=== PATIENT | female | born 1955 | race Caucasian/White ===

== ENCOUNTER 2017-12-21 17:03 | Emergency (ER) | payer SELFPAY ==
[~2017-12-21] VITALS: Ht 157.5 cm; Wt 93.0 kg
[~2017-12-21 17:03] MED LIST: VASOTEC10 M1 PO
--- NOTE | 2017-12-21 19:08 | Diagnostic Imaging Report ---
ADDENDUM #1 Indication: Fall Signed by: Dr. Shaji Langford MD on 12/25/2017 9:12 AM ORIGINAL REPORT EXAM: ANKLE 3+ VIEWS LEFT DATE: 12/21/2017 5:58 PM INDICATION: \S\FALL COMPARISON: None FINDINGS: No significant soft tissue swelling. Probable osteochondral lesion medial aspect talar dome. Mortise is symmetric. Moderate plantar and posterior calcaneal enthesophytes present. IMPRESSION: No definite acute finding. Probable osteochondral lesion of the talar dome. Outpatient MRI could be obtained for further evaluation if indicated. Signed by: Dr. Shaji Langford MD on 12/21/2017 7:05 PM
--- NOTE | 2017-12-21 19:08 | Diagnostic Imaging Report ---
ADDENDUM #1 Indication: Fall Signed by: Dr. Shaji Langford MD on 12/25/2017 9:12 AM ORIGINAL REPORT EXAM: KNEE LEFT THREE VIEWS DATE: 12/21/2017 5:58 PM INDICATION: \S\FALL COMPARISON: None FINDINGS: No fracture or subluxation. No significant degenerative change. No significant joint effusion. IMPRESSION: No acute findings. Signed by: Dr. Shaji Langford MD on 12/21/2017 7:05 PM
--- NOTE | 2017-12-21 19:09 | Diagnostic Imaging Report ---
ADDENDUM #1 Indication: Fall Signed by: Dr. Shaji Langford MD on 12/25/2017 9:12 AM ORIGINAL REPORT EXAM: HIP LEFT 2-3 VW (+/- PELVIS) DATE: 12/21/2017 5:58 PM INDICATION: \S\FALL COMPARISON: None FINDINGS: No acute fracture subluxation. Mild left hip osteoarthritis with preserved joint space. Well-corticated ossific density inferior to initial tuberosity likely sequela of prior trauma. Degenerative changes SI joints. IMPRESSION: Chronic changes as above. Signed by: Dr. Shaji Langford MD on 12/21/2017 7:06 PM
[2017-12-21 21:15] VITALS: BP 141/79
== END 2017-12-21 21:15 | disposition home or self-care (01) ==
LOC: ER 17:03
DX: S70.02XA Contusion of left hip, initial encounter (principal); S80.02XA Contusion of left knee, initial encounter; S90.02XA Contusion of left ankle, initial encounter; R26.89 Other abnormalities of gait and mobility; W01.0XXA Fall on same level from slipping, tripping and stumbling without subsequent striking against object, initial encounter; Y92.008 Other place in unspecified non-institutional (private) residence as the place of occurrence of the external cause; I10 Essential (primary) hypertension; E05.90 Thyrotoxicosis, unspecified without thyrotoxic crisis or storm; Z85.53 Personal history of malignant neoplasm of renal pelvis; Z93.3 Colostomy status
CPT/HCPCS: 99282

== ENCOUNTER 2021-07-13 18:50 | Emergency (ER) | payer MEDICARE ==
[~2021-07-13] VITALS: Ht 157.5 cm; Wt 87.1 kg
[~2021-07-13 18:50] MED LIST changes: +ETOMIDATE 2 MG/ML 10 ML INJ IV ONE; +SUCCINYLCHOLINE CHLORIDE 20 MG/ML 10ML VIAL ONE
[2021-07-13] MEDS ORDERED: NALOXONE HCL 2MG/2 ML SYRINGE IV ONE (19:00)
[2021-07-13] MEDS ORDERED: LEVETIRACETAM 500MG/5ML VIAL 1,000 MG in SODIUM CHLORIDE 0.9% 100 ML IV STA (19:09)
[2021-07-13] MEDS ORDERED: NALOXONE HCL 2MG/2 ML SYRINGE ONE (19:13)
[2021-07-13] MEDS ORDERED: ONDANSETRON HCL INJ 2MG/ML 2ML 2 MG/ML VIAL ONE (19:33)
[2021-07-13 19:58] LABS: BASOPHILS # (AUTO) 0.1 (0.0-0.1); BASOPHILS % 0.7 % (0.0-1.0); EOSINOPHILS # (AUTO) 0.4 (0.0-0.4); EOSINOPHILS % 3.3 % (0.0-6.0); HEMATOCRIT 42.3 % (34.2-44.1); HEMOGLOBIN 13.6 g/dL (12.0-16.0); LYMPHOCYTES # (AUTO) 1.4 (1.0-3.2); LYMPHOCYTES % 12.8 % (18.0-39.1); MEAN CORPUSCULAR HEMOGLOBIN 29.8 pg (28-32); MEAN CORPUSCULAR HGB CONC 32.2 g/dL (31-35); MEAN CORPUSCULAR VOLUME 92.6 fL (81-99); MONOCYTES # (AUTO) 0.7 (0.2-0.8); NEUTROPHILS # (AUTO) 8.4 (2.1-6.9); NEUTROPHILS % 76.5 % (38.7-80.0); PLATELET COUNT 253 x10e3/uL (140-360); RED BLOOD COUNT 4.57 x10e6/uL (3.6-5.1)
[2021-07-13 20:00] LABS: AMPHETAMINES SCREEN,URINE NEGATIVE (NEGATIVE); BENZODIAZEPINES SCREEN,URINE NEGATIVE (NEGATIVE); PHENCYCLIDINE SCREEN,URINE NEGATIVE (NEGATIVE)
[2021-07-13 20:02] LABS: CLARITY,URINE SL CLOUDY (CLEAR); COLOR,URINE YELLOW (YELLOW); LEUKOCYTE ESTERASE ,URINE NEGATIVE (NEGATIVE); NITRITE,URINE NEGATIVE (NEGATIVE)
[2021-07-13 20:03] LABS: ABG HCO3 31 mmol/L (22-26); ABG PCO2 55 mmHg (35-45); ABG PH 7.36 (7.35-7.45); ABG PO2 52 mmHg (80-105); ABG TCO2 33
[2021-07-13 20:03] LABS: KETONES,URINE TRACE (NEGATIVE); PROTEIN,URINE DIPSTICK TRACE (NEGATIVE); URINE UROBILINOGEN 0.2 mg/dL (0.2 - 1)
[2021-07-13 20:08] LABS: INR 0.92; PROTHROMBIN TIME 13.2 seconds (11.9-14.5)
[2021-07-13 20:09] LABS: PARTIAL THROMBOPLASTIN TIME 27.2 seconds (23.8-35.5)
[2021-07-13 20:13] LABS: ALBUMIN 3.5 g/dL (3.5-5.0); ALBUMIN/GLOBULIN RATIO 1.1 (0.8-2.0); ANION GAP 14.4 mmol/L (8-16); CALCIUM 9.3 mg/dL (8.4-10.2); CREATININE, SERUM 0.92 mg/dL (0.57-1.11); POTASSIUM 4.4 mmol/L (3.5-5.1)
[2021-07-13 20:20] LABS: CREATINE KINASE MB 1.4 ng/mL (0-5.0)
[2021-07-13 20:22] LABS: B-TYPE NATRIURETIC PEPTIDE2 98.2 pg/mL (0-100)
[2021-07-13] MEDS ORDERED: ALTEPLASE 50 MG/VIAL (29 MILLION IU) IV ONE ×2 (20:30)
[2021-07-13] MEDS ORDERED: SUCCINYLCHOLINE 200 MG/10 ML SYR IV STA (20:35)
[2021-07-13] MEDS ORDERED: ETOMIDATE 2 MG/ML 10 ML INJ IV STA (20:35)
[2021-07-13] MEDS ORDERED: ALTEPLASE 100 MG/VIAL ONE (20:47)
[2021-07-13] MEDS ORDERED: SODIUM CHLORIDE 0.9% 50ML 50 ML ONE (20:55)
[2021-07-13] MEDS: FENTANYL 2000MCG/NS 250 250 ML IV SCH ×2 (21:07→21:15)
[2021-07-13] MEDS ORDERED: FENTANYL 2000MCG/NS 250 250 ML ONE (21:12)
[2021-07-13] MEDS ORDERED: LABETALOL HCL 5 MG/ML 20ML VIAL IV STA (21:15)
[2021-07-13] MEDS ORDERED: LABETALOL HCL 20 ML ONE (21:16)
[2021-07-13] MEDS ORDERED: SODIUM CHLORIDE 0.9% 100 ML ONE (22:14)
[2021-07-13] MEDS ORDERED: IOPAMIDOL 370 MG/ML 200 ML INFUS..BTL INJ ONE (22:14)
== END 2021-07-13 21:25 | disposition other institution (70) ==
LOC: ER 18:55
DX: I65.1 Occlusion and stenosis of basilar artery (principal); J10.1 Influenza due to other identified influenza virus with other respiratory manifestations; Z20.822 Contact with and (suspected) exposure to COVID-19; I10 Essential (primary) hypertension; E78.00 Pure hypercholesterolemia, unspecified; Z85.048 Personal history of other malignant neoplasm of rectum, rectosigmoid junction, and anus; Z93.3 Colostomy status
CPT/HCPCS: 31500; 36415; 36600; 51700; 70450; 70496; 70498; 71045 ×2; 80053; 80307; 81001; 82550; 82553; 82805; 83605; 83880; 84484; 85025; 85610; 85730; 87040; 87086; 94003; 99285; J0330; J1953; J2310; J2405; J3490; J7050; Q9967; U0002

== ENCOUNTER 2021-09-15 10:45 | Emergency (ER) | payer MEDICARE ==
[~2021-09-15] VITALS: Ht 157.5 cm; Wt 87.1 kg
[~2021-09-15 10:45] MED LIST changes: -ETOMIDATE 2 MG/ML 10 ML INJ IV ONE; -SUCCINYLCHOLINE CHLORIDE 20 MG/ML 10ML VIAL ONE
== END 2021-09-15 12:21 | disposition home or self-care (01) ==
LOC: ER 10:51
DX: Z46.6 Encounter for fitting and adjustment of urinary device (principal); N31.9 Neuromuscular dysfunction of bladder, unspecified; I69.351 Hemiplegia and hemiparesis following cerebral infarction affecting right dominant side; I10 Essential (primary) hypertension; E03.9 Hypothyroidism, unspecified; Z85.048 Personal history of other malignant neoplasm of rectum, rectosigmoid junction, and anus
CPT/HCPCS: 51700; 99283

== ENCOUNTER 2021-09-26 20:36 | Inpatient (IN) | payer MEDICARE ==
[~2021-09-26] VITALS: Ht 157.5 cm; Wt 87.3 kg
[2021-09-26] MEDS ORDERED: ONDANSETRON HCL INJ 2MG/ML 2ML 2 MG/ML VIAL IV STA (20:40)
[2021-09-26] MEDS ORDERED: SODIUM CHLORIDE 0.9% 1000ML 1,000 ML IV STA ×2 (20:40→20:54)
[2021-09-26] MEDS ORDERED: DILTIAZEM HCL 5 MG/ML 5 ML VIAL IV STA (20:54)
[2021-09-26] MEDS ORDERED: DIGOXIN INJ 0.25 MG/ML 2 ML AMP IV STA (20:54)
[2021-09-26] MEDS ORDERED: METOPROLOL TARTRATE INJ 1 MG/ML VIAL IV STA (20:54)
[2021-09-26 21:09] LABS: BASOPHILS # (AUTO) 0.1 (0.0-0.1); BASOPHILS % 0.3 % (0.0-1.0); EOSINOPHILS % 0.1 % (0.0-6.0); HEMATOCRIT 32.7 % (34.2-44.1); HEMOGLOBIN 10.1 g/dL (12.0-16.0); LYMPHOCYTES # (AUTO) 0.5 (1.0-3.2); LYMPHOCYTES % 2.1 % (18.0-39.1); MEAN CORPUSCULAR HEMOGLOBIN 28.4 pg (28-32); MEAN CORPUSCULAR HGB CONC 30.9 g/dL (31-35); MEAN CORPUSCULAR VOLUME 91.9 fL (81-99); MONOCYTES % 4.6 % (4.4-11.3); NEUTROPHILS # (AUTO) 19.9 (2.1-6.9); NEUTROPHILS % 92.2 % (38.7-80.0); PLATELET COUNT 331 x10e3/uL (140-360); RED BLOOD COUNT 3.56 x10e6/uL (3.6-5.1); RED CELL DISTRIBUTION WIDTH 14.6 % (11.7-14.4)
[2021-09-26 21:17] LABS: CLARITY,URINE HAZY (CLEAR); COLOR,URINE YELLOW (YELLOW); KETONES,URINE TRACE (NEGATIVE); LEUKOCYTE ESTERASE ,URINE SMALL (NEGATIVE); NITRITE,URINE POSITIVE (NEGATIVE); PROTEIN,URINE DIPSTICK 2+ (NEGATIVE); URINE UROBILINOGEN 0.2 mg/dL (0.2 - 1)
[2021-09-26 21:20] LABS: AMORPHOUS SEDIMENT,URINE FEW (FEW); BACTERIA,URINE MANY /HPF; EPITHELIAL CELLS,URINE FEW /LPF; WBC,URINE (MAN) >50 /HPF (0-5)
[2021-09-26 21:21] LABS: MUCUS,URINE FEW (RARE)
[2021-09-26 21:30] LABS: ALANINE AMINOTRANSFERASE 7 IU/L (0-55); ALBUMIN/GLOBULIN RATIO 0.8 (0.8-2.0); ALKALINE PHOSPHATASE 65 IU/L (40-150); ANION GAP 14.8 mmol/L (8-16); BAND NEUTROPHILS % (MANUAL) 1 %; BLOOD UREA NITROGEN 14 mg/dL (7-26); BUN/CREATININE RATIO 18 (6-25); CALCIUM 8.2 mg/dL (8.4-10.2); CARBON DIOXIDE 23 mmol/L (22-29); CHLORIDE 104 mmol/L (98-107); CREATINE KINASE 15 IU/L (29-168); CREATININE, SERUM 0.79 mg/dL (0.57-1.11); GLUCOSE 224 mg/dL (74-118); LYMPHOCYTES % (MANUAL) 2 % (19-48); MONOCYTES % (MANUAL) 3 % (3.4-9.0); NEUTROPHILS % (MANUAL) 94 % (40-74); POTASSIUM 3.8 mmol/L (3.5-5.1); SODIUM 138 mmol/L (136-145)
[2021-09-26 21:31] LABS: PLATELET ESTIMATE ADEQUATE; PLATELET MORPHOLOGY COMMENT NORMAL; RBC MORPHOLOGY COMMENT NORMAL
[2021-09-26] MEDS ORDERED: IOPAMIDOL 370 MG/ML 100 ML INFUS..BTL INJ ONE (21:52)
[2021-09-26] MEDS ORDERED: Morphine 4mg Syringe 4 MG/ML INJ IV PRN (23:30)
[2021-09-26] MEDS ORDERED: ONDANSETRON HCL INJ 2MG/ML 2ML 2 MG/ML VIAL IV PRN (23:30)
[2021-09-27] MEDS: SODIUM CHLORIDE 0.9% 1000ML 1,000 ML IV SCH ×3 (00:59→16:27)
[2021-09-27] MEDS ORDERED: ACETAMINOPHEN 1000 MG/100 ML IV STA (01:30)
[2021-09-27] MEDS ORDERED: ACETAMINOPHEN 325 MG TAB PO ONE (01:30)
[2021-09-27] MEDS ORDERED: ACETAMINOPHEN 1000 MG/100 ML 100 ML IV ONE (01:37)
[2021-09-27] MEDS ORDERED: SODIUM CHLORIDE 0.9% 1000ML 1,000 ML IV STA (03:40)
[2021-09-27] MEDS: ENOXAPARIN INJ 80 MG/0.8 ML SYR SC SCH ×2 (09:04→21:05)
[2021-09-27] MEDS: METOPROLOL SUCCINATE 50 MG TAB XL PO SCH (09:05)
[2021-09-27 09:11] LABS: BASOPHILS # (AUTO) 0.1 (0.0-0.1); BASOPHILS % 0.2 % (0.0-1.0); HEMATOCRIT 31.5 % (34.2-44.1); HEMOGLOBIN 9.4 g/dL (12.0-16.0); LYMPHOCYTES # (AUTO) 0.5 (1.0-3.2); LYMPHOCYTES % 2.3 % (18.0-39.1); MEAN CORPUSCULAR HEMOGLOBIN 28.6 pg (28-32); MEAN CORPUSCULAR HGB CONC 29.8 g/dL (31-35); MEAN CORPUSCULAR VOLUME 95.7 fL (81-99); MONOCYTES # (AUTO) 0.7 (0.2-0.8); MONOCYTES % 3.4 % (4.4-11.3); NEUTROPHILS # (AUTO) 19.3 (2.1-6.9); NEUTROPHILS % 93.7 % (38.7-80.0); PLATELET COUNT 283 x10e3/uL (140-360); RED BLOOD COUNT 3.29 x10e6/uL (3.6-5.1); RED CELL DISTRIBUTION WIDTH 14.9 % (11.7-14.4)
[2021-09-27 09:45] LABS: ALBUMIN 2.5 g/dL (3.5-5.0); ALBUMIN/GLOBULIN RATIO 0.8 (0.8-2.0); ALKALINE PHOSPHATASE 55 IU/L (40-150); ANION GAP 13.1 mmol/L (8-16); BLOOD UREA NITROGEN 12 mg/dL (7-26); BUN/CREATININE RATIO 15 (6-25); CALCIUM 7.7 mg/dL (8.4-10.2); CARBON DIOXIDE 24 mmol/L (22-29); CHLORIDE 108 mmol/L (98-107); CREATININE, SERUM 0.81 mg/dL (0.57-1.11); GLUCOSE 179 mg/dL (74-118); POTASSIUM 4.1 mmol/L (3.5-5.1); SODIUM 141 mmol/L (136-145)
[2021-09-27 09:52] LABS: ALANINE AMINOTRANSFERASE < 6 IU/L (0-55)
[2021-09-27 09:58] LABS: CREATINE KINASE 23 IU/L (29-168)
[2021-09-27] MEDS: ACETAMINOPHEN 325 MG TAB PO PRN ×2 (11:10→22:00)
[2021-09-27 13:30] VITALS: BP 103/63
[2021-09-27 14:24] VITALS: BP 112/54
[2021-09-27] MEDS ORDERED: ELIQUIS5 MG PO (14:28)
[2021-09-27] MEDS ORDERED: ASPIRIN81 MG PO (14:28)
[2021-09-27] MEDS ORDERED: DOCUSATE SODIU100 MG PO (14:28)
[2021-09-27] MEDS ORDERED: SENNA LAX8.6 MG PO (14:28)
[2021-09-27] MEDS ORDERED: ARNUITY ELLIP100 MCG (14:28)
[2021-09-27] MEDS ORDERED: METOPROLOL SUCC25 MG PO (14:28)
[2021-09-27] MEDS ORDERED: ATORVASTATIN CA20 MG PO (14:28)
[2021-09-27] MEDS ORDERED: GLIPIZIDE ER5 MG PO (14:28)
[2021-09-27] MEDS ORDERED: NIFEDIPINE ER30 M1 PO (14:28)
[2021-09-27] MEDS ORDERED: LISINOPRIL10 MG PO (14:28)
[2021-09-27 16:15] VITALS: BP 86/53
[2021-09-27 18:02] LABS: CREATINE KINASE 34 IU/L (29-168)
[2021-09-27 20:00] VITALS: BP 124/54
[2021-09-27 20:23] VITALS: BP 86/53
[2021-09-28] VITALS (9 sets, daily range): BP systolic 109–134; BP diastolic 56–82
[2021-09-28] MEDS: SODIUM CHLORIDE 0.9% 1000ML 1,000 ML IV SCH ×4 (00:38→23:16)
[2021-09-28 06:52] LABS: BASOPHILS % 0.3 % (0.0-1.0); EOSINOPHILS # (AUTO) 0.1 (0.0-0.4); EOSINOPHILS % 0.4 % (0.0-6.0); HEMATOCRIT 27.4 % (34.2-44.1); HEMOGLOBIN 8.3 g/dL (12.0-16.0); LYMPHOCYTES # (AUTO) 0.6 (1.0-3.2); MEAN CORPUSCULAR HEMOGLOBIN 28.6 pg (28-32); MEAN CORPUSCULAR HGB CONC 30.3 g/dL (31-35); MEAN CORPUSCULAR VOLUME 94.5 fL (81-99); MONOCYTES # (AUTO) 0.5 (0.2-0.8); MONOCYTES % 4.1 % (4.4-11.3); NEUTROPHILS # (AUTO) 10.9 (2.1-6.9); NEUTROPHILS % 89.4 % (38.7-80.0); PLATELET COUNT 241 x10e3/uL (140-360); RED CELL DISTRIBUTION WIDTH 14.9 % (11.7-14.4)
[2021-09-28] MEDS: ENALAPRIL MALEATE 10 MG TAB PO SCH (09:00)
[2021-09-28] MEDS: METOPROLOL SUCCINATE 50 MG TAB XL PO SCH (11:40)
[2021-09-28] MEDS: ACETAMINOPHEN 325 MG TAB PO PRN (17:13)
[2021-09-28] MEDS: RIVAROXABAN 20 MG TABLET PO SCH (17:17)
[2021-09-29] VITALS (8 sets, daily range): BP systolic 118–148; BP diastolic 59–89
[2021-09-29] MEDS: ACETAMINOPHEN 325 MG TAB PO PRN ×2 (00:51→22:44)
[2021-09-29 06:07] LABS: BASOPHILS % 0.4 % (0.0-1.0); EOSINOPHILS % 0.4 % (0.0-6.0); HEMATOCRIT 27.8 % (34.2-44.1); HEMOGLOBIN 8.3 g/dL (12.0-16.0); LYMPHOCYTES # (AUTO) 0.4 (1.0-3.2); LYMPHOCYTES % 5.8 % (18.0-39.1); MEAN CORPUSCULAR HEMOGLOBIN 27.9 pg (28-32); MEAN CORPUSCULAR HGB CONC 29.9 g/dL (31-35); MEAN CORPUSCULAR VOLUME 93.6 fL (81-99); MONOCYTES # (AUTO) 0.4 (0.2-0.8); MONOCYTES % 4.9 % (4.4-11.3); NEUTROPHILS # (AUTO) 6.5 (2.1-6.9); NEUTROPHILS % 87.7 % (38.7-80.0); PLATELET COUNT 210 x10e3/uL (140-360); RED BLOOD COUNT 2.97 x10e6/uL (3.6-5.1)
[2021-09-29 06:32] LABS: ALBUMIN 2.2 g/dL (3.5-5.0); ALBUMIN/GLOBULIN RATIO 0.6 (0.8-2.0); ANION GAP 11.7 mmol/L (8-16); CALCIUM 10.4 mg/dL (8.4-10.2); POTASSIUM 3.7 mmol/L (3.5-5.1)
[2021-09-29 06:58] LABS: THYROID STIMULATING HORMONE 0.458 uIU/mL (0.350-4.940)
[2021-09-29] MEDS: GLIMEPIRIDE 2 MG TAB PO SCH ×2 (10:11→16:59)
[2021-09-29] MEDS: METOPROLOL SUCCINATE 50 MG TAB XL PO SCH (10:12)
[2021-09-29] MEDS: ENALAPRIL MALEATE 10 MG TAB PO SCH (10:12)
[2021-09-29] MEDS: PANTOPRAZOLE SOD 40 MG TABEC PO SCH (16:59)
[2021-09-29] MEDS: RIVAROXABAN 20 MG TABLET PO SCH (16:59)
[2021-09-29] MEDS ORDERED: METOPROLOL TARTRATE 25 MG TAB PO ONE (23:30)
[2021-09-30] VITALS: BP 149/87
[2021-09-30] MEDS ORDERED: METOPROLOL TARTRATE 25 MG TAB PO SCH
[2021-09-30 04:00] VITALS: BP 145/90
[2021-09-30 06:29] LABS: ALBUMIN 2.3 g/dL (3.5-5.0); ALBUMIN/GLOBULIN RATIO 0.5 (0.8-2.0); ANION GAP 12.2 mmol/L (8-16); CALCIUM 8.2 mg/dL (8.4-10.2); CREATININE, SERUM 0.84 mg/dL (0.57-1.11); POTASSIUM 4.2 mmol/L (3.5-5.1)
[2021-09-30 08:38] VITALS: BP 166/96
[2021-09-30] MEDS ORDERED: METOPROLOL SUCCINATE 50 MG TAB XL PO SCH (09:15)
[2021-09-30] MEDS: ENALAPRIL MALEATE 10 MG TAB PO SCH (09:44)
[2021-09-30] MEDS: GLIMEPIRIDE 2 MG TAB PO SCH (09:44)
[2021-09-30] MEDS: PANTOPRAZOLE SOD 40 MG TABEC PO SCH (09:44)
[2021-09-30] MEDS ORDERED: FUROSEMIDE INJ 10 MG/ML 4 ML VIAL IV ONE (10:15)
[2021-09-30 12:17] VITALS: BP 150/92
[2021-09-30 16:20] VITALS: BP 154/86
[2021-09-30] MEDS ORDERED: ONDANSETRON HCL 4 MG ORAL DISINTEGRATING TAB PO PRN (16:30)
== END 2021-09-30 16:27 | disposition home or self-care (01) | DRG 871 ==
LOC: ER 20:39 → ERHOLD 23:21 → MED/SURG2 09-27 13:04
PROVIDERS: ADMIT Internal Medicine; ATTEND Internal Medicine
DX: A41.59 Other Gram-negative sepsis (principal); G93.41 Metabolic encephalopathy; I48.20 Chronic atrial fibrillation, unspecified; N10 Acute pyelonephritis; E03.9 Hypothyroidism, unspecified; Z86.73 Personal history of transient ischemic attack (TIA), and cerebral infarction without residual deficits; R65.20 Severe sepsis without septic shock; I10 Essential (primary) hypertension; D63.8 Anemia in other chronic diseases classified elsewhere; E66.9 Obesity, unspecified; Z85.048 Personal history of other malignant neoplasm of rectum, rectosigmoid junction, and anus; E05.90 Thyrotoxicosis, unspecified without thyrotoxic crisis or storm; Z93.3 Colostomy status; Z88.8 Allergy status to other drugs, medicaments and biological substances; Z20.822 Contact with and (suspected) exposure to COVID-19; Z90.49 Acquired absence of other specified parts of digestive tract; Z79.01 Long term (current) use of anticoagulants; Z68.35 Body mass index [BMI] 35.0-35.9, adult; B96.1 Klebsiella pneumoniae [K. pneumoniae] as the cause of diseases classified elsewhere
CPT/HCPCS: 36415; 51700; 70450; 74177; 80053; 81001; 82270; 82550; 82553; 82948; 83605; 83690; 84443; 84484; 85025; 87040; 87071; 87086; 87186; 87205; 93005; 93306; 93970; 99251; 99284; J0696; J1160; J1650; J1940; J2405; J2543; J7030; Q9967

== ENCOUNTER 2023-04-03 12:30 | Outpatient (RCR) | payer MEDICARE ==
[~2023-04-03 12:30] MED LIST changes: +ARNUITY ELLIP100 MCG; +ASPIRIN81 MG PO; +ATORVASTATIN CA20 MG PO; +DOCUSATE SODIU100 MG PO; +ELIQUIS5 MG PO; +FARXIGA10 MG PO; +FEROSUL325 MG PO; +FUROSEMIDE20 MG PO; +GLIMEPIRIDE2 MG PO; +GLIPIZIDE ER5 MG PO; +HYDRALAZINE HCL50 MG PO; +JANUVIA100 MG PO; +LISINOPRIL10 MG PO; +METOPROLOL SUCC25 MG PO; +NIFEDIPINE ER30 M1 PO; +SENNA LAX8.6 MG PO
== END 2023-04-06 ==
LOC: PT 12:30
PROVIDERS: ATTEND Internal Medicine
DX: R26.81 Unsteadiness on feet (principal); M25.521 Pain in right elbow; M79.622 Pain in left upper arm; Z86.73 Personal history of transient ischemic attack (TIA), and cerebral infarction without residual deficits

== ENCOUNTER 2024-02-25 18:04 | Inpatient (IN) | payer MEDICARE ==
[~2024-02-25] VITALS: Ht 157.5 cm; Wt 90.7 kg
[~2024-02-25 18:04] MED LIST changes: +LIDOCAINE HCL 2% LOCAL INJ 5 ML SDV VIAL INJ ONE; +METOCLOPRAMIDE HCL 10 MG/2ML VIAL ONE; +METOPROLOL TARTRATE INJ 1 MG/ML VIAL ONE; +ONDANSETRON HCL INJ 2MG/ML 2ML 2 MG/ML VIAL ONE; +PROPOFOL IV EMULSION 10 MG/ML 20 ML VIAL ONE
[2024-02-25 18:10] VITALS: PULSE 90; RESP 17; TEMP 98.8
[2024-02-25] MEDS ORDERED: SODIUM CHLORIDE 0.9% 1000ML 1,000 ML ONE (18:46)
[2024-02-25] MEDS ORDERED: KETOROLAC TROMETHAMINE 30 MG/ML VIAL ONE (18:46)
[2024-02-25] MEDS: KETOROLAC TROMETHAMINE 30 MG/ML VIAL IV STA (19:04)
[2024-02-25] MEDS: SODIUM CHLORIDE 0.9% 1000ML 1,000 ML IV SCH (19:05)
[2024-02-25] MEDS: Morphine 4mg INJECTION 4 MG/ML INJ IV ONE (22:13)
[2024-02-25] MEDS: ONDANSETRON HCL INJ 2MG/ML 2ML 2 MG/ML VIAL IV STA (22:13)
[2024-02-25] MEDS ORDERED: HYDROMORPHONE 1MG/1ML INJ IV PRN (23:45)
[2024-02-25] MEDS ORDERED: PROMETHAZINE HCL (IM) 25 MG/ML VIAL IM PRN (23:45)
[2024-02-25] MEDS ORDERED: SODIUM CHLORIDE FLUSH 10 ML SYR INJ PRN (23:45)
[2024-02-25] MEDS ORDERED: ONDANSETRON HCL INJ 2MG/ML 2ML 2 MG/ML VIAL IV PRN (23:45)
[2024-02-26] VITALS (9 sets, daily range): BP systolic 96–119; BP diastolic 55–80; PULSE 77–92; RESP 16–18; TEMP 97–98.6; O2SAT 97–99
[2024-02-26] MEDS: METRONIDAZOLE 500MG/NS 100ML 100 ML IV STA (00:15)
[2024-02-26] MEDS ORDERED: IOPAMIDOL 370 MG/ML 100 ML INFUS..BTL INJ ONE (00:46)
[2024-02-26] MEDS: METRONIDAZOLE 500MG/NS 100ML 100 ML IV SCH (05:18)
[2024-02-26] MEDS: ACETAMINOPHEN 325 MG TAB PO PRN (05:25)
[2024-02-26] MEDS: INSULIN LISPRO 100 UNIT/1 ML 3ML VIAL SQ SCH (07:30)
[2024-02-26 07:35] LABS: BASOPHILS # (AUTO) 0.1 (0.0-0.1); BASOPHILS % 0.4 % (0.0-1.0); EOSINOPHILS # (AUTO) 0.3 (0.0-0.4); EOSINOPHILS % 2.8 % (0.0-6.0); HEMATOCRIT 31.8 % (34.2-44.1); HEMOGLOBIN 9.3 g/dL (12.0-16.0); LYMPHOCYTES # (AUTO) 0.4 (1.0-3.2); LYMPHOCYTES % 3.7 % (18.0-39.1); MEAN CORPUSCULAR HEMOGLOBIN 26.7 pg (28-32); MEAN CORPUSCULAR HGB CONC 29.2 g/dL (31-35); MEAN CORPUSCULAR VOLUME 91.4 fL (81-99); MONOCYTES # (AUTO) 0.9 (0.2-0.8); MONOCYTES % 7.4 % (4.4-11.3); NEUTROPHILS # (AUTO) 9.8 (2.1-6.9); PLATELET COUNT 282 x10e3/uL (140-360); RED BLOOD COUNT 3.48 x10e6/uL (3.6-5.1); RED CELL DISTRIBUTION WIDTH 15.2 % (11.7-14.4); WHITE BLOOD COUNT 11.49 x10e3/uL (4.8-10.8)
[2024-02-26 08:15] LABS: ALBUMIN 2.4 g/dL (3.5-5.0); ALBUMIN/GLOBULIN RATIO 0.7 (0.8-2.0); ANION GAP 13.1 mmol/L (8-16); BILIRUBIN,TOTAL 0.5 mg/dL (0.2-1.2); CALCIUM 8.3 mg/dL (8.4-10.2); CREATININE, SERUM 1.74 mg/dL (0.57-1.11); POTASSIUM 4.1 mmol/L (3.5-5.1); TOTAL PROTEIN 5.8 g/dL (6.5-8.1)
[2024-02-26] MEDS: METOPROLOL SUCCINATE 25 MG TAB XL PO SCH (17:03)
[2024-02-26] MEDS: ENOXAPARIN SOD INJ 60 MG/0.6 ML SYR SC SCH (21:15)
[2024-02-27] VITALS (8 sets, daily range): BP systolic 108–131; BP diastolic 55–86; PULSE 81–97; RESP 16–20; TEMP 97–98.2; O2SAT 94–100
[2024-02-27] MEDS: SODIUM CHLORIDE 0.9% 250ML 250 ML ONE (02:40)
[2024-02-27 02:45] LABS: % IRON SATURATION 11 % (15-50); IRON 21 ug/dL (50-170); TOTAL IRON BINDING CAPACITY 196 ug/dL (261-478); TRANSFERRIN 140 mg/dL (180-382)
[2024-02-27 03:18] LABS: FOLATE 16.2 ng/mL (7.0-15.4)
[2024-02-27 06:19] LABS: BASOPHILS # (AUTO) 0.1 (0.0-0.1); BASOPHILS % 0.6 % (0.0-1.0); EOSINOPHILS # (AUTO) 0.3 (0.0-0.4); EOSINOPHILS % 3.4 % (0.0-6.0); HEMATOCRIT 31.4 % (34.2-44.1); HEMOGLOBIN 9.3 g/dL (12.0-16.0); LYMPHOCYTES # (AUTO) 0.6 (1.0-3.2); LYMPHOCYTES % 6.2 % (18.0-39.1); MEAN CORPUSCULAR HEMOGLOBIN 27.3 pg (28-32); MEAN CORPUSCULAR HGB CONC 29.6 g/dL (31-35); MEAN CORPUSCULAR VOLUME 92.1 fL (81-99); MONOCYTES # (AUTO) 0.6 (0.2-0.8); NEUTROPHILS # (AUTO) 7.4 (2.1-6.9); NEUTROPHILS % 82.2 % (38.7-80.0); PLATELET COUNT 296 x10e3/uL (140-360); RED BLOOD COUNT 3.41 x10e6/uL (3.6-5.1); RED CELL DISTRIBUTION WIDTH 15.1 % (11.7-14.4); WHITE BLOOD COUNT 8.94 x10e3/uL (4.8-10.8)
[2024-02-27 07:19] LABS: ANION GAP 13.1 mmol/L (8-16); CALCIUM 8.8 mg/dL (8.4-10.2); CREATININE, SERUM 1.75 mg/dL (0.57-1.11); POTASSIUM 4.1 mmol/L (3.5-5.1)
[2024-02-27] MEDS: DEXTROSE 50% SYRINGE 50 ML IV PRN (07:34)
[2024-02-27] MEDS: DEXTROSE 5%/0.45% SOD CHL 1,000 ML IV SCH (09:17)
[2024-02-28] VITALS (9 sets, daily range): BP systolic 116–144; BP diastolic 67–85; PULSE 78–92; RESP 16–22; TEMP 97.2–98; O2SAT 95–100
[2024-02-28] MEDS: CYANOCOBALAMIN INJ 1,000 MCG/ML VIAL IM ONE (01:31)
[2024-02-28 06:33] LABS: BASOPHILS # (AUTO) 0.1 (0.0-0.1); BASOPHILS % 0.8 % (0.0-1.0); EOSINOPHILS # (AUTO) 0.4 (0.0-0.4); EOSINOPHILS % 5.2 % (0.0-6.0); HEMATOCRIT 32.8 % (34.2-44.1); HEMOGLOBIN 9.7 g/dL (12.0-16.0); LYMPHOCYTES # (AUTO) 0.5 (1.0-3.2); LYMPHOCYTES % 6.5 % (18.0-39.1); MEAN CORPUSCULAR HEMOGLOBIN 27.4 pg (28-32); MEAN CORPUSCULAR HGB CONC 29.6 g/dL (31-35); MEAN CORPUSCULAR VOLUME 92.7 fL (81-99); MONOCYTES # (AUTO) 0.5 (0.2-0.8); MONOCYTES % 7.2 % (4.4-11.3); NEUTROPHILS # (AUTO) 5.7 (2.1-6.9); NEUTROPHILS % 79.7 % (38.7-80.0); PLATELET COUNT 309 x10e3/uL (140-360); RED BLOOD COUNT 3.54 x10e6/uL (3.6-5.1); RED CELL DISTRIBUTION WIDTH 14.9 % (11.7-14.4); WHITE BLOOD COUNT 7.09 x10e3/uL (4.8-10.8)
[2024-02-28 07:12] LABS: ANION GAP 11.1 mmol/L (8-16); CALCIUM 8.7 mg/dL (8.4-10.2); CREATININE, SERUM 1.57 mg/dL (0.57-1.11); POTASSIUM 4.1 mmol/L (3.5-5.1)
[2024-02-28] MEDS: IRON SUCROSE 100 MG in SODIUM CHLORIDE 0.9% 100 ML IV SCH (08:40)
[2024-02-28] MEDS: CYANOCOBALAMIN INJ 1,000 MCG/ML VIAL IM SCH ×2 (08:41→20:22)
[2024-02-28] MEDS ORDERED: HYDROCODONE/APAP 10MG-325MG TAB PO PRN (17:15)
[2024-02-28] MEDS ORDERED: MAGNESIUM HYDROXIDE 30 ML UDC PO PRN (17:15)
[2024-02-28] MEDS ORDERED: ALBUTEROL/IPRATROPIUM 3 ML NEB NEB PRN (17:15)
[2024-02-28] MEDS: SENNA-S TABLET PO SCH (17:15)
[2024-02-28] MEDS: FUROSEMIDE INJ 10 MG/ML 4 ML VIAL IV ONE (17:34)
[2024-02-28] MEDS: ALBUTEROL/IPRATROPIUM 3 ML NEB NEB SCH (17:35)
[2024-02-29] VITALS (13 sets, daily range): BP systolic 127–151; BP diastolic 65–85; PULSE 71–102; RESP 16–21; TEMP 97.4–98.1; O2SAT 93–100
[2024-02-29 05:43] LABS: BASOPHILS # (AUTO) 0.1 (0.0-0.1); BASOPHILS % 0.8 % (0.0-1.0); EOSINOPHILS # (AUTO) 0.3 (0.0-0.4); EOSINOPHILS % 3.9 % (0.0-6.0); HEMATOCRIT 34.6 % (34.2-44.1); HEMOGLOBIN 10.1 g/dL (12.0-16.0); LYMPHOCYTES # (AUTO) 0.5 (1.0-3.2); LYMPHOCYTES % 7.9 % (18.0-39.1); MEAN CORPUSCULAR HEMOGLOBIN 27.2 pg (28-32); MEAN CORPUSCULAR HGB CONC 29.2 g/dL (31-35); MONOCYTES # (AUTO) 0.5 (0.2-0.8); MONOCYTES % 7.9 % (4.4-11.3); NEUTROPHILS # (AUTO) 5.2 (2.1-6.9); NEUTROPHILS % 78.7 % (38.7-80.0); PLATELET COUNT 245 x10e3/uL (140-360); RED BLOOD COUNT 3.72 x10e6/uL (3.6-5.1); RED CELL DISTRIBUTION WIDTH 15.1 % (11.7-14.4); WHITE BLOOD COUNT 6.61 x10e3/uL (4.8-10.8)
[2024-02-29 06:15] LABS: CALCIUM 8.8 mg/dL (8.4-10.2); CREATININE, SERUM 1.41 mg/dL (0.57-1.11)
[2024-02-29] MEDS: CYANOCOBALAMIN INJ 1,000 MCG/ML VIAL IM SCH (08:38)
[2024-03-01] VITALS (10 sets, daily range): BP systolic 131–172; BP diastolic 65–90; PULSE 84–107; RESP 16–20; TEMP 97.2–98.1; O2SAT 81–100
[2024-03-01] MEDS ORDERED: ONDANSETRON HCL 4 MG ORAL DISINTEGRATING TAB PO PRN (10:30)
[2024-03-02] VITALS (10 sets, daily range): BP systolic 108–160; BP diastolic 53–87; PULSE 82–106; RESP 16–20; TEMP 97.3–98.7; O2SAT 95–100
[2024-03-03] VITALS (10 sets, daily range): BP systolic 125–159; BP diastolic 79–93; PULSE 82–121; RESP 18–23; TEMP 97.2–98.2; O2SAT 94–99
[2024-03-04] VITALS (11 sets, daily range): BP systolic 120–139; BP diastolic 60–85; PULSE 74–112; RESP 18–22; TEMP 97.4–99; O2SAT 95–98
[2024-03-04] MEDS: ENOXAPARIN SOD INJ 60 MG/0.6 ML SYR SC SCH (09:09)
[2024-03-04 09:51] LABS: BASOPHILS # (AUTO) 0.1 (0.0-0.1); BASOPHILS % 0.7 % (0.0-1.0); EOSINOPHILS # (AUTO) 0.4 (0.0-0.4); EOSINOPHILS % 4.8 % (0.0-6.0); HEMATOCRIT 38.4 % (34.2-44.1); HEMOGLOBIN 11.1 g/dL (12.0-16.0); LYMPHOCYTES # (AUTO) 0.5 (1.0-3.2); MEAN CORPUSCULAR HEMOGLOBIN 27.2 pg (28-32); MEAN CORPUSCULAR HGB CONC 28.9 g/dL (31-35); MEAN CORPUSCULAR VOLUME 94.1 fL (81-99); MONOCYTES # (AUTO) 0.4 (0.2-0.8); MONOCYTES % 5.2 % (4.4-11.3); NEUTROPHILS # (AUTO) 6.1 (2.1-6.9); NEUTROPHILS % 81.6 % (38.7-80.0); PLATELET COUNT 332 x10e3/uL (140-360); RED BLOOD COUNT 4.08 x10e6/uL (3.6-5.1); RED CELL DISTRIBUTION WIDTH 15.9 % (11.7-14.4); WHITE BLOOD COUNT 7.49 x10e3/uL (4.8-10.8)
[2024-03-04 10:08] LABS: ANION GAP 15.1 mmol/L (8-16); CALCIUM 8.8 mg/dL (8.4-10.2); CREATININE, SERUM 1.14 mg/dL (0.57-1.11); POTASSIUM 5.1 mmol/L (3.5-5.1)
[2024-03-04 10:34] LABS: MAGNESIUM 1.8 MG/DL (1.3-2.1); PHOSPHORUS 3.5 MG/DL (2.3-4.7)
[2024-03-04] MEDS ORDERED: IOPAMIDOL 370 MG/ML 100 ML INFUS..BTL INJ ONE (11:35)
[2024-03-05] VITALS (10 sets, daily range): BP systolic 110–140; BP diastolic 55–83; PULSE 76–114; RESP 18–19; TEMP 98–98.3; O2SAT 93–98
[2024-03-05 06:08] LABS: BASOPHILS # (AUTO) 0.1 (0.0-0.1); BASOPHILS % 0.7 % (0.0-1.0); EOSINOPHILS # (AUTO) 0.4 (0.0-0.4); EOSINOPHILS % 5.6 % (0.0-6.0); HEMATOCRIT 35.5 % (34.2-44.1); HEMOGLOBIN 10.5 g/dL (12.0-16.0); LYMPHOCYTES # (AUTO) 0.7 (1.0-3.2); LYMPHOCYTES % 10.1 % (18.0-39.1); MEAN CORPUSCULAR HEMOGLOBIN 27.3 pg (28-32); MEAN CORPUSCULAR HGB CONC 29.6 g/dL (31-35); MEAN CORPUSCULAR VOLUME 92.4 fL (81-99); MONOCYTES # (AUTO) 0.4 (0.2-0.8); MONOCYTES % 5.6 % (4.4-11.3); NEUTROPHILS # (AUTO) 5.5 (2.1-6.9); NEUTROPHILS % 76.5 % (38.7-80.0); PLATELET COUNT 315 x10e3/uL (140-360); RED BLOOD COUNT 3.84 x10e6/uL (3.6-5.1); RED CELL DISTRIBUTION WIDTH 16.1 % (11.7-14.4); WHITE BLOOD COUNT 7.13 x10e3/uL (4.8-10.8)
[2024-03-05 06:45] LABS: ANION GAP 14.7 mmol/L (8-16); CREATININE, SERUM 1.18 mg/dL (0.57-1.11); POTASSIUM 4.7 mmol/L (3.5-5.1)
[2024-03-06] VITALS (10 sets, daily range): BP systolic 133–152; BP diastolic 64–99; PULSE 81–99; RESP 19–20; TEMP 97.6–98.4; O2SAT 93–98
[2024-03-07] VITALS (11 sets, daily range): BP systolic 122–149; BP diastolic 69–88; PULSE 87–111; RESP 15–19; TEMP 97.3–98.6; O2SAT 94–100
[2024-03-07 06:01] LABS: BASOPHILS % 0.5 % (0.0-1.0); EOSINOPHILS # (AUTO) 0.4 (0.0-0.4); HEMATOCRIT 36.5 % (34.2-44.1); HEMOGLOBIN 10.7 g/dL (12.0-16.0); LYMPHOCYTES # (AUTO) 0.6 (1.0-3.2); LYMPHOCYTES % 7.5 % (18.0-39.1); MEAN CORPUSCULAR HEMOGLOBIN 27.3 pg (28-32); MEAN CORPUSCULAR HGB CONC 29.3 g/dL (31-35); MEAN CORPUSCULAR VOLUME 93.1 fL (81-99); MONOCYTES # (AUTO) 0.5 (0.2-0.8); MONOCYTES % 5.5 % (4.4-11.3); NEUTROPHILS # (AUTO) 6.8 (2.1-6.9); NEUTROPHILS % 80.5 % (38.7-80.0); PLATELET COUNT 278 x10e3/uL (140-360); RED BLOOD COUNT 3.92 x10e6/uL (3.6-5.1); RED CELL DISTRIBUTION WIDTH 16.2 % (11.7-14.4); WHITE BLOOD COUNT 8.38 x10e3/uL (4.8-10.8)
[2024-03-07 06:24] LABS: ANION GAP 14.9 mmol/L (8-16); CALCIUM 8.9 mg/dL (8.4-10.2); CREATININE, SERUM 1.27 mg/dL (0.57-1.11); POTASSIUM 4.9 mmol/L (3.5-5.1)
[2024-03-08] VITALS (9 sets, daily range): BP systolic 115–133; BP diastolic 72–81; PULSE 87–113; RESP 18–20; TEMP 97.6–98.5; O2SAT 95–98
[2024-03-08] MEDS ORDERED: FENTANYL CITRATE/PF 100MCG/2 ML INJ ONE (14:44)
[2024-03-09] VITALS (13 sets, daily range): BP systolic 92–131; BP diastolic 54–90; PULSE 72–116; RESP 18–20; TEMP 97.3–98.6; O2SAT 92–100
[2024-03-09] MEDS ORDERED: IOPAMIDOL 610MG/1ML 300 MG/ML VIAL IV ONE (06:41)
[2024-03-09] MEDS ORDERED: PHENAZOPYRIDINE HCL 100 MG TAB PO PRN (09:15)
[2024-03-09] MEDS: HYDROCODONE/APAP 10MG-325MG TAB PO PRN (10:46)
[2024-03-10] VITALS (9 sets, daily range): BP systolic 115–127; BP diastolic 58–80; PULSE 78–100; RESP 18–20; TEMP 98–98.7; O2SAT 95–99
[2024-03-10] MEDS: SOLIFENACIN SUCCINATE 5 MG TAB PO SCH (09:16)
[2024-03-10] MEDS: APIXABAN 5 MG TABLET PO SCH (16:28)
[2024-03-11] VITALS: BP 116/61; PULSE 91; RESP 20; TEMP 98.5; O2SAT 97
[2024-03-11 04:00] VITALS: BP 114/65; PULSE 95; RESP 20; TEMP 98.1; O2SAT 97
[2024-03-11 06:03] LABS: BASOPHILS # (AUTO) 0.1 (0.0-0.1); BASOPHILS % 0.7 % (0.0-1.0); EOSINOPHILS # (AUTO) 0.3 (0.0-0.4); EOSINOPHILS % 4.2 % (0.0-6.0); HEMATOCRIT 38.4 % (34.2-44.1); HEMOGLOBIN 11.1 g/dL (12.0-16.0); LYMPHOCYTES # (AUTO) 0.6 (1.0-3.2); LYMPHOCYTES % 8.2 % (18.0-39.1); MEAN CORPUSCULAR HEMOGLOBIN 27.3 pg (28-32); MEAN CORPUSCULAR HGB CONC 28.9 g/dL (31-35); MEAN CORPUSCULAR VOLUME 94.6 fL (81-99); MONOCYTES # (AUTO) 0.4 (0.2-0.8); MONOCYTES % 6.1 % (4.4-11.3); NEUTROPHILS # (AUTO) 5.4 (2.1-6.9); NEUTROPHILS % 80.2 % (38.7-80.0); PLATELET COUNT 262 x10e3/uL (140-360); RED BLOOD COUNT 4.06 x10e6/uL (3.6-5.1); RED CELL DISTRIBUTION WIDTH 16.7 % (11.7-14.4); WHITE BLOOD COUNT 6.71 x10e3/uL (4.8-10.8)
[2024-03-11 06:21] LABS: CALCIUM 9.5 mg/dL (8.4-10.2); CREATININE, SERUM 1.13 mg/dL (0.57-1.11)
[2024-03-11 07:44] VITALS: PULSE 103; RESP 18; O2SAT 93
[2024-03-11 08:12] VITALS: BP 140/84; PULSE 96; RESP 20; TEMP 98.4; O2SAT 98
[2024-03-11 08:41] VITALS: BP 140/84; PULSE 96; RESP 20; TEMP 98.4; O2SAT 98
[2024-03-11] MEDS: PANTOPRAZOLE SOD 40 MG TABEC PO SCH (10:10)
[2024-03-11 10:11] VITALS: BP 140/84; PULSE 96
[2024-03-15] MEDS ORDERED: PANTOPRAZOLE SO40 MG (22:33)
[2024-03-15] MEDS ORDERED: PREGABALIN25 MG PO (22:33)
[2024-03-16] MEDS ORDERED: LOPRESSOR25 MG PO (02:09)
== END 2024-03-11 12:22 | disposition home health service (06) | DRG 659 ==
LOC: FSED 18:07 → ERHOLD 23:55 → MED/SURG2 02-26 01:18
PROVIDERS: ADMIT Internal Medicine; ATTEND Internal Medicine
PROC: 0UJH7ZZ Inspection of Vagina and Cul-de-sac, Via Natural or Artificial Opening (ICD-10-PCS; 2024-03-09)
PROC: BT161ZZ Fluoroscopy of Right Ureter using Low Osmolar Contrast (ICD-10-PCS; 2024-03-09)
PROC: BT171ZZ Fluoroscopy of Left Ureter using Low Osmolar Contrast (ICD-10-PCS; 2024-03-09)
PROC: 0T788DZ Dilation of Bilateral Ureters with Intraluminal Device, Via Natural or Artificial Opening Endoscopic (ICD-10-PCS; principal; 2024-03-09 08:23)
DX: N13.1 Hydronephrosis with ureteral stricture, not elsewhere classified (principal); J18.9 Pneumonia, unspecified organism; K65.1 Peritoneal abscess; K63.1 Perforation of intestine (nontraumatic); K63.0 Abscess of intestine; I69.351 Hemiplegia and hemiparesis following cerebral infarction affecting right dominant side; I48.20 Chronic atrial fibrillation, unspecified; N13.4 Hydroureter; N17.9 Acute kidney failure, unspecified; Z66 Do not resuscitate; E86.0 Dehydration; E11.22 Type 2 diabetes mellitus with diabetic chronic kidney disease; I12.9 Hypertensive chronic kidney disease with stage 1 through stage 4 chronic kidney disease, or unspecified chronic kidney disease; E11.65 Type 2 diabetes mellitus with hyperglycemia; E78.5 Hyperlipidemia, unspecified; N18.9 Chronic kidney disease, unspecified; E03.9 Hypothyroidism, unspecified; E66.9 Obesity, unspecified; Z68.36 Body mass index [BMI] 36.0-36.9, adult; M51.26 Other intervertebral disc displacement, lumbar region; Z59.6 Low income; Z63.8 Other specified problems related to primary support group; N95.2 Postmenopausal atrophic vaginitis; N81.10 Cystocele, unspecified; Y95 Nosocomial condition; Z53.8 Procedure and treatment not carried out for other reasons; Z79.01 Long term (current) use of anticoagulants; Z79.82 Long term (current) use of aspirin; Z79.84 Long term (current) use of oral hypoglycemic drugs; Z85.048 Personal history of other malignant neoplasm of rectum, rectosigmoid junction, and anus; Z92.21 Personal history of antineoplastic chemotherapy; Z92.3 Personal history of irradiation; Z93.3 Colostomy status; Z90.49 Acquired absence of other specified parts of digestive tract; Z88.8 Allergy status to other drugs, medicaments and biological substances; Z87.891 Personal history of nicotine dependence
CPT/HCPCS: 36415; 74177; 74420; 74470; 80048; 80053; 80076; 81003; 82607; 82746; 82948; 83036; 83540; 83735; 84100; 84466; 85025; 85045; 87086; 94640; 94799; 96365; 96374; 96375; 99252; 99284; C1758; C1769; C2617; J1335; J1650; J1756; J1885; J1940; J2003; J2270; J2405; J2470; J2543; J2765; J3420; J7030; J7050; J7799; Q9967

== ENCOUNTER 2024-04-10 23:14 | Emergency (ER) | payer MEDICARE, OTHER ==
[~2024-04-10 23:14] MED LIST changes: -LIDOCAINE HCL 2% LOCAL INJ 5 ML SDV VIAL INJ ONE; +LOPRESSOR25 MG PO; -METOCLOPRAMIDE HCL 10 MG/2ML VIAL ONE; -METOPROLOL TARTRATE INJ 1 MG/ML VIAL ONE; -ONDANSETRON HCL INJ 2MG/ML 2ML 2 MG/ML VIAL ONE; +PANTOPRAZOLE SO40 MG; +PREGABALIN25 MG PO; -PROPOFOL IV EMULSION 10 MG/ML 20 ML VIAL ONE
[2024-04-10 23:46] LABS: BASOPHILS # (AUTO) 0.1 (0.0-0.1); BASOPHILS % 0.7 % (0.0-1.0); EOSINOPHILS # (AUTO) 0.1 (0.0-0.4); EOSINOPHILS % 0.8 % (0.0-6.0); HEMATOCRIT 27.1 % (34.2-44.1); HEMOGLOBIN 7.6 g/dL (12.0-16.0); LYMPHOCYTES # (AUTO) 0.5 (1.0-3.2); LYMPHOCYTES % 5.6 % (18.0-39.1); MEAN CORPUSCULAR VOLUME 96.1 fL (81-99); MONOCYTES # (AUTO) 0.7 (0.2-0.8); MONOCYTES % 7.5 % (4.4-11.3); NEUTROPHILS # (AUTO) 7.2 (2.1-6.9); NEUTROPHILS % 83.9 % (38.7-80.0); PLATELET COUNT 283 x10e3/uL (140-360); RED BLOOD COUNT 2.82 x10e6/uL (3.6-5.1); RED CELL DISTRIBUTION WIDTH 17.2 % (11.7-14.4); WHITE BLOOD COUNT 8.63 x10e3/uL (4.8-10.8)
[2024-04-10] MEDS: METOPROLOL TARTRATE INJ 1 MG/ML VIAL IV ONE (23:58)
[2024-04-11 00:12] LABS: ALANINE AMINOTRANSFERASE 7 IU/L (0-55); ALBUMIN 2.5 g/dL (3.5-5.0); ALBUMIN/GLOBULIN RATIO 0.5 (0.8-2.0); ALKALINE PHOSPHATASE 81 IU/L (40-150); ANION GAP 19.8 mmol/L (8-16); BILIRUBIN,TOTAL 0.7 mg/dL (0.2-1.2); BLOOD UREA NITROGEN 13 mg/dL (7-26); BUN/CREATININE RATIO 12 (6-25); CALCIUM 8.9 mg/dL (8.4-10.2); CARBON DIOXIDE 27 mmol/L (22-29); CHLORIDE 98 mmol/L (98-107); CREATININE, SERUM 1.07 mg/dL (0.57-1.11); EST GLOMERULAR FILTRATION RATE 57 ML/MIN (>=60); GLUCOSE 201 mg/dL (74-118); POTASSIUM 3.8 mmol/L (3.5-5.1); SODIUM 141 mmol/L (136-145); TOTAL PROTEIN 7.1 g/dL (6.5-8.1)
[2024-04-11 00:15] VITALS: PULSE 106; RESP 24; TEMP 98.3
[2024-04-11 00:30] LABS: TROPONIN I < 0.05 ng/mL (0.0-0.40)
[2024-04-11 00:39] LABS: CREATINE KINASE 8 IU/L (29-168)
[2024-04-11 02:45] VITALS: BP 126/75; PULSE 125; O2SAT 100
[2024-04-11 08:51] LABS: EOSINOPHILS % (MANUAL) 1 % (0-7); LYMPHOCYTES % (MANUAL) 3 % (19-48); MONOCYTES % (MANUAL) 2 % (3.4-9.0); NEUTROPHILS % (MANUAL) 94 % (40-74)
[2024-04-11 08:52] LABS: PLATELET ESTIMATE ADEQUATE; PLATELET MORPHOLOGY COMMENT NORMAL; RBC MORPHOLOGY COMMENT NORMAL
== END 2024-04-11 01:48 | disposition home or self-care (01) ==
LOC: ER 23:18
DX: R50.9 Fever, unspecified (principal); I48.20 Chronic atrial fibrillation, unspecified; D64.9 Anemia, unspecified; E11.65 Type 2 diabetes mellitus with hyperglycemia; Z99.2 Dependence on renal dialysis; I10 Essential (primary) hypertension; E78.5 Hyperlipidemia, unspecified; R94.31 Abnormal electrocardiogram [ECG] [EKG]; I69.351 Hemiplegia and hemiparesis following cerebral infarction affecting right dominant side; Z85.048 Personal history of other malignant neoplasm of rectum, rectosigmoid junction, and anus
CPT/HCPCS: 36415; 71045; 80053; 82550; 83880; 84484; 85025; 93005; 99284

== ENCOUNTER 2024-05-14 20:44 | Inpatient (IN) | payer MEDICARE, OTHER ==
[~2024-05-14] VITALS: Ht 157.5 cm; Wt 95.3 kg
[2024-05-14 20:55] VITALS: TEMP 98.7
[2024-05-14 21:52] LABS: BASOPHILS # (AUTO) 0.1 (0.0-0.1); EOSINOPHILS # (AUTO) 0.8 (0.0-0.4); EOSINOPHILS % 6.2 % (0.0-6.0); HEMATOCRIT 30.2 % (34.2-44.1); HEMOGLOBIN 8.6 g/dL (12.0-16.0); LYMPHOCYTES # (AUTO) 0.6 (1.0-3.2); LYMPHOCYTES % 4.6 % (18.0-39.1); MEAN CORPUSCULAR HEMOGLOBIN 26.2 pg (28-32); MEAN CORPUSCULAR HGB CONC 28.5 g/dL (31-35); MEAN CORPUSCULAR VOLUME 92.1 fL (81-99); MONOCYTES # (AUTO) 0.6 (0.2-0.8); NEUTROPHILS # (AUTO) 9.9 (2.1-6.9); NEUTROPHILS % 82.1 % (38.7-80.0); PLATELET COUNT 439 x10e3/uL (140-360); RED BLOOD COUNT 3.28 x10e6/uL (3.6-5.1); RED CELL DISTRIBUTION WIDTH 18.8 % (11.7-14.4); WHITE BLOOD COUNT 12.08 x10e3/uL (4.8-10.8)
[2024-05-14 22:17] LABS: ALBUMIN 2.4 g/dL (3.5-5.0); ALBUMIN/GLOBULIN RATIO 0.5 (0.8-2.0); BILIRUBIN,TOTAL 0.2 mg/dL (0.2-1.2); CALCIUM 9.4 mg/dL (8.4-10.2); CREATININE, SERUM 4.1 mg/dL (0.57-1.11)
[2024-05-14 22:52] LABS: CLARITY,URINE TURBID (CLEAR); COLOR,URINE RED (YELLOW); LEUKOCYTE ESTERASE ,URINE LARGE (NEGATIVE); NITRITE,URINE NEGATIVE (NEGATIVE); PH,URINE 6.5 (5 - 7)
[2024-05-14 22:53] LABS: BILIRUBIN,URINE NEGATIVE (NEGATIVE); GLUCOSE, URINE NEGATIVE (NEGATIVE); KETONES,URINE NEGATIVE (NEGATIVE); PROTEIN,URINE DIPSTICK >=300 (NEGATIVE); URINE UROBILINOGEN 0.2 mg/dL (0.2 - 1)
[2024-05-14 23:03] LABS: BACTERIA,URINE MANY /HPF; RBC,URINE >50 /HPF (0-5)
[2024-05-14 23:04] LABS: EPITHELIAL CELLS,URINE FEW /LPF; WBC,URINE (MAN) >50 /HPF (0-5)
[2024-05-15] VITALS (11 sets, daily range): BP systolic 102–127; BP diastolic 52–64; PULSE 64–100; RESP 16–20; TEMP 97.5–98.3; O2SAT 95–100
[2024-05-15] MEDS ORDERED: ONDANSETRON HCL INJ 2MG/ML 2ML 2 MG/ML VIAL IV PRN (02:00)
[2024-05-15] MEDS ORDERED: Morphine 4mg INJECTION 4 MG/ML INJ IV PRN (02:00)
[2024-05-15 04:52] LABS: ANISOCYTOSIS MODERATE; HYPOCHROMASIA MODERATE; MICROCYTOSIS SLIGHT; POIKILOCYTOSIS MODERATE; POLYCHROMASIA MODERATE
[2024-05-15 04:53] LABS: OVALOCYTES FEW; PLATELET ESTIMATE ADEQUATE; RBC MORPHOLOGY COMMENT ABNORMAL; STOMATOCYTES MODERATE
[2024-05-15 04:54] LABS: BURR CELLS SLIGHT; PLATELET MORPHOLOGY COMMENT FEW LARGE
[2024-05-15 06:18] LABS: TROPONIN I 0.01 ng/mL (0-0.300)
[2024-05-15] MEDS: SODIUM CHLORIDE 0.9% 1000ML 1,000 ML IV STA (09:31)
[2024-05-15 09:50] LABS: TROPONIN I 0.007 ng/mL (0-0.300)
[2024-05-15] MEDS: GLIMEPIRIDE 2 MG TAB PO SCH (12:01)
[2024-05-15] MEDS ORDERED: HEPARIN SOD (PORCINE) 1000 UNIT/ML SDV IV PRN (14:00)
[2024-05-15] MEDS: COLLAGENASE 5 GM TUBE TP SCH (16:30)
[2024-05-15] MEDS: METOPROLOL TARTRATE 25 MG TAB PO SCH (17:35)
[2024-05-15] MEDS: PREGABALIN 25 MG CAP PO SCH (17:35)
[2024-05-15] MEDS: HEPARIN SOD (PORCINE) 1000 UNIT/ML SDV IV PRN (17:36)
[2024-05-15] MEDS: ATORVASTATIN 40 MG TAB PO SCH (20:19)
[2024-05-15 20:21] LABS: INFLUENZA A AG NEGATIVE (NEGATIVE)
[2024-05-15 20:22] LABS: CORONAVIRUS COVID-19 AG NEGATIVE (NEGATIVE); INFLUENZA B AG NEGATIVE (NEGATIVE)
[2024-05-15 20:37] LABS: CREATINE KINASE < 7 IU/L (29-168)
[2024-05-15 20:41] LABS: TROPONIN I 0.005 ng/mL (0-0.300)
[2024-05-16] VITALS (10 sets, daily range): BP systolic 96–128; BP diastolic 56–65; PULSE 73–87; RESP 17–20; TEMP 97.3–97.8; O2SAT 96–100
[2024-05-16] MEDS: PANTOPRAZOLE SOD 40 MG TABEC PO SCH (05:55)
[2024-05-16 06:08] LABS: BASOPHILS # (AUTO) 0.1 (0.0-0.1); BASOPHILS % 1.2 % (0.0-1.0); EOSINOPHILS # (AUTO) 0.7 (0.0-0.4); EOSINOPHILS % 8.6 % (0.0-6.0); HEMATOCRIT 29.3 % (34.2-44.1); LYMPHOCYTES # (AUTO) 0.7 (1.0-3.2); LYMPHOCYTES % 8.6 % (18.0-39.1); MEAN CORPUSCULAR HEMOGLOBIN 25.4 pg (28-32); MEAN CORPUSCULAR HGB CONC 27.3 g/dL (31-35); MONOCYTES # (AUTO) 0.6 (0.2-0.8); MONOCYTES % 7.1 % (4.4-11.3); NEUTROPHILS # (AUTO) 6.3 (2.1-6.9); NEUTROPHILS % 73.5 % (38.7-80.0); PLATELET COUNT 342 x10e3/uL (140-360); RED BLOOD COUNT 3.15 x10e6/uL (3.6-5.1); RED CELL DISTRIBUTION WIDTH 18.6 % (11.7-14.4); WHITE BLOOD COUNT 8.58 x10e3/uL (4.8-10.8)
[2024-05-16 06:40] LABS: ALBUMIN 2.1 g/dL (3.5-5.0); ALBUMIN/GLOBULIN RATIO 0.5 (0.8-2.0); ALKALINE PHOSPHATASE 67 IU/L (40-150); BILIRUBIN,TOTAL 0.2 mg/dL (0.2-1.2); BLOOD UREA NITROGEN 21 mg/dL (7-26); BUN/CREATININE RATIO 7 (6-25); CALCIUM 8.8 mg/dL (8.4-10.2); CARBON DIOXIDE 25 mmol/L (22-29); CHLORIDE 101 mmol/L (98-107); CREATININE, SERUM 3.14 mg/dL (0.57-1.11); EST GLOMERULAR FILTRATION RATE 15 ML/MIN (>=60); GLUCOSE 148 mg/dL (74-118); SODIUM 137 mmol/L (136-145); TOTAL PROTEIN 6.1 g/dL (6.5-8.1)
[2024-05-16 06:41] LABS: ALANINE AMINOTRANSFERASE < 6 IU/L (0-55)
[2024-05-16] MEDS: SITAGLIPTIN 100 MG TAB PO SCH (09:08)
[2024-05-16] MEDS: FERROUS SULFATE 325 MG TAB PO SCH (09:09)
[2024-05-16 12:29] LABS: INR 1.01; PROTHROMBIN TIME 13.9 seconds (11.9-14.5)
[2024-05-16] MEDS: BALSAM PERU/CASTOR OIL 60 GM OINT...G. TP SCH (18:51)
[2024-05-17] VITALS (10 sets, daily range): BP systolic 98–121; BP diastolic 48–55; PULSE 78–99; RESP 16–20; TEMP 97.3–97.9; O2SAT 95–100
[2024-05-17 06:13] LABS: BASOPHILS # (AUTO) 0.1 (0.0-0.1); BASOPHILS % 0.9 % (0.0-1.0); EOSINOPHILS # (AUTO) 0.7 (0.0-0.4); EOSINOPHILS % 7.1 % (0.0-6.0); HEMATOCRIT 30.2 % (34.2-44.1); HEMOGLOBIN 8.4 g/dL (12.0-16.0); LYMPHOCYTES # (AUTO) 0.6 (1.0-3.2); LYMPHOCYTES % 6.7 % (18.0-39.1); MEAN CORPUSCULAR HEMOGLOBIN 25.8 pg (28-32); MEAN CORPUSCULAR HGB CONC 27.8 g/dL (31-35); MEAN CORPUSCULAR VOLUME 92.9 fL (81-99); MONOCYTES # (AUTO) 0.7 (0.2-0.8); NEUTROPHILS # (AUTO) 7.2 (2.1-6.9); NEUTROPHILS % 77.4 % (38.7-80.0); PLATELET COUNT 357 x10e3/uL (140-360); RED BLOOD COUNT 3.25 x10e6/uL (3.6-5.1); RED CELL DISTRIBUTION WIDTH 18.5 % (11.7-14.4); WHITE BLOOD COUNT 9.28 x10e3/uL (4.8-10.8)
[2024-05-17 06:45] LABS: ANION GAP 19.7 mmol/L (8-16); CALCIUM 8.9 mg/dL (8.4-10.2); CREATININE, SERUM 4.38 mg/dL (0.57-1.11); POTASSIUM 4.7 mmol/L (3.5-5.1)
[2024-05-17 08:28] LABS: HEPATITIS B SURFACE AB QUANT 3.6
[2024-05-17 08:29] LABS: HEPATITIS B CORE AB TOTAL Positive; HEPATITIS B CORE IGM (P) Negative; HEPATITIS B SURFACE AG (P) Negative
[2024-05-17] MEDS ORDERED: ALBUMIN 25% 12.5GM 0.25 GM/ML BTL IV PRN (10:30)
[2024-05-18] VITALS (10 sets, daily range): BP systolic 94–141; BP diastolic 49–64; PULSE 60–108; RESP 17–22; TEMP 97.3–98.5; O2SAT 94–100
[2024-05-18] MEDS: INSULIN REGULAR, HUMAN 100 UNIT/1 ML SQ SCH (21:33)
[2024-05-19] VITALS (10 sets, daily range): BP systolic 113–133; BP diastolic 45–65; PULSE 81–96; RESP 16–21; TEMP 97.6–98.7; O2SAT 94–100
[2024-05-19] MEDS: SODIUM FERRIC GLUCONATE COMPLX 125 MG in SODIUM CHLORIDE 0.9% 100 ML IV SCH ×2 (09:20→15:04)
[2024-05-19 10:44] LABS: FOLATE 10.7 ng/mL (7.0-15.4)
[2024-05-19] MEDS: FOLIC ACID 1 MG TAB PO ONE (13:53)
[2024-05-20] VITALS (12 sets, daily range): BP systolic 94–124; BP diastolic 49–82; PULSE 86–101; RESP 16–20; TEMP 98–99.2; O2SAT 95–100
[2024-05-20 06:12] LABS: BASOPHILS # (AUTO) 0.1 (0.0-0.1); BASOPHILS % 0.6 % (0.0-1.0); EOSINOPHILS # (AUTO) 0.4 (0.0-0.4); EOSINOPHILS % 2.7 % (0.0-6.0); HEMATOCRIT 29.4 % (34.2-44.1); HEMOGLOBIN 8.2 g/dL (12.0-16.0); LYMPHOCYTES # (AUTO) 0.7 (1.0-3.2); LYMPHOCYTES % 5.2 % (18.0-39.1); MEAN CORPUSCULAR HEMOGLOBIN 25.8 pg (28-32); MEAN CORPUSCULAR HGB CONC 27.9 g/dL (31-35); MEAN CORPUSCULAR VOLUME 92.5 fL (81-99); MONOCYTES # (AUTO) 0.7 (0.2-0.8); MONOCYTES % 5.1 % (4.4-11.3); NEUTROPHILS # (AUTO) 11.3 (2.1-6.9); NEUTROPHILS % 85.3 % (38.7-80.0); PLATELET COUNT 428 x10e3/uL (140-360); RED BLOOD COUNT 3.18 x10e6/uL (3.6-5.1); RED CELL DISTRIBUTION WIDTH 17.8 % (11.7-14.4); WHITE BLOOD COUNT 13.18 x10e3/uL (4.8-10.8)
[2024-05-20 06:49] LABS: ALBUMIN 2.4 g/dL (3.5-5.0); ALBUMIN/GLOBULIN RATIO 0.6 (0.8-2.0); ALKALINE PHOSPHATASE 67 IU/L (40-150); ANION GAP 21.6 mmol/L (8-16); BILIRUBIN,TOTAL 0.2 mg/dL (0.2-1.2); BLOOD UREA NITROGEN 48 mg/dL (7-26); BUN/CREATININE RATIO 9 (6-25); CARBON DIOXIDE 23 mmol/L (22-29); CHLORIDE 96 mmol/L (98-107); CREATININE, SERUM 5.49 mg/dL (0.57-1.11); EST GLOMERULAR FILTRATION RATE 8 ML/MIN (>=60); GLUCOSE 143 mg/dL (74-118); SODIUM 135 mmol/L (136-145); TOTAL PROTEIN 6.7 g/dL (6.5-8.1)
[2024-05-20 06:51] LABS: ALANINE AMINOTRANSFERASE < 6 IU/L (0-55); POTASSIUM 5.6 mmol/L (3.5-5.1)
[2024-05-20] MEDS: SODIUM CHLORIDE 0.9% 1000ML 2,000 ML IV PRN (13:28)
[2024-05-21] VITALS (8 sets, daily range): BP systolic 106–132; BP diastolic 48–65; PULSE 82–110; RESP 18–20; TEMP 97.6–98.8; O2SAT 94–100
[2024-05-21 06:29] LABS: BASOPHILS # (AUTO) 0.1 (0.0-0.1); BASOPHILS % 0.7 % (0.0-1.0); EOSINOPHILS # (AUTO) 0.4 (0.0-0.4); HEMATOCRIT 29.1 % (34.2-44.1); HEMOGLOBIN 8.1 g/dL (12.0-16.0); LYMPHOCYTES # (AUTO) 0.5 (1.0-3.2); LYMPHOCYTES % 4.8 % (18.0-39.1); MEAN CORPUSCULAR HGB CONC 27.8 g/dL (31-35); MEAN CORPUSCULAR VOLUME 93.3 fL (81-99); MONOCYTES # (AUTO) 0.7 (0.2-0.8); MONOCYTES % 6.1 % (4.4-11.3); NEUTROPHILS % 83.7 % (38.7-80.0); PLATELET COUNT 394 x10e3/uL (140-360); RED BLOOD COUNT 3.12 x10e6/uL (3.6-5.1); RED CELL DISTRIBUTION WIDTH 18.1 % (11.7-14.4); WHITE BLOOD COUNT 10.73 x10e3/uL (4.8-10.8)
[2024-05-21 06:42] LABS: ANION GAP 18.4 mmol/L (8-16); CALCIUM 8.7 mg/dL (8.4-10.2); CREATININE, SERUM 3.22 mg/dL (0.57-1.11); POTASSIUM 4.4 mmol/L (3.5-5.1)
[2024-05-21] MEDS: DEXTROSE 50% SYRINGE 50 ML IV PRN (07:00)
[2024-05-21 08:17] LABS: HEPATITIS BE ANTIBODY Non Reactive (Negative)
[2024-05-21] MEDS: SODIUM CHLORIDE 0.9% 250ML 250 ML ONE (12:05)
[2024-05-21] MEDS: DILTIAZEM HCL 5 MG/ML 5 ML VIAL IV ONE (17:29)
[2024-05-21] MEDS: TRIMETHOPRIM/SULFAMETHOXAZOLE 160-800 MG TAB PO SCH (20:26)
[2024-05-21] MEDS: MINOCYCLINE HCL 50 MG CAP PO SCH (20:27)
[2024-05-22] VITALS (9 sets, daily range): BP systolic 117–133; BP diastolic 56–78; PULSE 70–150; RESP 17–20; TEMP 97.8–98.8; O2SAT 95–100
[2024-05-22 07:02] LABS: BASOPHILS # (AUTO) 0.1 (0.0-0.1); BASOPHILS % 0.8 % (0.0-1.0); EOSINOPHILS # (AUTO) 0.6 (0.0-0.4); EOSINOPHILS % 5.8 % (0.0-6.0); HEMATOCRIT 29.2 % (34.2-44.1); HEMOGLOBIN 8.1 g/dL (12.0-16.0); LYMPHOCYTES # (AUTO) 0.6 (1.0-3.2); LYMPHOCYTES % 5.9 % (18.0-39.1); MEAN CORPUSCULAR HEMOGLOBIN 25.6 pg (28-32); MEAN CORPUSCULAR HGB CONC 27.7 g/dL (31-35); MEAN CORPUSCULAR VOLUME 92.1 fL (81-99); MONOCYTES # (AUTO) 0.7 (0.2-0.8); MONOCYTES % 6.7 % (4.4-11.3); NEUTROPHILS # (AUTO) 7.7 (2.1-6.9); NEUTROPHILS % 80.1 % (38.7-80.0); PLATELET COUNT 399 x10e3/uL (140-360); RED BLOOD COUNT 3.17 x10e6/uL (3.6-5.1); RED CELL DISTRIBUTION WIDTH 17.7 % (11.7-14.4); WHITE BLOOD COUNT 9.64 x10e3/uL (4.8-10.8)
[2024-05-22 07:27] LABS: ANION GAP 20.6 mmol/L (8-16); CALCIUM 8.9 mg/dL (8.4-10.2); CREATININE, SERUM 4.34 mg/dL (0.57-1.11); POTASSIUM 4.6 mmol/L (3.5-5.1)
[2024-05-22] MEDS ORDERED: HEPARIN SOD (PORCINE) 1000 UNIT/ML SDV IV PRN ×2 (09:15)
[2024-05-22] MEDS ORDERED: SODIUM CHLORIDE 0.9% 1000ML 2,000 ML IV PRN (09:15)
[2024-05-22] MEDS: ACETAMINOPHEN 325 MG TAB PO PRN (09:29)
[2024-05-22] MEDS: SULBACTAM IV SCH (14:08)
[2024-05-22] MEDS: AMPICILLIN IV SCH (14:08)
[2024-05-22] MEDS: SODIUM CHLORIDE 0.9% IV SCH (14:08)
[2024-05-23] VITALS (7 sets, daily range): BP systolic 99–139; BP diastolic 53–63; PULSE 81–109; RESP 17–18; TEMP 97.4–98.5; O2SAT 99–100
[2024-05-23] MEDS: LINEZOLID 600 MG TAB PO SCH (09:46)
[2024-05-23 11:06] LABS: ANION GAP 19.1 mmol/L (8-16); CALCIUM 9.4 mg/dL (8.4-10.2); CREATININE, SERUM 3.11 mg/dL (0.57-1.11); POTASSIUM 4.1 mmol/L (3.5-5.1)
[2024-05-23] MEDS ORDERED: HEPARIN SOD (PORCINE) 1000 UNIT/ML SDV IV PRN (18:30)
[2024-05-23] MEDS: FUROSEMIDE INJ 10 MG/ML 4 ML VIAL IV ONE (21:21)
[2024-05-24] VITALS (12 sets, daily range): BP systolic 103–139; BP diastolic 47–61; PULSE 77–109; RESP 14–18; TEMP 97.5–98.3; O2SAT 95–100
[2024-05-24 06:27] LABS: BASOPHILS # (AUTO) 0.1 (0.0-0.1); BASOPHILS % 0.9 % (0.0-1.0); EOSINOPHILS # (AUTO) 0.5 (0.0-0.4); EOSINOPHILS % 4.1 % (0.0-6.0); HEMATOCRIT 30.2 % (34.2-44.1); HEMOGLOBIN 8.5 g/dL (12.0-16.0); LYMPHOCYTES # (AUTO) 0.6 (1.0-3.2); LYMPHOCYTES % 4.6 % (18.0-39.1); MEAN CORPUSCULAR HEMOGLOBIN 26.2 pg (28-32); MEAN CORPUSCULAR HGB CONC 28.1 g/dL (31-35); MEAN CORPUSCULAR VOLUME 92.9 fL (81-99); MONOCYTES # (AUTO) 0.6 (0.2-0.8); MONOCYTES % 4.7 % (4.4-11.3); NEUTROPHILS # (AUTO) 10.6 (2.1-6.9); NEUTROPHILS % 85.1 % (38.7-80.0); PLATELET COUNT 429 x10e3/uL (140-360); RED BLOOD COUNT 3.25 x10e6/uL (3.6-5.1); RED CELL DISTRIBUTION WIDTH 17.6 % (11.7-14.4); WHITE BLOOD COUNT 12.46 x10e3/uL (4.8-10.8)
[2024-05-24 06:51] LABS: CALCIUM 9.2 mg/dL (8.4-10.2); CREATININE, SERUM 3.41 mg/dL (0.57-1.11)
[2024-05-24] MEDS ORDERED: FENTANYL CITRATE/PF 100MCG/2 ML INJ ONE (15:46)
[2024-05-24] MEDS ORDERED: PROPOFOL IV EMULSION 10 MG/ML 20 ML VIAL ONE (15:46)
[2024-05-24] MEDS ORDERED: LIDOCAINE HCL 2% LOCAL INJ 5 ML SDV VIAL INJ ONE (15:47)
[2024-05-24] MEDS ORDERED: SEVOFLURANE INHAL SOLN 250 ML PEN BTL ONE (15:47)
[2024-05-24] MEDS ORDERED: METOCLOPRAMIDE HCL 10 MG/2ML VIAL ONE (17:20)
[2024-05-24] MEDS ORDERED: ONDANSETRON HCL INJ 2MG/ML 2ML 2 MG/ML VIAL ONE (17:20)
[2024-05-24] MEDS ORDERED: SUGAMMADEX SODIUM 200 MG/2 ML VIAL IV ONE (17:36)
[2024-05-24] MEDS ORDERED: LABETALOL HCL 20 ML ONE (17:51)
[2024-05-24] MEDS: PROPOFOL IV EMULSION 10MG/ML 100 ML IV PRN (18:36)
[2024-05-24] MEDS: PROPOFOL IV EMULSION 10MG/ML 100 ML ONE (19:00)
[2024-05-24] MEDS: LORAZEPAM INJ 2 MG/ML VIAL IV ONE (19:35)
[2024-05-24] MEDS: DEXTROSE 5% 250ML 250 ML IV ONE (19:38)
[2024-05-24] MEDS: MIDAZOLAM HCL 2 MG/2 ML VIAL ONE (19:39)
[2024-05-24] MEDS ORDERED: LORAZEPAM INJ 2 MG/ML VIAL IV PRN (19:45)
[2024-05-24 20:36] LABS: ABG HCO3 26 mmol/L (22-26); ABG PCO2 47 mmHg (35-45); ABG PH 7.35 (7.35-7.45); ABG PO2 103 mmHg (80-105); ABG TCO2 27
[2024-05-25] VITALS (56 sets, daily range): BP systolic 86–141; BP diastolic 36–85; PULSE 64–119; RESP 15–28; TEMP 96.8–98.7; O2SAT 85–100
[2024-05-25 06:38] LABS: BASOPHILS # (AUTO) 0.1 (0.0-0.1); BASOPHILS % 0.6 % (0.0-1.0); EOSINOPHILS # (AUTO) 0.3 (0.0-0.4); EOSINOPHILS % 3.2 % (0.0-6.0); HEMATOCRIT 27.8 % (34.2-44.1); LYMPHOCYTES # (AUTO) 0.5 (1.0-3.2); LYMPHOCYTES % 5.2 % (18.0-39.1); MEAN CORPUSCULAR HEMOGLOBIN 25.5 pg (28-32); MEAN CORPUSCULAR HGB CONC 28.8 g/dL (31-35); MEAN CORPUSCULAR VOLUME 88.5 fL (81-99); MONOCYTES # (AUTO) 0.5 (0.2-0.8); MONOCYTES % 5.1 % (4.4-11.3); NEUTROPHILS # (AUTO) 8.5 (2.1-6.9); NEUTROPHILS % 85.2 % (38.7-80.0); PLATELET COUNT 400 x10e3/uL (140-360); RED BLOOD COUNT 3.14 x10e6/uL (3.6-5.1); RED CELL DISTRIBUTION WIDTH 18.5 % (11.7-14.4); WHITE BLOOD COUNT 9.94 x10e3/uL (4.8-10.8)
[2024-05-25 07:04] LABS: ANION GAP 20.3 mmol/L (8-16); CALCIUM 8.9 mg/dL (8.4-10.2); CREATININE, SERUM 4.38 mg/dL (0.57-1.11); POTASSIUM 4.3 mmol/L (3.5-5.1)
[2024-05-25 16:23] LABS: ABG PCO2 55 mmHg (35-45); ABG PH 7.36 (7.35-7.45); ABG PO2 90 mmHg (80-105)
[2024-05-25 16:24] LABS: ABG HCO3 31 mmol/L (22-26); ABG TCO2 33
[2024-05-26] VITALS (11 sets, daily range): BP systolic 95–117; BP diastolic 50–89; PULSE 46–97; RESP 18–29; TEMP 98.3; O2SAT 92–100
[2024-05-26 08:01] LABS: ABG HCO3 31 mmol/L (22-26); ABG PCO2 55 mmHg (35-45); ABG PH 7.36 (7.35-7.45); ABG PO2 90 mmHg (80-105); ABG TCO2 33
[2024-05-26 12:23] LABS: ABG HCO3 26 mmol/L (22-26); ABG PCO2 47 mmHg (35-45); ABG PH 7.35 (7.35-7.45); ABG PO2 103 mmHg (80-105); ABG TCO2 27
[2024-05-27] VITALS (9 sets, daily range): BP systolic 96–116; BP diastolic 55–62; PULSE 67–85; RESP 16–22; TEMP 98.1–98.3; O2SAT 0–100
[2024-05-27 05:49] LABS: BASOPHILS # (AUTO) 0.1 (0.0-0.1); BASOPHILS % 0.7 % (0.0-1.0); EOSINOPHILS # (AUTO) 0.6 (0.0-0.4); EOSINOPHILS % 5.1 % (0.0-6.0); HEMATOCRIT 30.8 % (34.2-44.1); HEMOGLOBIN 8.5 g/dL (12.0-16.0); LYMPHOCYTES # (AUTO) 0.6 (1.0-3.2); LYMPHOCYTES % 5.5 % (18.0-39.1); MEAN CORPUSCULAR HEMOGLOBIN 26.1 pg (28-32); MEAN CORPUSCULAR HGB CONC 27.6 g/dL (31-35); MEAN CORPUSCULAR VOLUME 94.5 fL (81-99); MONOCYTES # (AUTO) 0.6 (0.2-0.8); MONOCYTES % 5.5 % (4.4-11.3); NEUTROPHILS # (AUTO) 8.9 (2.1-6.9); NEUTROPHILS % 82.5 % (38.7-80.0); PLATELET COUNT 399 x10e3/uL (140-360); RED BLOOD COUNT 3.26 x10e6/uL (3.6-5.1); RED CELL DISTRIBUTION WIDTH 18.3 % (11.7-14.4); WHITE BLOOD COUNT 10.72 x10e3/uL (4.8-10.8)
[2024-05-27 06:28] LABS: ALANINE AMINOTRANSFERASE < 6 IU/L (0-55); ALBUMIN 2.6 g/dL (3.5-5.0); ALBUMIN/GLOBULIN RATIO 0.7 (0.8-2.0); ALKALINE PHOSPHATASE 60 IU/L (40-150); ANION GAP 18.8 mmol/L (8-16); BILIRUBIN,TOTAL 0.3 mg/dL (0.2-1.2); BLOOD UREA NITROGEN 29 mg/dL (7-26); BUN/CREATININE RATIO 8 (6-25); CALCIUM 8.7 mg/dL (8.4-10.2); CARBON DIOXIDE 26 mmol/L (22-29); CHLORIDE 100 mmol/L (98-107); CREATININE, SERUM 3.76 mg/dL (0.57-1.11); EST GLOMERULAR FILTRATION RATE 12 ML/MIN (>=60); GLUCOSE 110 mg/dL (74-118); POTASSIUM 3.8 mmol/L (3.5-5.1); SODIUM 141 mmol/L (136-145); TOTAL PROTEIN 6.2 g/dL (6.5-8.1)
[2024-05-28] VITALS (11 sets, daily range): BP systolic 79–102; BP diastolic 46–57; PULSE 59–78; RESP 16–22; TEMP 97.4–98.3; O2SAT 94–100
[2024-05-28 05:33] LABS: ANION GAP 21.6 mmol/L (8-16); CALCIUM 9.2 mg/dL (8.4-10.2); CREATININE, SERUM 4.79 mg/dL (0.57-1.11); POTASSIUM 4.6 mmol/L (3.5-5.1)
[2024-05-28] MEDS: ALBUTEROL/IPRATROPIUM 3 ML NEB NEB PRN (11:00)
[2024-05-29 04:00] VITALS: BP 95/55; PULSE 62; RESP 18; TEMP 98.1; O2SAT 100
[2024-05-29 06:29] VITALS: PULSE 74; RESP 22; O2SAT 95
[2024-05-29 08:27] VITALS: BP 107/61; PULSE 71; RESP 19; TEMP 97.9; O2SAT 96
[2024-05-29 08:57] LABS: ANION GAP 19.8 mmol/L (8-16); CALCIUM 9.4 mg/dL (8.4-10.2); CREATININE, SERUM 5.63 mg/dL (0.57-1.11); POTASSIUM 4.8 mmol/L (3.5-5.1)
[2024-05-29 09:00] VITALS: BP 107/61; PULSE 71; RESP 19; TEMP 97.9; O2SAT 96
[2024-05-29] MEDS ORDERED: HEPARIN SOD (PORCINE) 1000 UNIT/ML SDV IV PRN ×2 (12:00)
[2024-05-29 12:20] VITALS: BP 125/59; PULSE 81; RESP 18; TEMP 98; O2SAT 100
== END 2024-05-29 15:12 | disposition home health service (06) | DRG 698 ==
LOC: ER 20:52 → ERHOLD 05-15 01:52 → MED/SURG3 05-15 03:14 → ICU 05-24 18:02 → MED/SURG 05-26 17:26
PROVIDERS: ADMIT Internal Medicine; ATTEND Internal Medicine
PROC: 5A1D70Z Performance of Urinary Filtration, Intermittent, Less than 6 Hours Per Day (ICD-10-PCS; principal; 2024-05-15)
PROC: 0TP98DZ Removal of Intraluminal Device from Ureter, Via Natural or Artificial Opening Endoscopic (ICD-10-PCS; 2024-05-24)
PROC: 0TP98DZ Removal of Intraluminal Device from Ureter, Via Natural or Artificial Opening Endoscopic (ICD-10-PCS; 2024-05-24)
PROC: 0UJH7ZZ Inspection of Vagina and Cul-de-sac, Via Natural or Artificial Opening (ICD-10-PCS; 2024-05-24)
PROC: BT131ZZ Fluoroscopy of Bilateral Kidneys using Low Osmolar Contrast (ICD-10-PCS; 2024-05-24)
PROC: BT161ZZ Fluoroscopy of Right Ureter using Low Osmolar Contrast (ICD-10-PCS; 2024-05-24)
PROC: BT171ZZ Fluoroscopy of Left Ureter using Low Osmolar Contrast (ICD-10-PCS; 2024-05-24)
PROC: 4A133R1 Monitoring of Arterial Saturation, Peripheral, Percutaneous Approach (ICD-10-PCS; 2024-05-24 16:41)
DX: T83.022A Displacement of nephrostomy catheter, initial encounter (principal); J96.90 Respiratory failure, unspecified, unspecified whether with hypoxia or hypercapnia; L89.153 Pressure ulcer of sacral region, stage 3; N18.6 End stage renal disease; K68.19 Other retroperitoneal abscess; J90 Pleural effusion, not elsewhere classified; I12.0 Hypertensive chronic kidney disease with stage 5 chronic kidney disease or end stage renal disease; N13.6 Pyonephrosis; N12 Tubulo-interstitial nephritis, not specified as acute or chronic; I69.351 Hemiplegia and hemiparesis following cerebral infarction affecting right dominant side; Z16.24 Resistance to multiple antibiotics; L89.891 Pressure ulcer of other site, stage 1; L89.896 Pressure-induced deep tissue damage of other site; D63.1 Anemia in chronic kidney disease; Z99.2 Dependence on renal dialysis; Z99.81 Dependence on supplemental oxygen; I48.0 Paroxysmal atrial fibrillation; R31.9 Hematuria, unspecified; R53.81 Other malaise; E11.22 Type 2 diabetes mellitus with diabetic chronic kidney disease; E78.5 Hyperlipidemia, unspecified; E05.90 Thyrotoxicosis, unspecified without thyrotoxic crisis or storm; E11.65 Type 2 diabetes mellitus with hyperglycemia; N13.9 Obstructive and reflux uropathy, unspecified; Z11.52 Encounter for screening for COVID-19; B96.1 Klebsiella pneumoniae [K. pneumoniae] as the cause of diseases classified elsewhere; B96.83 Acinetobacter baumannii as the cause of diseases classified elsewhere; E66.9 Obesity, unspecified; Z68.36 Body mass index [BMI] 36.0-36.9, adult; R25.1 Tremor, unspecified; N95.2 Postmenopausal atrophic vaginitis; N81.10 Cystocele, unspecified; Y83.3 Surgical operation with formation of external stoma as the cause of abnormal reaction of the patient, or of later complication, without mention of misadventure at the time of the procedure; Z79.01 Long term (current) use of anticoagulants; Z79.84 Long term (current) use of oral hypoglycemic drugs; Z93.3 Colostomy status; Z85.048 Personal history of other malignant neoplasm of rectum, rectosigmoid junction, and anus; Z92.3 Personal history of irradiation; Z92.21 Personal history of antineoplastic chemotherapy; Z90.49 Acquired absence of other specified parts of digestive tract; Z88.8 Allergy status to other drugs, medicaments and biological substances
CPT/HCPCS: 36415; 36600; 71045; 71046; 74176; 74420; 74470; 76770; 80048; 80053; 81001; 82550; 82607; 82728; 82746; 82805; 82948; 83540; 83690; 84466; 84484; 85025; 85379; 85610; 86704; 86705; 86706; 86707; 87086; 87186; 87340; 90962; 93005; 93306; 94002; 94003; 94640; 94799; 99252; 99284; C1769; J0295; J1644; J1940; J2003; J2060; J2250; J2405; J2543; J2765; J2916; J7030; J7050; J7799

== ENCOUNTER 2024-06-01 15:39 | Inpatient (IN) | payer MEDICARE, OTHER ==
[2024-06-01] VITALS (12 sets, daily range): BP systolic 104–124; BP diastolic 42–59; PULSE 71–106; RESP 16–34; TEMP 97.2–98; O2SAT 98–100
[~2024-06-01] VITALS: Ht 157.5 cm; Wt 99.4 kg
[2024-06-01 16:44] LABS: BASOPHILS % 0.3 % (0.0-1.0); EOSINOPHILS # (AUTO) 0.1 (0.0-0.4); EOSINOPHILS % 0.9 % (0.0-6.0); HEMATOCRIT 37.8 % (34.2-44.1); HEMOGLOBIN 9.8 g/dL (12.0-16.0); LYMPHOCYTES # (AUTO) 0.2 (1.0-3.2); LYMPHOCYTES % 1.7 % (18.0-39.1); MEAN CORPUSCULAR HEMOGLOBIN 26.3 pg (28-32); MEAN CORPUSCULAR HGB CONC 25.9 g/dL (31-35); MEAN CORPUSCULAR VOLUME 101.3 fL (81-99); MONOCYTES # (AUTO) 0.3 (0.2-0.8); MONOCYTES % 2.4 % (4.4-11.3); NEUTROPHILS # (AUTO) 11.3 (2.1-6.9); PLATELET COUNT 339 x10e3/uL (140-360); RED BLOOD COUNT 3.73 x10e6/uL (3.6-5.1); RED CELL DISTRIBUTION WIDTH 18.6 % (11.7-14.4); WHITE BLOOD COUNT 12.04 x10e3/uL (4.8-10.8)
[2024-06-01 17:19] LABS: ALBUMIN 3.2 g/dL (3.5-5.0); ALBUMIN/GLOBULIN RATIO 0.7 (0.8-2.0); ANION GAP 21.4 mmol/L (8-16); BILIRUBIN,TOTAL 0.3 mg/dL (0.2-1.2); CALCIUM 9.4 mg/dL (8.4-10.2); CREATININE, SERUM 2.86 mg/dL (0.57-1.11); POTASSIUM 4.4 mmol/L (3.5-5.1); TOTAL PROTEIN 7.5 g/dL (6.5-8.1)
[2024-06-01 17:23] LABS: ANISOCYTOSIS SLIGHT; LYMPHOCYTES % (MANUAL) 4 % (19-48); MONOCYTES % (MANUAL) 1 % (3.4-9.0); NEUTROPHILS % (MANUAL) 95 % (40-74); PLATELET ESTIMATE ADEQUATE; PLATELET MORPHOLOGY COMMENT NORMAL
[2024-06-01 17:24] LABS: TROPONIN I 0.005 ng/mL (0-0.300)
[2024-06-01 18:30] LABS: INFLUENZA A AG NEGATIVE (NEGATIVE); INFLUENZA B AG NEGATIVE (NEGATIVE)
[2024-06-01 18:31] LABS: CORONAVIRUS COVID-19 AG NEGATIVE (NEGATIVE)
[2024-06-01] MEDS ORDERED: ONDANSETRON HCL INJ 2MG/ML 2ML 2 MG/ML VIAL IV PRN (18:45)
[2024-06-01] MEDS ORDERED: SODIUM CHLORIDE FLUSH 10 ML SYR INJ PRN (18:45)
[2024-06-01] MEDS ORDERED: SODIUM CHLORIDE 0.9% 1000ML 1,000 ML ONE (20:13)
[2024-06-01] MEDS: MIDODRINE 2.5 MG TAB PO ONE (20:45)
[2024-06-01] MEDS: INSULIN REGULAR, HUMAN 100 UNIT/1 ML SQ SCH (21:00)
[2024-06-01] MEDS ORDERED: ALBUMIN 25% 25GM 100ML 0.25 GM/ML BTL IV ONE ×2 (21:45)
[2024-06-01] MEDS: ALBUMIN 25% 25GM 100ML 200 ML ONE (23:22)
[2024-06-01] MEDS: ALBUMIN 25% 12.5GM 50ML 50 ML IV ONE (23:23)
[2024-06-02] VITALS (30 sets, daily range): BP systolic 98–137; BP diastolic 38–92; PULSE 64–108; RESP 16–20; TEMP 96.7–98; O2SAT 95–100
[2024-06-02] MEDS: HEPARIN SOD (PORCINE) 1000 UNIT/ML SDV IV ONE (03:11)
[2024-06-02] MEDS: HEPARIN SOD (PORCINE) 1000 UNIT/ML SDV ONE (03:12)
[2024-06-02 07:07] LABS: BASOPHILS % 0.4 % (0.0-1.0); EOSINOPHILS # (AUTO) 0.2 (0.0-0.4); EOSINOPHILS % 2.1 % (0.0-6.0); HEMATOCRIT 31.3 % (34.2-44.1); HEMOGLOBIN 8.8 g/dL (12.0-16.0); LYMPHOCYTES # (AUTO) 0.3 (1.0-3.2); LYMPHOCYTES % 3.4 % (18.0-39.1); MEAN CORPUSCULAR HEMOGLOBIN 26.3 pg (28-32); MEAN CORPUSCULAR HGB CONC 28.1 g/dL (31-35); MEAN CORPUSCULAR VOLUME 93.4 fL (81-99); MONOCYTES # (AUTO) 0.5 (0.2-0.8); MONOCYTES % 4.9 % (4.4-11.3); NEUTROPHILS # (AUTO) 8.3 (2.1-6.9); NEUTROPHILS % 88.6 % (38.7-80.0); PLATELET COUNT 315 x10e3/uL (140-360); RED BLOOD COUNT 3.35 x10e6/uL (3.6-5.1); RED CELL DISTRIBUTION WIDTH 18.8 % (11.7-14.4); WHITE BLOOD COUNT 9.37 x10e3/uL (4.8-10.8)
[2024-06-02] MEDS: DEXTROSE 50% SYRINGE 50 ML IV PRN (07:08)
[2024-06-02 07:51] LABS: ALBUMIN 3.3 g/dL (3.5-5.0); ALBUMIN/GLOBULIN RATIO 0.9 (0.8-2.0); ALKALINE PHOSPHATASE 65 IU/L (40-150); ANION GAP 18.4 mmol/L (8-16); BILIRUBIN,TOTAL 0.3 mg/dL (0.2-1.2); BLOOD UREA NITROGEN 35 mg/dL (7-26); BUN/CREATININE RATIO 11 (6-25); CALCIUM 9.1 mg/dL (8.4-10.2); CARBON DIOXIDE 25 mmol/L (22-29); CHLORIDE 97 mmol/L (98-107); EST GLOMERULAR FILTRATION RATE 15 ML/MIN (>=60); SODIUM 137 mmol/L (136-145)
[2024-06-02 07:52] LABS: POTASSIUM 3.4 mmol/L (3.5-5.1)
[2024-06-02 07:53] LABS: ALANINE AMINOTRANSFERASE < 6 IU/L (0-55); GLUCOSE 20 mg/dL (74-118)
[2024-06-02 08:16] LABS: TROPONIN I 0.079 ng/mL (0-0.300)
[2024-06-02] MEDS: POTASSIUM CHLORIDE 10MEQ EA PO ONE (11:25)
[2024-06-02] MEDS: DEXTROSE 5% 1,000 ML IV SCH (11:25)
[2024-06-02] MEDS: POTASSIUM CHLORIDE 20 MEQ TAB CR PO STA (14:02)
[2024-06-03] VITALS (59 sets, daily range): BP systolic 63–141; BP diastolic 42–116; PULSE 82–125; RESP 18–34; TEMP 97.6–98.3; O2SAT 96–100
[2024-06-03 07:21] LABS: ANION GAP 17.5 mmol/L (8-16); CALCIUM 8.5 mg/dL (8.4-10.2); CREATININE, SERUM 3.73 mg/dL (0.57-1.11); POTASSIUM 3.5 mmol/L (3.5-5.1)
[2024-06-03 08:01] LABS: TROPONIN I 0.024 ng/mL (0-0.300)
[2024-06-03] MEDS: DILTIAZEM HCL 5 MG/ML 5 ML VIAL IV ONE (08:55)
[2024-06-03 10:39] LABS: TROPONIN I 0.016 ng/mL (0-0.300)
[2024-06-03] MEDS: AMIODARONE 900MG 900 MG in Premix Bag 1 BAG IV SCH (10:47)
[2024-06-03] MEDS: AMIODARONE HCL 150 MG/100 ML BAG IV ONE (10:48)
[2024-06-03] MEDS: HEPARIN SOD (PORCINE) 1000 UNIT/ML SDV ONE (13:42)
[2024-06-03] MEDS: SODIUM CHLORIDE 0.9% 1000ML 0 ML ONE (13:42)
[2024-06-03] MEDS ORDERED: SODIUM CHLORIDE 0.9% 1000ML 2,000 ML IV PRN (14:30)
[2024-06-03] MEDS ORDERED: HEPARIN SOD (PORCINE) 1000 UNIT/ML SDV IV PRN ×4 (14:30→14:45)
[2024-06-03] MEDS: ATORVASTATIN 40 MG TAB PO SCH (20:28)
[2024-06-04] VITALS (31 sets, daily range): BP systolic 110–138; BP diastolic 49–102; PULSE 62–90; RESP 20–34; TEMP 97.5–98.2; O2SAT 100
[2024-06-04 07:05] LABS: BASOPHILS % 0.4 % (0.0-1.0); EOSINOPHILS # (AUTO) 0.8 (0.0-0.4); EOSINOPHILS % 7.6 % (0.0-6.0); HEMATOCRIT 30.1 % (34.2-44.1); HEMOGLOBIN 8.5 g/dL (12.0-16.0); LYMPHOCYTES # (AUTO) 0.4 (1.0-3.2); LYMPHOCYTES % 3.9 % (18.0-39.1); MEAN CORPUSCULAR HEMOGLOBIN 26.2 pg (28-32); MEAN CORPUSCULAR HGB CONC 28.2 g/dL (31-35); MEAN CORPUSCULAR VOLUME 92.6 fL (81-99); MONOCYTES # (AUTO) 0.9 (0.2-0.8); MONOCYTES % 8.6 % (4.4-11.3); NEUTROPHILS # (AUTO) 7.8 (2.1-6.9); NEUTROPHILS % 78.3 % (38.7-80.0); PLATELET COUNT 196 x10e3/uL (140-360); RED BLOOD COUNT 3.25 x10e6/uL (3.6-5.1); RED CELL DISTRIBUTION WIDTH 18.7 % (11.7-14.4); WHITE BLOOD COUNT 9.94 x10e3/uL (4.8-10.8)
[2024-06-04 07:33] LABS: ANION GAP 14.7 mmol/L (8-16); CALCIUM 8.3 mg/dL (8.4-10.2); CREATININE, SERUM 2.21 mg/dL (0.57-1.11); POTASSIUM 3.7 mmol/L (3.5-5.1)
[2024-06-04] MEDS: GLIMEPIRIDE 2 MG TAB PO SCH (08:00)
[2024-06-04] MEDS: PANTOPRAZOLE SOD 40 MG TABEC PO SCH (08:27)
[2024-06-04] MEDS: SITAGLIPTIN 100 MG TAB PO SCH (08:27)
[2024-06-04] MEDS: FERROUS SULFATE 325 MG TAB PO SCH (08:27)
[2024-06-04] MEDS: PREGABALIN 50 MG CAP PO SCH (08:27)
[2024-06-04] MEDS: APIXABAN 5 MG TABLET PO SCH (08:27)
[2024-06-04] MEDS: METOPROLOL TARTRATE 25 MG TAB PO SCH (08:29)
[2024-06-04] MEDS: BALSAM PERU/CASTOR OIL 60 GM OINT...G. TP SCH (08:29)
[2024-06-04 11:20] LABS: HEPATITIS B SURFACE AB QUANT <3.5
[2024-06-04 11:21] LABS: HEPATITIS B CORE AB TOTAL Positive; HEPATITIS B SURFACE AG (P) Negative
[2024-06-04] MEDS: AMIODARONE HCL 200 MG TAB PO SCH (16:23)
[2024-06-05] VITALS (8 sets, daily range): BP systolic 92–114; BP diastolic 41–60; PULSE 63–100; RESP 16–22; TEMP 97.3–98.3; O2SAT 98–100
[2024-06-05 06:26] LABS: ANION GAP 13.1 mmol/L (8-16); CALCIUM 8.5 mg/dL (8.4-10.2); CREATININE, SERUM 2.89 mg/dL (0.57-1.11); POTASSIUM 4.1 mmol/L (3.5-5.1)
[2024-06-05] MEDS ORDERED: SODIUM CHLORIDE 0.9% 1000ML 2,000 ML IV PRN (09:45)
[2024-06-05] MEDS ORDERED: HEPARIN SOD (PORCINE) 1000 UNIT/ML SDV IV PRN (09:45)
[2024-06-05] MEDS ORDERED: ALBUMIN 25% 12.5GM 0.25 GM/ML BTL IV PRN (10:45)
[2024-06-05] MEDS ORDERED: MIDODRINE HCL 5 MG TABLET PO PRN (19:30)
[2024-06-05] MEDS: BALSAM PERU/CASTOR OIL 60 GM OINT...G. TP SCH (21:58)
[2024-06-06 04:09] VITALS: BP 98/45; PULSE 83; RESP 16; TEMP 97.7; O2SAT 100
[2024-06-06 08:59] VITALS: BP 95/59; PULSE 99; RESP 20; TEMP 97.6; O2SAT 97
[2024-06-06] MEDS ORDERED: AMIODARONE HCL200 MG PO (11:45)
[2024-06-06] MEDS ORDERED: MIDODRINE HCL5 MG PO (11:45)
[2024-06-06 11:57] VITALS: BP 121/59; PULSE 88; RESP 20; TEMP 97.5; O2SAT 98
[2024-06-06 16:58] VITALS: BP 111/54; PULSE 94; RESP 20; TEMP 97.8; O2SAT 94
[2024-06-06 17:00] VITALS: BP 111/54; PULSE 94
== END 2024-06-06 16:06 | disposition home or self-care (01) | DRG 640 ==
LOC: ER 16:38 → ERHOLD 18:34 → ICU 21:11 → MED/SURG2 06-04 23:04
PROVIDERS: ADMIT Internal Medicine; ATTEND Internal Medicine
PROC: 5A1D70Z Performance of Urinary Filtration, Intermittent, Less than 6 Hours Per Day (ICD-10-PCS; principal; 2024-06-01)
DX: E87.70 Fluid overload, unspecified (principal); J96.21 Acute and chronic respiratory failure with hypoxia; N18.6 End stage renal disease; I12.0 Hypertensive chronic kidney disease with stage 5 chronic kidney disease or end stage renal disease; J90 Pleural effusion, not elsewhere classified; I69.351 Hemiplegia and hemiparesis following cerebral infarction affecting right dominant side; N13.8 Other obstructive and reflux uropathy; I48.19 Other persistent atrial fibrillation; Z68.41 Body mass index [BMI] 40.0-44.9, adult; E11.22 Type 2 diabetes mellitus with diabetic chronic kidney disease; Z99.81 Dependence on supplemental oxygen; Z99.2 Dependence on renal dialysis; E87.6 Hypokalemia; E11.649 Type 2 diabetes mellitus with hypoglycemia without coma; E03.9 Hypothyroidism, unspecified; J44.9 Chronic obstructive pulmonary disease, unspecified; E66.9 Obesity, unspecified; Z11.52 Encounter for screening for COVID-19; Z79.01 Long term (current) use of anticoagulants; Z79.84 Long term (current) use of oral hypoglycemic drugs; Z74.01 Bed confinement status; Z85.048 Personal history of other malignant neoplasm of rectum, rectosigmoid junction, and anus; Z92.3 Personal history of irradiation; Z92.21 Personal history of antineoplastic chemotherapy; Z90.49 Acquired absence of other specified parts of digestive tract; Z90.710 Acquired absence of both cervix and uterus; Z88.8 Allergy status to other drugs, medicaments and biological substances
CPT/HCPCS: 36415; 71045; 80048; 80053; 82550; 82947; 82948; 83735; 83880; 84484; 85025; 86704; 86706; 87340; 93005; 94660; 94799; 99252; 99284; J1644; J7030; J7070; J7799; P9047

== ENCOUNTER 2024-06-09 19:27 | Inpatient (IN) | payer MEDICARE, OTHER ==
[~2024-06-09] VITALS: Ht 157.5 cm; Wt 97.5 kg
[~2024-06-09 19:27] MED LIST changes: +AMIODARONE HCL200 MG PO; +MIDODRINE HCL5 MG PO
[2024-06-09 19:31] VITALS: TEMP 98.1
[2024-06-09 19:58] LABS: ABG HCO3 32 mmol/L (22-26); ABG PCO2 75 mmHg (35-45); ABG PH 7.24 (7.35-7.45); ABG PO2 155 mmHg (80-105); ABG TCO2 34
[2024-06-09 20:04] VITALS: PULSE 83; RESP 34; O2SAT 100
[2024-06-09 20:17] LABS: ALBUMIN 3.1 g/dL (3.5-5.0); ALBUMIN/GLOBULIN RATIO 0.8 (0.8-2.0); ANION GAP 19.6 mmol/L (8-16); BILIRUBIN,TOTAL 0.4 mg/dL (0.2-1.2); CALCIUM 9.1 mg/dL (8.4-10.2); CREATININE, SERUM 3.26 mg/dL (0.57-1.11); POTASSIUM 4.6 mmol/L (3.5-5.1)
[2024-06-09 20:23] LABS: TROPONIN I 0.014 ng/mL (0-0.300)
[2024-06-09 20:25] LABS: BASOPHILS # (AUTO) 0.1 (0.0-0.1); BASOPHILS % 0.8 % (0.0-1.0); EOSINOPHILS # (AUTO) 0.2 (0.0-0.4); EOSINOPHILS % 1.9 % (0.0-6.0); HEMATOCRIT 29.8 % (34.2-44.1); HEMOGLOBIN 8.1 g/dL (12.0-16.0); LYMPHOCYTES # (AUTO) 0.4 (1.0-3.2); LYMPHOCYTES % 3.6 % (18.0-39.1); MEAN CORPUSCULAR HEMOGLOBIN 25.6 pg (28-32); MEAN CORPUSCULAR HGB CONC 27.2 g/dL (31-35); MONOCYTES # (AUTO) 0.8 (0.2-0.8); MONOCYTES % 7.2 % (4.4-11.3); PLATELET COUNT 385 x10e3/uL (140-360); RED BLOOD COUNT 3.17 x10e6/uL (3.6-5.1); RED CELL DISTRIBUTION WIDTH 18.5 % (11.7-14.4)
[2024-06-09 21:00] VITALS: PULSE 72; RESP 26
[2024-06-09] MEDS: MIDODRINE HCL 5 MG TABLET ONE (21:50)
[2024-06-09] MEDS: MIDODRINE 2.5 MG TAB PO ONE (21:57)
[2024-06-09] MEDS ORDERED: SODIUM CHLORIDE FLUSH 10 ML SYR INJ PRN (22:15)
[2024-06-09] MEDS: ALBUTEROL/IPRATROPIUM 3 ML NEB NEB SCH (23:00)
[2024-06-10] VITALS (83 sets, daily range): BP systolic 67–146; BP diastolic 39–104; PULSE 67–120; RESP 17–46; TEMP 97.1–99.8; O2SAT 91–100
[2024-06-10 06:34] LABS: BASOPHILS # (AUTO) 0.1 (0.0-0.1); BASOPHILS % 0.5 % (0.0-1.0); EOSINOPHILS # (AUTO) 0.3 (0.0-0.4); EOSINOPHILS % 2.7 % (0.0-6.0); LYMPHOCYTES # (AUTO) 0.3 (1.0-3.2); LYMPHOCYTES % 2.5 % (18.0-39.1); MEAN CORPUSCULAR HEMOGLOBIN 26.1 pg (28-32); MEAN CORPUSCULAR HGB CONC 27.6 g/dL (31-35); MEAN CORPUSCULAR VOLUME 94.5 fL (81-99); MONOCYTES # (AUTO) 0.8 (0.2-0.8); MONOCYTES % 6.9 % (4.4-11.3); NEUTROPHILS # (AUTO) 9.8 (2.1-6.9); NEUTROPHILS % 85.9 % (38.7-80.0); PLATELET COUNT 343 x10e3/uL (140-360); RED BLOOD COUNT 3.07 x10e6/uL (3.6-5.1); RED CELL DISTRIBUTION WIDTH 18.2 % (11.7-14.4); WHITE BLOOD COUNT 11.42 x10e3/uL (4.8-10.8)
[2024-06-10 06:53] LABS: ALBUMIN/GLOBULIN RATIO 0.8 (0.8-2.0); ANION GAP 21.3 mmol/L (8-16); BILIRUBIN,TOTAL 0.3 mg/dL (0.2-1.2); CALCIUM 9.4 mg/dL (8.4-10.2); CREATININE, SERUM 3.5 mg/dL (0.57-1.11); POTASSIUM 4.3 mmol/L (3.5-5.1); TOTAL PROTEIN 6.8 g/dL (6.5-8.1)
[2024-06-10 07:13] LABS: TROPONIN I 0.008 ng/mL (0-0.300)
[2024-06-10] MEDS: MIDODRINE 2.5 MG TAB PO SCH (07:31)
[2024-06-10] MEDS: SODIUM CHLORIDE 0.9% 1000ML 2,000 ML ONE (08:27)
[2024-06-10] MEDS: ALBUMIN 25% 12.5GM 50ML 0 ML IV ONE (08:27)
[2024-06-10] MEDS: HEPARIN SOD (PORCINE) 1000 UNIT/ML SDV ONE ×2 (08:28→11:27)
[2024-06-10] MEDS: METOPROLOL TARTRATE INJ 1 MG/ML VIAL IV ONE (11:27)
[2024-06-10] MEDS: AMIODARONE HCL 200 MG TAB PO SCH (12:00)
[2024-06-10] MEDS: PANTOPRAZOLE SOD 40 MG TABEC PO SCH (12:00)
[2024-06-10] MEDS: DEXMEDETOMIDINE 400MCG/NS100ML 100 ML IV PRN (12:34)
[2024-06-10] MEDS ORDERED: SODIUM CHLORIDE 0.9% 1000ML 2,000 ML IV PRN (12:45)
[2024-06-10] MEDS ORDERED: ALBUMIN 25% 12.5GM 0.25 GM/ML BTL IV PRN (12:45)
[2024-06-10] MEDS ORDERED: HEPARIN SOD (PORCINE) 1000 UNIT/ML SDV IV PRN ×2 (12:45)
[2024-06-10] MEDS ORDERED: DEXTROSE 50% SYRINGE 50 ML IV PRN (13:00)
[2024-06-10] MEDS: INSULIN REGULAR, HUMAN 100 UNIT/1 ML SQ SCH (16:30)
[2024-06-10] MEDS ORDERED: INSULIN REGULAR, HUMAN 100 UNIT/1 ML SQ SCH (16:30)
[2024-06-10] MEDS: METOPROLOL TARTRATE 25 MG TAB PO SCH (16:40)
[2024-06-10] MEDS: PREGABALIN 25 MG CAP PO SCH (16:40)
[2024-06-10 17:11] LABS: TROPONIN I 0.01 ng/mL (0-0.300)
[2024-06-10] MEDS: DEXTROSE 50% SYRINGE 50 ML IV PRN (20:02)
[2024-06-10] MEDS: ATORVASTATIN 40 MG TAB PO SCH (20:02)
[2024-06-10] MEDS: VASOPRESSIN 60 UNIT in DEXTROSE 5% 50ML 57 ML IV SCH (21:37)
[2024-06-11] VITALS (91 sets, daily range): BP systolic 82–144; BP diastolic 43–118; PULSE 57–102; RESP 15–38; TEMP 98–98.9; O2SAT 98–100
[2024-06-11 02:07] LABS: HEPATITIS B CORE AB TOTAL Positive (Negative)
[2024-06-11 07:30] LABS: BASOPHILS # (AUTO) 0.1 (0.0-0.1); BASOPHILS % 0.5 % (0.0-1.0); EOSINOPHILS # (AUTO) 0.1 (0.0-0.4); EOSINOPHILS % 1.3 % (0.0-6.0); HEMATOCRIT 27.2 % (34.2-44.1); HEMOGLOBIN 7.4 g/dL (12.0-16.0); LYMPHOCYTES # (AUTO) 0.2 (1.0-3.2); LYMPHOCYTES % 2.2 % (18.0-39.1); MEAN CORPUSCULAR HEMOGLOBIN 26.2 pg (28-32); MEAN CORPUSCULAR HGB CONC 27.2 g/dL (31-35); MEAN CORPUSCULAR VOLUME 96.5 fL (81-99); MONOCYTES # (AUTO) 0.7 (0.2-0.8); MONOCYTES % 6.5 % (4.4-11.3); NEUTROPHILS # (AUTO) 9.1 (2.1-6.9); NEUTROPHILS % 88.4 % (38.7-80.0); PLATELET COUNT 319 x10e3/uL (140-360); RED BLOOD COUNT 2.82 x10e6/uL (3.6-5.1); RED CELL DISTRIBUTION WIDTH 18.4 % (11.7-14.4); WHITE BLOOD COUNT 10.27 x10e3/uL (4.8-10.8)
[2024-06-11 08:00] LABS: ANION GAP 18.3 mmol/L (8-16); CALCIUM 9.3 mg/dL (8.4-10.2); CREATININE, SERUM 2.33 mg/dL (0.57-1.11); POTASSIUM 4.3 mmol/L (3.5-5.1)
[2024-06-11] MEDS: MIDODRINE HCL 5 MG TABLET PO SCH (08:00)
[2024-06-11 08:08] LABS: ABG PH 7.22 (7.35-7.45)
[2024-06-11 08:09] LABS: ABG HCO3 31 mmol/L (22-26); ABG PCO2 76 mmHg (35-45); ABG PO2 109 mmHg (80-105); ABG TCO2 33
[2024-06-11] MEDS: METHYLPREDNISOLONE SOD SUCC 40 MG/ML VIAL 1ML IV ONE (08:10)
[2024-06-11] MEDS: FERROUS SULFATE 325 MG TAB PO SCH (08:24)
[2024-06-11 08:56] LABS: HEPATITIS B CORE IGM (P) Negative (Negative); HEPATITIS B SURFACE AB QUANT <3.5 mIU/mL (Immunity>10)
[2024-06-11 08:57] LABS: HEPATITIS B SURFACE AG (P) Negative (Negative)
[2024-06-11 11:10] LABS: INR 1.4; PROTHROMBIN TIME 17.9 seconds (11.9-14.5)
[2024-06-11] MEDS: NOREPINEPHRINE 8 MG/D5W 250 ML 250 ML ONE (11:17)
[2024-06-11] MEDS: GUAIFENESIN 600MG/DEXTROMETHORPHAN 30MG TABSR PO SCH (12:00)
[2024-06-11 12:51] LABS: ABG PH 7.21 (7.35-7.45)
[2024-06-11 12:52] LABS: ABG HCO3 29 mmol/L (22-26); ABG PCO2 73 mmHg (35-45); ABG PO2 118 mmHg (80-105); ABG TCO2 31
[2024-06-11 12:55] LABS: BODY FLUID APPEARANCE CLOUDY; BODY FLUID COLOR STRAW; BODY FLUID TYPE PLEURAL; RBC,BODY FLUID 4000 cells/uL; WBC,BODY FLUID 627 cells/uL
[2024-06-11 13:22] LABS: LYMPHOCYTES,BODY FLUID 56 %; MONO/MACROPHG,BODY FLUID 38 %; NEUTROPHILS,BODY FLUID 5 %; OTHER CELLS,BODY FLUID 1 %; TOTAL CELLS COUNTED (DIFF) 100
[2024-06-11] MEDS ORDERED: HEPARIN SOD (PORCINE) 1000 UNIT/ML SDV IV PRN (14:45)
[2024-06-11] MEDS: SODIUM CHLORIDE 0.9% 1000ML 1,000 ML ONE (15:11)
[2024-06-11] MEDS: MUPIROCIN 2% OINT 22 GM TUBE TOP SCH (17:23)
[2024-06-11] MEDS: INSULIN REGULAR, HUMAN 100 UNIT/1 ML SQ SCH (18:25)
[2024-06-11] MEDS: NOREPINEPHRINE 8 MG/D5W 250 ML 250 ML IV SCH (18:34)
[2024-06-11] MEDS: ALBUTEROL/IPRATROPIUM 3 ML NEB NEB PRN (19:27)
[2024-06-12] VITALS (52 sets, daily range): BP systolic 65–145; BP diastolic 31–97; PULSE 36–102; RESP 16–30; TEMP 97.7–98.6; O2SAT 98–100
[2024-06-12 06:54] LABS: BASOPHILS % 0.1 % (0.0-1.0); HEMATOCRIT 26.5 % (34.2-44.1); HEMOGLOBIN 7.3 g/dL (12.0-16.0); LYMPHOCYTES # (AUTO) 0.3 (1.0-3.2); LYMPHOCYTES % 3.5 % (18.0-39.1); MEAN CORPUSCULAR HEMOGLOBIN 26.4 pg (28-32); MEAN CORPUSCULAR HGB CONC 27.5 g/dL (31-35); MEAN CORPUSCULAR VOLUME 95.7 fL (81-99); MONOCYTES # (AUTO) 0.2 (0.2-0.8); MONOCYTES % 2.9 % (4.4-11.3); NEUTROPHILS # (AUTO) 6.6 (2.1-6.9); NEUTROPHILS % 92.7 % (38.7-80.0); PLATELET COUNT 351 x10e3/uL (140-360); RED BLOOD COUNT 2.77 x10e6/uL (3.6-5.1); RED CELL DISTRIBUTION WIDTH 18.1 % (11.7-14.4); WHITE BLOOD COUNT 7.16 x10e3/uL (4.8-10.8)
[2024-06-12 07:43] LABS: ALBUMIN 3.3 g/dL (3.5-5.0); ALBUMIN/GLOBULIN RATIO 0.9 (0.8-2.0); ALKALINE PHOSPHATASE 79 IU/L (40-150); BILIRUBIN,TOTAL 0.4 mg/dL (0.2-1.2); BLOOD UREA NITROGEN 43 mg/dL (7-26); BUN/CREATININE RATIO 12 (6-25); CALCIUM 9.3 mg/dL (8.4-10.2); CARBON DIOXIDE 21 mmol/L (22-29); CHLORIDE 101 mmol/L (98-107); CREATININE, SERUM 3.52 mg/dL (0.57-1.11); EST GLOMERULAR FILTRATION RATE 13 ML/MIN (>=60); GLUCOSE 225 mg/dL (74-118); SODIUM 140 mmol/L (136-145); TOTAL PROTEIN 7.1 g/dL (6.5-8.1)
[2024-06-12 07:44] LABS: ALANINE AMINOTRANSFERASE < 6 IU/L (0-55)
[2024-06-12 08:34] LABS: ABG HCO3 26 mmol/L (22-26); ABG PCO2 59 mmHg (35-45); ABG PH 7.26 (7.35-7.45); ABG PO2 113 mmHg (80-105); ABG TCO2 28
[2024-06-12] MEDS: METHYLPREDNISOLONE SOD SUCC 125 MG/2ML VIAL IV ONE (10:38)
[2024-06-13] VITALS (60 sets, daily range): BP systolic 55–158; BP diastolic 12–112; PULSE 57–91; RESP 14–31; TEMP 97.4–99.4; O2SAT 82–100
[2024-06-13 06:19] LABS: BASOPHILS % 0.1 % (0.0-1.0); LYMPHOCYTES # (AUTO) 0.2 (1.0-3.2); LYMPHOCYTES % 2.4 % (18.0-39.1); MEAN CORPUSCULAR HEMOGLOBIN 26.2 pg (28-32); MEAN CORPUSCULAR HGB CONC 28.4 g/dL (31-35); MONOCYTES # (AUTO) 0.1 (0.2-0.8); MONOCYTES % 1.3 % (4.4-11.3); NEUTROPHILS # (AUTO) 7.5 (2.1-6.9); NEUTROPHILS % 95.7 % (38.7-80.0); RED BLOOD COUNT 2.71 x10e6/uL (3.6-5.1); RED CELL DISTRIBUTION WIDTH 18.6 % (11.7-14.4)
[2024-06-13 06:24] LABS: HEMOGLOBIN 7.1 g/dL (12.0-16.0); MEAN CORPUSCULAR VOLUME 92.3 fL (81-99); PLATELET COUNT 342 x10e3/uL (140-360)
[2024-06-13 06:36] LABS: ALBUMIN 3.5 g/dL (3.5-5.0); ALBUMIN/GLOBULIN RATIO 1.1 (0.8-2.0); ANION GAP 20.5 mmol/L (8-16); BILIRUBIN,TOTAL 0.4 mg/dL (0.2-1.2); CALCIUM 8.9 mg/dL (8.4-10.2); CREATININE, SERUM 2.36 mg/dL (0.57-1.11); POTASSIUM 3.5 mmol/L (3.5-5.1); TOTAL PROTEIN 6.8 g/dL (6.5-8.1)
[2024-06-13 07:48] LABS: ABG HCO3 26 mmol/L (22-26); ABG PCO2 59 mmHg (35-45); ABG PH 7.26 (7.35-7.45); ABG PO2 113 mmHg (80-105); ABG TCO2 28
[2024-06-13 07:48] LABS: ABG HCO3 33 mmol/L (22-26); ABG PCO2 80 mmHg (35-45); ABG PH 7.22 (7.35-7.45); ABG PO2 47 mmHg (80-105); ABG TCO2 35
[2024-06-13 07:48] LABS: ABG HCO3 34 mmol/L (22-26); ABG PCO2 69 mmHg (35-45); ABG PO2 45 mmHg (80-105); ABG TCO2 36
[2024-06-13 07:48] LABS: ABG HCO3 32 mmol/L (22-26); ABG PCO2 75 mmHg (35-45); ABG PH 7.24 (7.35-7.45); ABG PO2 155 mmHg (80-105); ABG TCO2 34
[2024-06-13 07:48] LABS: ABG HCO3 31 mmol/L (22-26); ABG PCO2 76 mmHg (35-45); ABG PH 7.22 (7.35-7.45); ABG PO2 109 mmHg (80-105); ABG TCO2 33
[2024-06-13 07:48] LABS: ABG HCO3 29 mmol/L (22-26); ABG PCO2 73 mmHg (35-45); ABG PH 7.21 (7.35-7.45); ABG PO2 118 mmHg (80-105); ABG TCO2 31
[2024-06-13] MEDS: METHYLPREDNISOLONE SOD SUCC 125 MG/2ML VIAL IV ONE (08:40)
[2024-06-13 12:23] LABS: ABG HCO3 28 mmol/L (22-26); ABG PCO2 52 mmHg (35-45); ABG PH 7.33 (7.35-7.45); ABG PO2 133 mmHg (80-105); ABG TCO2 29
[2024-06-14] VITALS (41 sets, daily range): BP systolic 93–168; BP diastolic 44–123; PULSE 53–114; RESP 10–29; TEMP 98.1–100; O2SAT 94–100
[2024-06-14 07:28] LABS: BASOPHILS % 0.1 % (0.0-1.0); HEMATOCRIT 27.1 % (34.2-44.1); HEMOGLOBIN 7.8 g/dL (12.0-16.0); LYMPHOCYTES # (AUTO) 0.2 (1.0-3.2); LYMPHOCYTES % 1.4 % (18.0-39.1); MEAN CORPUSCULAR HEMOGLOBIN 26.2 pg (28-32); MEAN CORPUSCULAR HGB CONC 28.8 g/dL (31-35); MEAN CORPUSCULAR VOLUME 90.9 fL (81-99); MONOCYTES # (AUTO) 0.2 (0.2-0.8); MONOCYTES % 1.5 % (4.4-11.3); NEUTROPHILS # (AUTO) 11.4 (2.1-6.9); NEUTROPHILS % 96.4 % (38.7-80.0); PLATELET COUNT 335 x10e3/uL (140-360); RED BLOOD COUNT 2.98 x10e6/uL (3.6-5.1); RED CELL DISTRIBUTION WIDTH 18.8 % (11.7-14.4)
[2024-06-14 07:30] LABS: WHITE BLOOD COUNT 11.85 x10e3/uL (4.8-10.8)
[2024-06-14 07:55] LABS: ALANINE AMINOTRANSFERASE < 6 IU/L (0-55); ALBUMIN 3.4 g/dL (3.5-5.0); ALKALINE PHOSPHATASE 64 IU/L (40-150); ANION GAP 23.9 mmol/L (8-16); BILIRUBIN,TOTAL 0.4 mg/dL (0.2-1.2); BLOOD UREA NITROGEN 61 mg/dL (7-26); BUN/CREATININE RATIO 20 (6-25); CALCIUM 9.1 mg/dL (8.4-10.2); CARBON DIOXIDE 18 mmol/L (22-29); CHLORIDE 100 mmol/L (98-107); CREATININE, SERUM 3.11 mg/dL (0.57-1.11); EST GLOMERULAR FILTRATION RATE 16 ML/MIN (>=60); GLUCOSE 227 mg/dL (74-118); POTASSIUM 3.9 mmol/L (3.5-5.1); SODIUM 138 mmol/L (136-145); TOTAL PROTEIN 6.7 g/dL (6.5-8.1)
[2024-06-14] MEDS: COLLAGENASE 5 GM TUBE TP SCH (08:06)
[2024-06-14] MEDS: BALSAM PERU/CASTOR OIL 60 GM OINT...G. TP SCH (08:06)
[2024-06-14] MEDS ORDERED: HEPARIN SOD (PORCINE) 1000 UNIT/ML SDV IV PRN (18:45)
[2024-06-15] VITALS (23 sets, daily range): BP systolic 80–131; BP diastolic 34–98; PULSE 38–80; RESP 14–25; TEMP 97–97.6; O2SAT 94–100
[2024-06-15] MEDS: APIXABAN 2.5 MG TABLET PO SCH (09:00)
[2024-06-15 14:00] LABS: BASOPHILS % 0.1 % (0.0-1.0); EOSINOPHILS % 0.2 % (0.0-6.0); HEMATOCRIT 25.3 % (34.2-44.1); HEMOGLOBIN 7.3 g/dL (12.0-16.0); LYMPHOCYTES # (AUTO) 0.4 (1.0-3.2); LYMPHOCYTES % 4.2 % (18.0-39.1); MEAN CORPUSCULAR HEMOGLOBIN 26.4 pg (28-32); MEAN CORPUSCULAR HGB CONC 28.9 g/dL (31-35); MEAN CORPUSCULAR VOLUME 91.7 fL (81-99); MONOCYTES # (AUTO) 0.2 (0.2-0.8); MONOCYTES % 2.7 % (4.4-11.3); NEUTROPHILS # (AUTO) 8.1 (2.1-6.9); NEUTROPHILS % 92.3 % (38.7-80.0); PLATELET COUNT 195 x10e3/uL (140-360); RED BLOOD COUNT 2.76 x10e6/uL (3.6-5.1); RED CELL DISTRIBUTION WIDTH 18.7 % (11.7-14.4)
[2024-06-15 14:34] LABS: ALBUMIN 3.2 g/dL (3.5-5.0); ALBUMIN/GLOBULIN RATIO 1.2 (0.8-2.0); ALKALINE PHOSPHATASE 50 IU/L (40-150); BILIRUBIN,TOTAL 0.6 mg/dL (0.2-1.2); BLOOD UREA NITROGEN 38 mg/dL (7-26); BUN/CREATININE RATIO 17 (6-25); CALCIUM 8.5 mg/dL (8.4-10.2); CARBON DIOXIDE 27 mmol/L (22-29); CHLORIDE 101 mmol/L (98-107); CREATININE, SERUM 2.18 mg/dL (0.57-1.11); EST GLOMERULAR FILTRATION RATE 24 ML/MIN (>=60); GLUCOSE 91 mg/dL (74-118); SODIUM 142 mmol/L (136-145); TOTAL PROTEIN 5.9 g/dL (6.5-8.1)
[2024-06-15 14:35] LABS: ALANINE AMINOTRANSFERASE < 6 IU/L (0-55)
[2024-06-15 17:10] LABS: LYMPHOCYTES % (MANUAL) 8 % (19-48); NEUTROPHILS % (MANUAL) 92 % (40-74); PLATELET ESTIMATE ADEQUATE; PLATELET MORPHOLOGY COMMENT NORMAL
[2024-06-16] VITALS (25 sets, daily range): BP systolic 60–137; BP diastolic 48–78; PULSE 52–85; RESP 6–27; TEMP 97–97.8; O2SAT 87–100
[2024-06-17] VITALS (26 sets, daily range): BP systolic 104–143; BP diastolic 52–115; PULSE 81–124; RESP 0–28; TEMP 96.8–98; O2SAT 97–100
[2024-06-17 06:54] LABS: ABG HCO3 28 mmol/L (22-26); ABG PCO2 52 mmHg (35-45); ABG PH 7.33 (7.35-7.45); ABG PO2 133 mmHg (80-105); ABG TCO2 29
[2024-06-17 07:02] LABS: TOTAL PROTEIN,BODY FLUID 3.3 g/dL
[2024-06-17 07:08] LABS: ANION GAP 20.1 mmol/L (8-16); CALCIUM 8.3 mg/dL (8.4-10.2); CREATININE, SERUM 3.53 mg/dL (0.57-1.11)
[2024-06-17 07:09] LABS: POTASSIUM 3.1 mmol/L (3.5-5.1)
[2024-06-17 07:39] LABS: FREE T4 (FREE THYROXINE) 1.11 ng/dL (0.8-1.8); THYROID STIMULATING HORMONE 0.069 uIU/mL (0.350-4.940)
[2024-06-17] MEDS ORDERED: HEPARIN SOD (PORCINE) 1000 UNIT/ML SDV IV PRN (10:30)
[2024-06-17] MEDS: DILTIAZEM HCL 5 MG/ML 5 ML VIAL IV PRN ×2 (22:47)
[2024-06-18] VITALS (25 sets, daily range): BP systolic 87–132; BP diastolic 40–75; PULSE 84–115; RESP 18–32; TEMP 97.5–98.7; O2SAT 96–100
[2024-06-18 06:20] LABS: BASOPHILS % 0.1 % (0.0-1.0); EOSINOPHILS # (AUTO) 0.2 (0.0-0.4); EOSINOPHILS % 1.7 % (0.0-6.0); HEMATOCRIT 26.7 % (34.2-44.1); HEMOGLOBIN 7.5 g/dL (12.0-16.0); LYMPHOCYTES # (AUTO) 0.3 (1.0-3.2); LYMPHOCYTES % 2.5 % (18.0-39.1); MEAN CORPUSCULAR HEMOGLOBIN 26.3 pg (28-32); MEAN CORPUSCULAR HGB CONC 28.1 g/dL (31-35); MEAN CORPUSCULAR VOLUME 93.7 fL (81-99); MONOCYTES # (AUTO) 0.4 (0.2-0.8); MONOCYTES % 3.4 % (4.4-11.3); NEUTROPHILS # (AUTO) 9.6 (2.1-6.9); NEUTROPHILS % 91.4 % (38.7-80.0); PLATELET COUNT 226 x10e3/uL (140-360); RED BLOOD COUNT 2.85 x10e6/uL (3.6-5.1); RED CELL DISTRIBUTION WIDTH 18.9 % (11.7-14.4); WHITE BLOOD COUNT 10.49 x10e3/uL (4.8-10.8)
[2024-06-18 06:37] LABS: INR 1.05; PROTHROMBIN TIME 14.3 seconds (11.9-14.5)
[2024-06-18 06:46] LABS: ALBUMIN 2.9 g/dL (3.5-5.0); ALBUMIN/GLOBULIN RATIO 0.9 (0.8-2.0); ANION GAP 15.3 mmol/L (8-16); BILIRUBIN,TOTAL 0.4 mg/dL (0.2-1.2); CALCIUM 8.4 mg/dL (8.4-10.2); CREATININE, SERUM 2.1 mg/dL (0.57-1.11); TOTAL PROTEIN 6.2 g/dL (6.5-8.1)
[2024-06-18 06:47] LABS: POTASSIUM 3.3 mmol/L (3.5-5.1)
[2024-06-18] MEDS: DEXTROSE 10% 1,000 ML IV ONE (14:07)
[2024-06-18] MEDS ORDERED: PROPOFOL IV EMULSION 50 ML IV ONE (16:56)
[2024-06-18] MEDS ORDERED: ESMOLOL HCL 100MG/10ML 10 MG/ML VIAL ONE (17:23)
[2024-06-18] MEDS: ALBUTEROL/IPRATROPIUM 3 ML NEB ONE (23:55)
[2024-06-19] VITALS (22 sets, daily range): BP systolic 100–128; BP diastolic 48–90; PULSE 76–106; RESP 16–27; TEMP 97.9–98.8; O2SAT 96–100
[2024-06-19 06:30] LABS: HEMATOCRIT 25.4 % (34.2-44.1); HEMOGLOBIN 7.2 g/dL (12.0-16.0); LYMPHOCYTES # (AUTO) 0.1 (1.0-3.2); LYMPHOCYTES % 1.1 % (18.0-39.1); MEAN CORPUSCULAR HEMOGLOBIN 26.2 pg (28-32); MEAN CORPUSCULAR HGB CONC 28.3 g/dL (31-35); MEAN CORPUSCULAR VOLUME 92.4 fL (81-99); MONOCYTES # (AUTO) 0.1 (0.2-0.8); MONOCYTES % 0.7 % (4.4-11.3); NEUTROPHILS # (AUTO) 8.8 (2.1-6.9); NEUTROPHILS % 97.6 % (38.7-80.0); PLATELET COUNT 220 x10e3/uL (140-360); RED BLOOD COUNT 2.75 x10e6/uL (3.6-5.1)
[2024-06-19 06:45] LABS: ALBUMIN 2.9 g/dL (3.5-5.0); ALBUMIN/GLOBULIN RATIO 0.9 (0.8-2.0); ANION GAP 17.4 mmol/L (8-16); BILIRUBIN,TOTAL 0.4 mg/dL (0.2-1.2); CALCIUM 8.2 mg/dL (8.4-10.2); CREATININE, SERUM 3.07 mg/dL (0.57-1.11); TOTAL PROTEIN 6.2 g/dL (6.5-8.1)
[2024-06-19 07:02] LABS: POTASSIUM 3.4 mmol/L (3.5-5.1)
[2024-06-19] MEDS: ACETAMINOPHEN 325 MG TAB PO PRN (22:30)
[2024-06-20] VITALS (18 sets, daily range): BP systolic 89–114; BP diastolic 48–90; PULSE 68–103; RESP 15–25; TEMP 98.5–98.9; O2SAT 94–100
[2024-06-20 06:51] LABS: BASOPHILS % 0.1 % (0.0-1.0); EOSINOPHILS # (AUTO) 0.1 (0.0-0.4); EOSINOPHILS % 0.8 % (0.0-6.0); HEMOGLOBIN 7.7 g/dL (12.0-16.0); LYMPHOCYTES # (AUTO) 0.4 (1.0-3.2); LYMPHOCYTES % 3.6 % (18.0-39.1); MEAN CORPUSCULAR HGB CONC 28.5 g/dL (31-35); MEAN CORPUSCULAR VOLUME 91.2 fL (81-99); MONOCYTES # (AUTO) 0.5 (0.2-0.8); NEUTROPHILS # (AUTO) 9.4 (2.1-6.9); NEUTROPHILS % 89.8 % (38.7-80.0); PLATELET COUNT 248 x10e3/uL (140-360); RED BLOOD COUNT 2.96 x10e6/uL (3.6-5.1); RED CELL DISTRIBUTION WIDTH 18.9 % (11.7-14.4); WHITE BLOOD COUNT 10.41 x10e3/uL (4.8-10.8)
[2024-06-20 07:21] LABS: ANION GAP 17.1 mmol/L (8-16); CALCIUM 8.7 mg/dL (8.4-10.2)
[2024-06-20 07:34] LABS: POTASSIUM 3.1 mmol/L (3.5-5.1)
[2024-06-20 07:36] LABS: % IRON SATURATION 19 % (15-50); IRON 42 ug/dL (50-170); TOTAL IRON BINDING CAPACITY 224 ug/dL (261-478); TRANSFERRIN 160 mg/dL (180-382)
[2024-06-20 08:21] LABS: FOLATE 6.5 ng/mL (7.0-15.4)
[2024-06-21] VITALS (40 sets, daily range): BP systolic 68–138; BP diastolic 35–90; PULSE 71–115; RESP 15–33; TEMP 97.4–99; O2SAT 96–100
[2024-06-21 05:40] LABS: EOSINOPHILS % 1.4 % (0.0-6.0); HEMOGLOBIN 7.5 g/dL (12.0-16.0); LYMPHOCYTES % 2.8 % (18.0-39.1); MEAN CORPUSCULAR HEMOGLOBIN 26.1 pg (28-32); MEAN CORPUSCULAR HGB CONC 27.8 g/dL (31-35); MEAN CORPUSCULAR VOLUME 94.1 fL (81-99); MONOCYTES % 5.9 % (4.4-11.3); NEUTROPHILS % 89.4 % (38.7-80.0); PLATELET COUNT 249 x10e3/uL (140-360); RED BLOOD COUNT 2.87 x10e6/uL (3.6-5.1); RED CELL DISTRIBUTION WIDTH 19.2 % (11.7-14.4); WHITE BLOOD COUNT 11.72 x10e3/uL (4.8-10.8)
[2024-06-21 05:41] LABS: BASOPHILS % 0.1 % (0.0-1.0); EOSINOPHILS # (AUTO) 0.2 (0.0-0.4); LYMPHOCYTES # (AUTO) 0.3 (1.0-3.2); MONOCYTES # (AUTO) 0.7 (0.2-0.8); NEUTROPHILS # (AUTO) 10.5 (2.1-6.9)
[2024-06-21 07:52] LABS: ANION GAP 18.1 mmol/L (8-16); POTASSIUM 3.1 mmol/L (3.5-5.1)
[2024-06-21 07:53] LABS: BILIRUBIN,TOTAL 0.3 mg/dL (0.2-1.2); CALCIUM 8.6 mg/dL (8.4-10.2); CREATININE, SERUM 2.96 mg/dL (0.57-1.11); TOTAL PROTEIN 5.9 g/dL (6.5-8.1)
[2024-06-21 08:31] LABS: ALBUMIN 2.6 g/dL (3.5-5.0); ALBUMIN/GLOBULIN RATIO 0.8 (0.8-2.0)
[2024-06-21] MEDS ORDERED: HEPARIN SOD (PORCINE) 1000 UNIT/ML SDV IV PRN ×3 (10:15)
[2024-06-21] MEDS: FOLIC ACID/CYANOCOB/PYRIDOXINE TAB PO SCH (13:25)
[2024-06-21] MEDS ORDERED: PIPERACILLIN/TAZOBACTAM SOD 2.25 GM VIAL ONE (17:03)
[2024-06-21] MEDS: POTASSIUM CHLORIDE 20 MEQ TAB CR PO ONE (19:32)
[2024-06-21] MEDS: INSULIN GLARGINE 100 UNITS/ML VIAL SQ SCH (20:20)
[2024-06-22] VITALS (23 sets, daily range): BP systolic 97–155; BP diastolic 45–91; PULSE 78–104; RESP 17–32; TEMP 97.8–98.3; O2SAT 96–100
[2024-06-22 07:21] LABS: ANION GAP 14.5 mmol/L (8-16); CALCIUM 8.7 mg/dL (8.4-10.2); CREATININE, SERUM 1.92 mg/dL (0.57-1.11); POTASSIUM 3.5 mmol/L (3.5-5.1)
[2024-06-22] MEDS ORDERED: EPOETIN ALFA-EPBX 10,000 UNIT/ML VIAL SC SCH (08:45)
[2024-06-23] VITALS (16 sets, daily range): BP systolic 125–161; BP diastolic 59–77; PULSE 70–84; RESP 15–28; TEMP 97.7–98.3; O2SAT 100
[2024-06-24] VITALS (27 sets, daily range): BP systolic 115–165; BP diastolic 56–151; PULSE 62–95; RESP 20–31; TEMP 97.8–98.5; O2SAT 96–100
[2024-06-24 06:28] LABS: BASOPHILS % 0.3 % (0.0-1.0); EOSINOPHILS # (AUTO) 0.5 (0.0-0.4); EOSINOPHILS % 4.9 % (0.0-6.0); HEMATOCRIT 25.3 % (34.2-44.1); HEMOGLOBIN 7.4 g/dL (12.0-16.0); LYMPHOCYTES # (AUTO) 0.6 (1.0-3.2); LYMPHOCYTES % 5.9 % (18.0-39.1); MEAN CORPUSCULAR HEMOGLOBIN 26.1 pg (28-32); MEAN CORPUSCULAR HGB CONC 29.2 g/dL (31-35); MEAN CORPUSCULAR VOLUME 89.4 fL (81-99); MONOCYTES # (AUTO) 0.6 (0.2-0.8); MONOCYTES % 5.8 % (4.4-11.3); NEUTROPHILS # (AUTO) 8.7 (2.1-6.9); NEUTROPHILS % 82.3 % (38.7-80.0); PLATELET COUNT 299 x10e3/uL (140-360); RED BLOOD COUNT 2.83 x10e6/uL (3.6-5.1); RED CELL DISTRIBUTION WIDTH 19.8 % (11.7-14.4)
[2024-06-24 10:13] LABS: ANION GAP 16.8 mmol/L (8-16); CALCIUM 8.5 mg/dL (8.4-10.2); CREATININE, SERUM 3.47 mg/dL (0.57-1.11); POTASSIUM 4.8 mmol/L (3.5-5.1)
[2024-06-24] MEDS: SODIUM CHLORIDE 0.9% 1000ML 1,000 ML ONE (13:02)
[2024-06-24] MEDS: ATORVASTATIN 40 MG TAB PEG SCH (21:25)
[2024-06-24] MEDS ORDERED: ACETAMINOPHEN 325 MG TAB PEG PRN (21:30)
[2024-06-25] VITALS (14 sets, daily range): BP systolic 109–142; BP diastolic 60–72; PULSE 74–88; RESP 20–27; TEMP 98.6–98.8; O2SAT 100
[2024-06-25 07:10] LABS: BASOPHILS % 0.3 % (0.0-1.0); EOSINOPHILS # (AUTO) 0.4 (0.0-0.4); EOSINOPHILS % 4.8 % (0.0-6.0); HEMATOCRIT 25.4 % (34.2-44.1); HEMOGLOBIN 7.5 g/dL (12.0-16.0); LYMPHOCYTES # (AUTO) 0.5 (1.0-3.2); LYMPHOCYTES % 5.9 % (18.0-39.1); MEAN CORPUSCULAR HEMOGLOBIN 26.4 pg (28-32); MEAN CORPUSCULAR HGB CONC 29.5 g/dL (31-35); MEAN CORPUSCULAR VOLUME 89.4 fL (81-99); MONOCYTES # (AUTO) 0.6 (0.2-0.8); MONOCYTES % 6.1 % (4.4-11.3); NEUTROPHILS # (AUTO) 7.6 (2.1-6.9); NEUTROPHILS % 82.1 % (38.7-80.0); PLATELET COUNT 288 x10e3/uL (140-360); RED BLOOD COUNT 2.84 x10e6/uL (3.6-5.1); RED CELL DISTRIBUTION WIDTH 20.2 % (11.7-14.4)
[2024-06-25 07:34] LABS: ANION GAP 14.6 mmol/L (8-16); CALCIUM 8.5 mg/dL (8.4-10.2); CREATININE, SERUM 1.99 mg/dL (0.57-1.11); POTASSIUM 3.6 mmol/L (3.5-5.1)
[2024-06-25] MEDS: AMIODARONE HCL 200 MG TAB PEG SCH (08:32)
[2024-06-25] MEDS: MIDODRINE HCL 5 MG TABLET PEG SCH (08:33)
[2024-06-25] MEDS: FERROUS SULFATE 325 MG TAB PEG SCH (08:33)
[2024-06-25] MEDS: FOLIC ACID/CYANOCOB/PYRIDOXINE TAB PEG SCH (08:33)
[2024-06-25] MEDS: METOPROLOL TARTRATE 25 MG TAB PEG SCH (08:34)
[2024-06-25] MEDS: PREGABALIN 25 MG CAP PEG SCH (08:34)
[2024-06-25] MEDS: IRON-VITAMIN-MINERAL CAPSULE PO SCH (08:34)
[2024-06-25 09:10] LABS: ANISOCYTOSIS MODERATE; HYPOCHROMASIA SLIGHT; OVALOCYTES FEW; PLATELET ESTIMATE ADEQUATE; PLATELET MORPHOLOGY COMMENT NORMAL
[2024-06-25 09:11] LABS: STOMATOCYTES SLIGHT; TARGET CELLS FEW
[2024-06-25] MEDS ORDERED: [UNRECOGNIZED DRUG - OTHER] PO (12:38)
[2024-06-25] MEDS ORDERED: Insulin Glargine SQ (12:38)
[2024-06-25] MEDS ORDERED: Ferrous Sulfate PEG (12:38)
[2024-06-25] MEDS ORDERED: HUMULIN R100 UNIT/2 SQ (12:38)
[2024-06-25] MEDS ORDERED: Folic Acid/Cyanocob/Pyridoxine PEG (12:38)
[2024-06-25] MEDS ORDERED: ATORVASTATIN 40 MG TAB PEG SCH (21:00)
== END 2024-06-25 16:41 | disposition home health service (06) | DRG 871 ==
LOC: ER 19:30 → ERHOLD 22:07 → ICU 23:31
PROVIDERS: ADMIT Internal Medicine; ATTEND Internal Medicine
PROC: 5A09457 Assistance with Respiratory Ventilation, 24-96 Consecutive Hours, Continuous Positive Airway Pressure (ICD-10-PCS; 2024-06-09)
PROC: 5A1D70Z Performance of Urinary Filtration, Intermittent, Less than 6 Hours Per Day (ICD-10-PCS; 2024-06-10)
PROC: 02HV33Z Insertion of Infusion Device into Superior Vena Cava, Percutaneous Approach (ICD-10-PCS; 2024-06-10)
PROC: 0W9B3ZZ Drainage of Left Pleural Cavity, Percutaneous Approach (ICD-10-PCS; principal; 2024-06-11)
PROC: 4A133R1 Monitoring of Arterial Saturation, Peripheral, Percutaneous Approach (ICD-10-PCS; 2024-06-11)
PROC: 3E0333Z Introduction of Anti-inflammatory into Peripheral Vein, Percutaneous Approach (ICD-10-PCS; 2024-06-11)
PROC: 3E033XZ Introduction of Vasopressor into Peripheral Vein, Percutaneous Approach (ICD-10-PCS; 2024-06-11)
PROC: 0DH63UZ Insertion of Feeding Device into Stomach, Percutaneous Approach (ICD-10-PCS; 2024-06-18)
DX: A41.9 Sepsis, unspecified organism (principal); I13.2 Hypertensive heart and chronic kidney disease with heart failure and with stage 5 chronic kidney disease, or end stage renal disease; I50.33 Acute on chronic diastolic (congestive) heart failure; J96.22 Acute and chronic respiratory failure with hypercapnia; R65.21 Severe sepsis with septic shock; J96.21 Acute and chronic respiratory failure with hypoxia; L89.153 Pressure ulcer of sacral region, stage 3; E11.22 Type 2 diabetes mellitus with diabetic chronic kidney disease; N18.6 End stage renal disease; J69.0 Pneumonitis due to inhalation of food and vomit; J90 Pleural effusion, not elsewhere classified; I69.351 Hemiplegia and hemiparesis following cerebral infarction affecting right dominant side; E44.0 Moderate protein-calorie malnutrition; I48.20 Chronic atrial fibrillation, unspecified; N13.30 Unspecified hydronephrosis; N13.8 Other obstructive and reflux uropathy; Z68.41 Body mass index [BMI] 40.0-44.9, adult; D63.1 Anemia in chronic kidney disease; R13.12 Dysphagia, oropharyngeal phase; Z99.81 Dependence on supplemental oxygen; Z99.2 Dependence on renal dialysis; E11.649 Type 2 diabetes mellitus with hypoglycemia without coma; E87.70 Fluid overload, unspecified; J44.9 Chronic obstructive pulmonary disease, unspecified; E03.9 Hypothyroidism, unspecified; E78.00 Pure hypercholesterolemia, unspecified; Z79.01 Long term (current) use of anticoagulants; Z79.84 Long term (current) use of oral hypoglycemic drugs; Z79.890 Hormone replacement therapy; Z74.01 Bed confinement status; Z90.710 Acquired absence of both cervix and uterus; Z93.6 Other artificial openings of urinary tract status; Z96.0 Presence of urogenital implants; Z90.49 Acquired absence of other specified parts of digestive tract; Z93.3 Colostomy status; Z85.048 Personal history of other malignant neoplasm of rectum, rectosigmoid junction, and anus; Z92.3 Personal history of irradiation; Z92.21 Personal history of antineoplastic chemotherapy; Z88.8 Allergy status to other drugs, medicaments and biological substances; Z87.891 Personal history of nicotine dependence
CPT/HCPCS: 32555; 36415; 36556; 36600; 43246; 71045; 71250; 74018; 74230; 74470; 76937; 77001; 80048; 80053; 82550; 82607; 82746; 82805; 82948; 83036; 83540; 83615; 83880; 84157; 84439; 84443; 84466; 84478; 84484; 85025; 85045; 85610; 86704; 86705; 86706; 87070; 87205; 87210; 87340; 88112; 88305; 89051; 93005; 94660; 94667; 94668; 94669; 94799; 96372; 99252; 99284; C1769; J1644; J1815; J2470; J2543; J2919; J7030; J7050; J7799

== ENCOUNTER 2024-07-07 06:37 | Inpatient (IN) | payer MEDICARE, OTHER ==
[~2024-07-07] VITALS: Ht 157.5 cm; Wt 85.7 kg
[2024-07-07] VITALS (33 sets, daily range): BP systolic 94–123; BP diastolic 43–65; PULSE 59–94; RESP 13–23; TEMP 97.6–98; O2SAT 92–100
[~2024-07-07 06:37] MED LIST changes: +Ferrous Sulfate PEG; +Folic Acid/Cyanocob/Pyridoxine PEG; +HUMULIN R100 UNIT/2 SQ; +Insulin Glargine SQ; +[UNRECOGNIZED DRUG - OTHER] PO
[2024-07-07] MEDS ORDERED: DEXTROSE 50% SYRINGE 50 ML IV ONE (06:43)
[2024-07-07] MEDS: DEXTROSE 50% SYRINGE 50 ML IV ONE ×2 (07:02→07:17)
[2024-07-07 07:14] LABS: BASOPHILS % 0.2 % (0.0-1.0); EOSINOPHILS # (AUTO) 0.3 (0.0-0.4); LYMPHOCYTES # (AUTO) 0.3 (1.0-3.2); LYMPHOCYTES % 4.1 % (18.0-39.1); MEAN CORPUSCULAR HGB CONC 26.7 g/dL (31-35); MEAN CORPUSCULAR VOLUME 104.8 fL (81-99); MONOCYTES # (AUTO) 0.4 (0.2-0.8); MONOCYTES % 5.3 % (4.4-11.3); NEUTROPHILS # (AUTO) 7.2 (2.1-6.9); NEUTROPHILS % 86.7 % (38.7-80.0); PLATELET COUNT 279 x10e3/uL (140-360); RED BLOOD COUNT 2.07 x10e6/uL (3.6-5.1); RED CELL DISTRIBUTION WIDTH 24.2 % (11.7-14.4); WHITE BLOOD COUNT 8.26 x10e3/uL (4.8-10.8)
[2024-07-07] MEDS: DEXTROSE 5% 500ML 500 ML IV ONE (07:15)
[2024-07-07 07:19] LABS: HEMATOCRIT 21.7 % (34.2-44.1); HEMOGLOBIN 5.8 g/dL (12.0-16.0)
[2024-07-07 07:28] LABS: CORONAVIRUS COVID-19 AG NEGATIVE (NEGATIVE); INFLUENZA A AG NEGATIVE (NEGATIVE); INFLUENZA B AG NEGATIVE (NEGATIVE)
[2024-07-07 07:29] LABS: BACTERIA,URINE MODERATE /HPF; BILIRUBIN,URINE NEGATIVE (NEGATIVE); CLARITY,URINE TURBID (CLEAR); COLOR,URINE YELLOW (YELLOW); EPITHELIAL CELLS,URINE FEW /LPF; GLUCOSE, URINE NEGATIVE (NEGATIVE); KETONES,URINE NEGATIVE (NEGATIVE); LEUKOCYTE ESTERASE ,URINE LARGE (NEGATIVE); NITRITE,URINE NEGATIVE (NEGATIVE); PH,URINE 7 (5 - 7); PROTEIN,URINE DIPSTICK >=300 (NEGATIVE); URINE UROBILINOGEN 0.2 mg/dL (0.2 - 1); WBC,URINE (MAN) >50 /HPF (0-5)
[2024-07-07 07:30] LABS: INR 1.22; PROTHROMBIN TIME 16.1 seconds (11.9-14.5)
[2024-07-07] MEDS ORDERED: FUROSEMIDE INJ 10 MG/ML 2 ML VIAL IV PRN (07:30)
[2024-07-07 07:31] LABS: PARTIAL THROMBOPLASTIN TIME 31.9 seconds (23.8-35.5)
[2024-07-07 07:40] LABS: ALANINE AMINOTRANSFERASE 11 IU/L (0-55); ALBUMIN 2.2 g/dL (3.5-5.0); ALBUMIN/GLOBULIN RATIO 0.7 (0.8-2.0); ALKALINE PHOSPHATASE 68 IU/L (40-150); ANION GAP 15.1 mmol/L (8-16); BILIRUBIN,TOTAL 0.3 mg/dL (0.2-1.2); BLOOD UREA NITROGEN 27 mg/dL (7-26); BUN/CREATININE RATIO 13 (6-25); CALCIUM 8.1 mg/dL (8.4-10.2); CARBON DIOXIDE 23 mmol/L (22-29); CHLORIDE 73 mmol/L (98-107); CREATININE, SERUM 2.13 mg/dL (0.57-1.11); EST GLOMERULAR FILTRATION RATE 25 ML/MIN (>=60); MAGNESIUM 1.7 MG/DL (1.3-2.1); TOTAL PROTEIN 5.4 g/dL (6.5-8.1)
[2024-07-07 07:45] LABS: CREATINE KINASE < 7 IU/L (29-168); POTASSIUM 3.1 mmol/L (3.5-5.1)
[2024-07-07] MEDS ORDERED: OCTREOTIDE ACETATE 600 MCG in SODIUM CHLORIDE 0.9% 250ML 300 ML IV SCH (07:45)
[2024-07-07 07:47] LABS: SODIUM 108 mmol/L (136-145)
[2024-07-07 07:48] LABS: TROPONIN I 0.007 ng/mL (0-0.300)
[2024-07-07] MEDS ORDERED: CEFTRIAXONE 1 GM VIAL ONE (08:09)
[2024-07-07] MEDS: SODIUM CHLORIDE 0.9% 250ML 250 ML IV ONE (08:13)
[2024-07-07] MEDS: OCTREOTIDE ACETATE 0.05 MG/ML AMP IV STA (08:19)
[2024-07-07] MEDS: OCTREOTIDE ACETATE 500 MCG in SODIUM CHLORIDE 0.9% 250ML 249 ML IV SCH (08:27)
[2024-07-07 08:35] LABS: ABG HCO3 33 mmol/L (22-26); ABG PCO2 58 mmHg (35-45); ABG PH 7.36 (7.35-7.45); ABG PO2 152 mmHg (80-105)
[2024-07-07 08:36] LABS: ABG TCO2 35
[2024-07-07] MEDS ORDERED: SODIUM CHLORIDE 0.9% 100 ML ONE (08:40)
[2024-07-07] MEDS ORDERED: IOPAMIDOL 370 MG/ML 100 ML INFUS..BTL INJ ONE (08:40)
[2024-07-07] MEDS: LINEZOLID 600 MG/D5W 300ML 300 ML IV SCH (08:44)
[2024-07-07] MEDS ORDERED: SODIUM CHLORIDE 0.9% 250ML 250 ML ONE (08:49)
[2024-07-07 08:52] LABS: ALBUMIN 2.2 g/dL (3.5-5.0); ALBUMIN/GLOBULIN RATIO 0.7 (0.8-2.0); ANION GAP 13.8 mmol/L (8-16); BILIRUBIN,TOTAL 0.3 mg/dL (0.2-1.2); CALCIUM 8.9 mg/dL (8.4-10.2); CREATININE, SERUM 1.94 mg/dL (0.57-1.11); TOTAL PROTEIN 5.4 g/dL (6.5-8.1)
[2024-07-07 08:53] LABS: POTASSIUM 2.8 mmol/L (3.5-5.1)
[2024-07-07] MEDS ORDERED: PANTOPRAZOLE SO40 MG PO (10:53)
[2024-07-07] MEDS ORDERED: B COMPLEX1 EACH PO (10:53)
[2024-07-07] MEDS ORDERED: ALBUTEROL/IPRATROPIUM 3 ML NEB NEB SCH (11:00)
[2024-07-07] MEDS: ALBUTEROL/IPRATROPIUM 3 ML NEB NEB PRN (11:23)
[2024-07-07 16:39] LABS: HEMATOCRIT 32.6 % (34.2-44.1)
[2024-07-07 16:43] LABS: HEMOGLOBIN 10.2 g/dL (12.0-16.0)
[2024-07-07] MEDS: DEXTROSE 50% SYRINGE 50 ML IV PRN (18:11)
[2024-07-07] MEDS: ATORVASTATIN 40 MG TAB PO SCH (20:00)
[2024-07-07] MEDS: MUPIROCIN 2% OINT 22 GM TUBE TOP SCH (20:01)
[2024-07-08] VITALS (23 sets, daily range): BP systolic 79–157; BP diastolic 48–95; PULSE 79–98; RESP 19–34; TEMP 97.2–98.3; O2SAT 89–100
[2024-07-08 01:07] LABS: % IRON SATURATION 16 % (15-50); IRON 42 ug/dL (50-170); TOTAL IRON BINDING CAPACITY 262 ug/dL (261-478); TRANSFERRIN 187 mg/dL (180-382)
[2024-07-08 01:46] LABS: TROPONIN I 0.004 ng/mL (0-0.300)
[2024-07-08 07:41] LABS: ABG HCO3 33 mmol/L (22-26); ABG PCO2 59 mmHg (35-45); ABG PH 7.36 (7.35-7.45); ABG PO2 152 mmHg (80-105); ABG TCO2 35
[2024-07-08] MEDS: AMIODARONE HCL 200 MG TAB PO SCH (08:03)
[2024-07-08] MEDS: MIDODRINE HCL 5 MG TABLET PO PRN (08:04)
[2024-07-08 09:27] LABS: BASOPHILS # (AUTO) 0.1 (0.0-0.1); BASOPHILS % 0.5 % (0.0-1.0); EOSINOPHILS # (AUTO) 0.4 (0.0-0.4); EOSINOPHILS % 3.2 % (0.0-6.0); HEMATOCRIT 32.9 % (34.2-44.1); HEMOGLOBIN 10.3 g/dL (12.0-16.0); LYMPHOCYTES # (AUTO) 0.3 (1.0-3.2); LYMPHOCYTES % 2.4 % (18.0-39.1); MEAN CORPUSCULAR HEMOGLOBIN 28.7 pg (28-32); MEAN CORPUSCULAR HGB CONC 31.3 g/dL (31-35); MEAN CORPUSCULAR VOLUME 91.6 fL (81-99); MONOCYTES # (AUTO) 0.6 (0.2-0.8); MONOCYTES % 4.4 % (4.4-11.3); NEUTROPHILS % 88.7 % (38.7-80.0); PLATELET COUNT 295 x10e3/uL (140-360); RED BLOOD COUNT 3.59 x10e6/uL (3.6-5.1); RED CELL DISTRIBUTION WIDTH 21.2 % (11.7-14.4); WHITE BLOOD COUNT 13.47 x10e3/uL (4.8-10.8)
[2024-07-08 09:57] LABS: TROPONIN I 0.002 ng/mL (0-0.300)
[2024-07-08 10:24] LABS: ALBUMIN 2.3 g/dL (3.5-5.0); ALBUMIN/GLOBULIN RATIO 0.6 (0.8-2.0); ANION GAP 18.6 mmol/L (8-16); BILIRUBIN,TOTAL 0.4 mg/dL (0.2-1.2); CALCIUM 8.7 mg/dL (8.4-10.2); CHOL/HDL RATIO 2.4 (3.0-3.6); CREATININE, SERUM 2.44 mg/dL (0.57-1.11); POTASSIUM 3.6 mmol/L (3.5-5.1)
[2024-07-08] MEDS ORDERED: IOPAMIDOL 370 MG/ML 100 ML INFUS..BTL INJ ONE (10:29)
[2024-07-08] MEDS ORDERED: SODIUM CHLORIDE 0.9% 500ML 500 ML ONE (10:29)
[2024-07-08] MEDS ORDERED: LIDOCAINE HCL 1% 30ML-PF VIAL ONE (10:29)
[2024-07-08] MEDS ORDERED: MIDAZOLAM HCL 2 MG/2 ML VIAL ONE (10:51)
[2024-07-08] MEDS ORDERED: FENTANYL CITRATE/PF 100MCG/2 ML INJ ONE (10:52)
[2024-07-08] MEDS ORDERED: SODIUM CHLORIDE 0.9% 250ML 250 ML ONE (10:52)
[2024-07-08 11:43] LABS: ANISOCYTOSIS MODERATE; PLATELET ESTIMATE ADEQUATE; PLATELET MORPHOLOGY COMMENT NORMAL; POLYCHROMASIA FEW; RBC MORPHOLOGY COMMENT ABNORMAL
[2024-07-09] VITALS (18 sets, daily range): BP systolic 104–155; BP diastolic 40–79; PULSE 78–99; RESP 17–35; TEMP 97.2–98.4; O2SAT 96–100
[2024-07-09 07:33] LABS: BASOPHILS # (AUTO) 0.1 (0.0-0.1); BASOPHILS % 0.5 % (0.0-1.0); EOSINOPHILS # (AUTO) 0.4 (0.0-0.4); EOSINOPHILS % 2.8 % (0.0-6.0); HEMATOCRIT 32.3 % (34.2-44.1); LYMPHOCYTES # (AUTO) 0.3 (1.0-3.2); LYMPHOCYTES % 2.1 % (18.0-39.1); MEAN CORPUSCULAR HEMOGLOBIN 28.3 pg (28-32); MEAN CORPUSCULAR VOLUME 91.5 fL (81-99); MONOCYTES # (AUTO) 0.7 (0.2-0.8); MONOCYTES % 5.2 % (4.4-11.3); NEUTROPHILS # (AUTO) 11.1 (2.1-6.9); NEUTROPHILS % 88.4 % (38.7-80.0); PLATELET COUNT 351 x10e3/uL (140-360); RED BLOOD COUNT 3.53 x10e6/uL (3.6-5.1); RED CELL DISTRIBUTION WIDTH 20.8 % (11.7-14.4); WHITE BLOOD COUNT 12.59 x10e3/uL (4.8-10.8)
[2024-07-09 08:04] LABS: ALBUMIN 2.3 g/dL (3.5-5.0); ALBUMIN/GLOBULIN RATIO 0.6 (0.8-2.0); ANION GAP 16.7 mmol/L (8-16); BILIRUBIN,TOTAL 0.3 mg/dL (0.2-1.2); CALCIUM 8.4 mg/dL (8.4-10.2); CREATININE, SERUM 2.75 mg/dL (0.57-1.11); POTASSIUM 3.7 mmol/L (3.5-5.1)
[2024-07-09] MEDS: HYDROCODONE/APAP 5MG-325MG TAB PEG PRN (10:47)
[2024-07-09] MEDS ORDERED: HEPARIN SOD (PORCINE) 1000 UNIT/ML SDV IV PRN (17:45)
[2024-07-09] MEDS ORDERED: SODIUM CHLORIDE 0.9% 1000ML 2,000 ML IV PRN (17:45)
[2024-07-09] MEDS ORDERED: ALBUMIN 25% 12.5GM 0.25 GM/ML BTL IV PRN (17:45)
[2024-07-09] MEDS: ATORVASTATIN 40 MG TAB PEG SCH (21:55)
[2024-07-10] VITALS (28 sets, daily range): BP systolic 114–141; BP diastolic 51–109; PULSE 78–114; RESP 15–31; TEMP 97.5–97.8; O2SAT 91–100
[2024-07-10] MEDS: IRON SUCROSE 100 MG in SODIUM CHLORIDE 0.9% 100 ML IV SCH (05:43)
[2024-07-10 06:39] LABS: BASOPHILS # (AUTO) 0.1 (0.0-0.1); BASOPHILS % 0.5 % (0.0-1.0); EOSINOPHILS # (AUTO) 0.3 (0.0-0.4); EOSINOPHILS % 2.7 % (0.0-6.0); HEMATOCRIT 32.2 % (34.2-44.1); HEMOGLOBIN 9.8 g/dL (12.0-16.0); LYMPHOCYTES # (AUTO) 0.2 (1.0-3.2); LYMPHOCYTES % 1.4 % (18.0-39.1); MEAN CORPUSCULAR HEMOGLOBIN 28.2 pg (28-32); MEAN CORPUSCULAR HGB CONC 30.4 g/dL (31-35); MEAN CORPUSCULAR VOLUME 92.8 fL (81-99); MONOCYTES # (AUTO) 0.7 (0.2-0.8); MONOCYTES % 6.6 % (4.4-11.3); NEUTROPHILS # (AUTO) 9.5 (2.1-6.9); NEUTROPHILS % 87.6 % (38.7-80.0); PLATELET COUNT 327 x10e3/uL (140-360); RED BLOOD COUNT 3.47 x10e6/uL (3.6-5.1); RED CELL DISTRIBUTION WIDTH 21.2 % (11.7-14.4); WHITE BLOOD COUNT 10.83 x10e3/uL (4.8-10.8)
[2024-07-10 07:10] LABS: ALBUMIN 2.2 g/dL (3.5-5.0); ALBUMIN/GLOBULIN RATIO 0.6 (0.8-2.0); ANION GAP 16.4 mmol/L (8-16); BILIRUBIN,TOTAL 0.3 mg/dL (0.2-1.2); CALCIUM 8.2 mg/dL (8.4-10.2); CREATININE, SERUM 1.84 mg/dL (0.57-1.11); TOTAL PROTEIN 5.7 g/dL (6.5-8.1)
[2024-07-10 07:16] LABS: POTASSIUM 3.4 mmol/L (3.5-5.1)
[2024-07-10] MEDS: AMIODARONE HCL 200 MG TAB PEG SCH (10:17)
[2024-07-10] MEDS ORDERED: POTASSIUM CHLORIDE 20 MEQ TAB CR PO ONE (18:00)
[2024-07-10] MEDS ORDERED: KCL 20 MEQ PACKET/ ORAL SOLN NG ONE (19:30)
[2024-07-10] MEDS: KCL 20 MEQ PACKET/ ORAL SOLN PEG ONE (20:38)
[2024-07-11] VITALS (20 sets, daily range): BP systolic 109–133; BP diastolic 51–90; PULSE 91–110; RESP 16–27; TEMP 97.5–98.3; O2SAT 98–100
[2024-07-11 05:50] LABS: HEPATITIS B CORE AB TOTAL Positive; HEPATITIS B CORE IGM (P) Negative; HEPATITIS B SURFACE AB QUANT <3.5; HEPATITIS B SURFACE AG (P) Negative
[2024-07-12] VITALS (21 sets, daily range): BP systolic 119–148; BP diastolic 53–79; PULSE 91–116; RESP 22–30; TEMP 97.5–98.6; O2SAT 94–100
[2024-07-12 08:07] LABS: ANION GAP 14.5 mmol/L (8-16); CALCIUM 8.4 mg/dL (8.4-10.2); CREATININE, SERUM 2.11 mg/dL (0.57-1.11); POTASSIUM 3.5 mmol/L (3.5-5.1)
[2024-07-12] MEDS ORDERED: HEPARIN SOD (PORCINE) 1000 UNIT/ML SDV IV PRN (08:45)
[2024-07-13] VITALS (25 sets, daily range): BP systolic 121–145; BP diastolic 60–75; PULSE 85–108; RESP 19–28; TEMP 97.5–98; O2SAT 96–100
[2024-07-13 07:18] LABS: BASOPHILS # (AUTO) 0.1 (0.0-0.1); BASOPHILS % 0.8 % (0.0-1.0); EOSINOPHILS # (AUTO) 0.5 (0.0-0.4); EOSINOPHILS % 4.6 % (0.0-6.0); HEMATOCRIT 36.7 % (34.2-44.1); HEMOGLOBIN 11.1 g/dL (12.0-16.0); LYMPHOCYTES # (AUTO) 0.3 (1.0-3.2); LYMPHOCYTES % 2.9 % (18.0-39.1); MEAN CORPUSCULAR HEMOGLOBIN 28.6 pg (28-32); MEAN CORPUSCULAR HGB CONC 30.2 g/dL (31-35); MEAN CORPUSCULAR VOLUME 94.6 fL (81-99); MONOCYTES # (AUTO) 0.9 (0.2-0.8); MONOCYTES % 8.5 % (4.4-11.3); NEUTROPHILS # (AUTO) 8.4 (2.1-6.9); NEUTROPHILS % 79.2 % (38.7-80.0); PLATELET COUNT 351 x10e3/uL (140-360); RED BLOOD COUNT 3.88 x10e6/uL (3.6-5.1); RED CELL DISTRIBUTION WIDTH 20.8 % (11.7-14.4); WHITE BLOOD COUNT 10.65 x10e3/uL (4.8-10.8)
[2024-07-13 07:32] LABS: ALBUMIN 2.2 g/dL (3.5-5.0); ALBUMIN/GLOBULIN RATIO 0.6 (0.8-2.0); ANION GAP 13.5 mmol/L (8-16); BILIRUBIN,TOTAL 0.3 mg/dL (0.2-1.2); CALCIUM 8.2 mg/dL (8.4-10.2); CREATININE, SERUM 1.64 mg/dL (0.57-1.11); POTASSIUM 3.5 mmol/L (3.5-5.1); TOTAL PROTEIN 5.7 g/dL (6.5-8.1)
[2024-07-14] VITALS (22 sets, daily range): BP systolic 111–149; BP diastolic 55–78; PULSE 78–109; RESP 19–31; TEMP 97.8–98.9; O2SAT 94–100
[2024-07-14] MEDS: APIXABAN 5 MG TABLET PO SCH (11:09)
[2024-07-15] VITALS (18 sets, daily range): BP systolic 119–147; BP diastolic 48–75; PULSE 96–109; RESP 16–36; TEMP 97.5–97.9; O2SAT 94–100
[2024-07-15 13:15] LABS: BASOPHILS # (AUTO) 0.1 (0.0-0.1); BASOPHILS % 0.7 % (0.0-1.0); EOSINOPHILS # (AUTO) 0.3 (0.0-0.4); EOSINOPHILS % 2.5 % (0.0-6.0); HEMATOCRIT 37.7 % (34.2-44.1); HEMOGLOBIN 11.4 g/dL (12.0-16.0); LYMPHOCYTES # (AUTO) 0.4 (1.0-3.2); MEAN CORPUSCULAR HEMOGLOBIN 28.4 pg (28-32); MEAN CORPUSCULAR HGB CONC 30.2 g/dL (31-35); MONOCYTES # (AUTO) 0.7 (0.2-0.8); MONOCYTES % 4.9 % (4.4-11.3); NEUTROPHILS # (AUTO) 11.5 (2.1-6.9); NEUTROPHILS % 86.4 % (38.7-80.0); PLATELET COUNT 361 x10e3/uL (140-360); RED BLOOD COUNT 4.01 x10e6/uL (3.6-5.1); RED CELL DISTRIBUTION WIDTH 20.2 % (11.7-14.4); WHITE BLOOD COUNT 13.36 x10e3/uL (4.8-10.8)
[2024-07-15 13:50] LABS: ANION GAP 15.8 mmol/L (8-16); CALCIUM 9.1 mg/dL (8.4-10.2); CREATININE, SERUM 2.35 mg/dL (0.57-1.11); POTASSIUM 3.8 mmol/L (3.5-5.1)
[2024-07-15] MEDS ORDERED: HEPARIN SOD (PORCINE) 1000 UNIT/ML SDV IV PRN (19:30)
[2024-07-16] VITALS (10 sets, daily range): BP systolic 123–147; BP diastolic 55–90; PULSE 93–108; RESP 17–22; TEMP 97.5–97.9; O2SAT 96–100
[2024-07-16] MEDS: HYDROCODONE/APAP 5MG-325MG TAB PO PRN (14:25)
[2024-07-17] VITALS (13 sets, daily range): BP systolic 132–147; BP diastolic 63–71; PULSE 89–107; RESP 18–20; TEMP 97–97.8; O2SAT 97–100
[2024-07-17 07:03] LABS: ANION GAP 12.6 mmol/L (8-16); CALCIUM 9.1 mg/dL (8.4-10.2); CREATININE, SERUM 1.9 mg/dL (0.57-1.11); POTASSIUM 3.6 mmol/L (3.5-5.1)
[2024-07-17] MEDS ORDERED: DEXTROSE 50% SYRINGE 50 ML IV PRN (12:15)
[2024-07-17] MEDS: INSULIN LISPRO 100 UNIT/1 ML 3ML VIAL SQ SCH (12:18)
[2024-07-18] VITALS (11 sets, daily range): BP systolic 126–148; BP diastolic 54–72; PULSE 74–107; RESP 18–20; TEMP 97–98.1; O2SAT 93–100
[2024-07-18 08:55] LABS: ANION GAP 15.2 mmol/L (8-16); CALCIUM 9.6 mg/dL (8.4-10.2); CREATININE, SERUM 2.14 mg/dL (0.57-1.11); POTASSIUM 4.2 mmol/L (3.5-5.1)
[2024-07-18] MEDS: IRON-VITAMIN-MINERAL CAPSULE PO SCH (09:34)
[2024-07-19] VITALS (11 sets, daily range): BP systolic 124–155; BP diastolic 55–79; PULSE 70–105; RESP 18–22; TEMP 97.2–97.6; O2SAT 96–100
[2024-07-19 08:33] LABS: ANION GAP 17.5 mmol/L (8-16); CALCIUM 9.9 mg/dL (8.4-10.2); CREATININE, SERUM 2.11 mg/dL (0.57-1.11); POTASSIUM 4.5 mmol/L (3.5-5.1)
[2024-07-19] MEDS: FUROSEMIDE 40 MG TAB PO ONE (17:26)
[2024-07-20] VITALS (9 sets, daily range): BP systolic 96–160; BP diastolic 48–64; PULSE 74–112; RESP 17–20; TEMP 97.3–97.7; O2SAT 96–100
[2024-07-20 08:32] LABS: ANION GAP 13.1 mmol/L (8-16); CALCIUM 9.9 mg/dL (8.4-10.2); CREATININE, SERUM 2.1 mg/dL (0.57-1.11); POTASSIUM 4.1 mmol/L (3.5-5.1)
[2024-07-20] MEDS: FUROSEMIDE 40 MG TAB PO SCH (10:00)
[2024-07-20] MEDS: MIDODRINE HCL 5 MG TABLET PEG PRN (12:32)
[2024-07-20] MEDS ORDERED: HEPARIN SOD (PORCINE) 1000 UNIT/ML SDV IV PRN (13:00)
[2024-07-21] VITALS (10 sets, daily range): BP systolic 119–133; BP diastolic 48–90; PULSE 64–121; RESP 18–22; TEMP 97–97.8; O2SAT 96–100
[2024-07-21] MEDS: ONDANSETRON HCL INJ 2MG/ML 2ML 2 MG/ML VIAL IV PRN (10:20)
[2024-07-21 13:36] LABS: BASOPHILS # (AUTO) 0.1 (0.0-0.1); BASOPHILS % 0.9 % (0.0-1.0); EOSINOPHILS # (AUTO) 0.2 (0.0-0.4); EOSINOPHILS % 1.4 % (0.0-6.0); HEMATOCRIT 35.5 % (34.2-44.1); HEMOGLOBIN 10.2 g/dL (12.0-16.0); LYMPHOCYTES # (AUTO) 0.4 (1.0-3.2); LYMPHOCYTES % 2.7 % (18.0-39.1); MEAN CORPUSCULAR HEMOGLOBIN 28.8 pg (28-32); MEAN CORPUSCULAR HGB CONC 28.7 g/dL (31-35); MEAN CORPUSCULAR VOLUME 100.3 fL (81-99); MONOCYTES # (AUTO) 0.5 (0.2-0.8); MONOCYTES % 3.2 % (4.4-11.3); NEUTROPHILS # (AUTO) 13.1 (2.1-6.9); NEUTROPHILS % 91.3 % (38.7-80.0); PLATELET COUNT 328 x10e3/uL (140-360); RED BLOOD COUNT 3.54 x10e6/uL (3.6-5.1); RED CELL DISTRIBUTION WIDTH 19.4 % (11.7-14.4); WHITE BLOOD COUNT 14.36 x10e3/uL (4.8-10.8)
[2024-07-21 14:03] LABS: ANION GAP 18.9 mmol/L (8-16); CALCIUM 9.1 mg/dL (8.4-10.2); CREATININE, SERUM 1.48 mg/dL (0.57-1.11); POTASSIUM 3.9 mmol/L (3.5-5.1)
[2024-07-22] VITALS (12 sets, daily range): BP systolic 103–164; BP diastolic 50–63; PULSE 102–114; RESP 16–22; TEMP 97–98.5; O2SAT 97–100
[2024-07-22 15:41] LABS: ANION GAP 15.9 mmol/L (8-16); CALCIUM 9.9 mg/dL (8.4-10.2); CREATININE, SERUM 1.88 mg/dL (0.57-1.11); POTASSIUM 3.9 mmol/L (3.5-5.1)
[2024-07-22] MEDS ORDERED: HEPARIN SOD (PORCINE) 1000 UNIT/ML SDV IV PRN (17:45)
[2024-07-22] MEDS: HEPARIN SOD (PORCINE) 1000 UNIT/ML SDV ONE ×2 (17:49)
[2024-07-23 03:44] VITALS: BP 112/50; PULSE 104; RESP 18; TEMP 97.4; O2SAT 100
[2024-07-23 07:14] LABS: ANION GAP 15.2 mmol/L (8-16); CALCIUM 8.6 mg/dL (8.4-10.2); CREATININE, SERUM 1.19 mg/dL (0.57-1.11)
[2024-07-23 07:17] LABS: POTASSIUM 3.2 mmol/L (3.5-5.1)
[2024-07-23 08:04] VITALS: BP 109/67; PULSE 105; RESP 19; TEMP 97.9; O2SAT 100
[2024-07-23 08:06] VITALS: PULSE 105; RESP 16; O2SAT 100
[2024-07-23 11:45] VITALS: BP 115/55; PULSE 105; RESP 18; TEMP 98.2; O2SAT 100
[2024-07-23 15:56] VITALS: BP 135/61; PULSE 106; RESP 18; TEMP 98.9; O2SAT 100
== END 2024-07-23 16:50 | disposition home or self-care (01) | DRG 314 ==
LOC: ER 06:42 → ERHOLD 10:00 → ICU 10:25 → MED/SURG3 07-15 10:42
PROVIDERS: ADMIT Internal Medicine; ATTEND Internal Medicine
PROC: 4A033R1 Measurement of Arterial Saturation, Peripheral, Percutaneous Approach (ICD-10-PCS; principal; 2024-07-07)
PROC: 30233N1 Transfusion of Nonautologous Red Blood Cells into Peripheral Vein, Percutaneous Approach (ICD-10-PCS; 2024-07-07)
PROC: 5A09357 Assistance with Respiratory Ventilation, Less than 24 Consecutive Hours, Continuous Positive Airway Pressure (ICD-10-PCS; 2024-07-07)
PROC: 3E0333Z Introduction of Anti-inflammatory into Peripheral Vein, Percutaneous Approach (ICD-10-PCS; 2024-07-07)
PROC: 0T9B70Z Drainage of Bladder with Drainage Device, Via Natural or Artificial Opening (ICD-10-PCS; 2024-07-07)
PROC: 0T9130Z Drainage of Left Kidney with Drainage Device, Percutaneous Approach (ICD-10-PCS; 2024-07-08)
DX: T82.7XXA Infection and inflammatory reaction due to other cardiac and vascular devices, implants and grafts, initial encounter (principal); A41.1 Sepsis due to other specified staphylococcus; N18.6 End stage renal disease; J96.01 Acute respiratory failure with hypoxia; I13.2 Hypertensive heart and chronic kidney disease with heart failure and with stage 5 chronic kidney disease, or end stage renal disease; K92.2 Gastrointestinal hemorrhage, unspecified; E44.0 Moderate protein-calorie malnutrition; J96.12 Chronic respiratory failure with hypercapnia; I50.32 Chronic diastolic (congestive) heart failure; J90 Pleural effusion, not elsewhere classified; I69.351 Hemiplegia and hemiparesis following cerebral infarction affecting right dominant side; N13.6 Pyonephrosis; E87.1 Hypo-osmolality and hyponatremia; I48.20 Chronic atrial fibrillation, unspecified; C79.89 Secondary malignant neoplasm of other specified sites; E11.22 Type 2 diabetes mellitus with diabetic chronic kidney disease; Z11.52 Encounter for screening for COVID-19; D63.1 Anemia in chronic kidney disease; R13.12 Dysphagia, oropharyngeal phase; Z99.2 Dependence on renal dialysis; E11.649 Type 2 diabetes mellitus with hypoglycemia without coma; E03.9 Hypothyroidism, unspecified; E87.70 Fluid overload, unspecified; J44.9 Chronic obstructive pulmonary disease, unspecified; E87.6 Hypokalemia; D50.0 Iron deficiency anemia secondary to blood loss (chronic); R53.81 Other malaise; R26.89 Other abnormalities of gait and mobility; T38.3X5A Adverse effect of insulin and oral hypoglycemic [antidiabetic] drugs, initial encounter; E66.01 Morbid (severe) obesity due to excess calories; Z68.34 Body mass index [BMI] 34.0-34.9, adult; Z79.4 Long term (current) use of insulin; Z79.01 Long term (current) use of anticoagulants; Z74.01 Bed confinement status; Z93.3 Colostomy status; Z96.0 Presence of urogenital implants; Z92.21 Personal history of antineoplastic chemotherapy; Z92.3 Personal history of irradiation; Z85.048 Personal history of other malignant neoplasm of rectum, rectosigmoid junction, and anus; Z90.49 Acquired absence of other specified parts of digestive tract; Z90.710 Acquired absence of both cervix and uterus; Z88.8 Allergy status to other drugs, medicaments and biological substances; Z87.891 Personal history of nicotine dependence
CPT/HCPCS: 36415; 36600; 50432; 51700; 70450; 70496; 70498; 71045; 74177; 74470; 76942; 80048; 80053; 80061; 81001; 82550; 82607; 82746; 82805; 82948; 83540; 83735; 84466; 84484; 85014; 85018; 85025; 85045; 85610; 85730; 86704; 86705; 86706; 86850; 86900; 86920; 87040; 87071; 87075; 87086; 87205; 87340; 88112; 88305; 93005; 94640; 94660; 94799; 99152; 99252; C1729; C1769; J0696; J1644; J1756; J2003; J2020; J2250; J2353; J2354; J2405; J2470; J7030; J7040; J7050; J7060; J7799; P9016; Q9967

== ENCOUNTER 2024-07-27 11:45 | Emergency (ER) | payer MEDICARE, OTHER ==
[~2024-07-27] VITALS: Ht 157.5 cm; Wt 86.2 kg
[~2024-07-27 11:45] MED LIST changes: +B COMPLEX1 EACH PO; +PANTOPRAZOLE SO40 MG PO
[2024-07-27 12:01] VITALS: TEMP 98.2
[2024-07-27 13:15] LABS: BASOPHILS # (AUTO) 0.1 (0.0-0.1); BASOPHILS % 0.6 % (0.0-1.0); EOSINOPHILS # (AUTO) 0.1 (0.0-0.4); EOSINOPHILS % 0.5 % (0.0-6.0); HEMATOCRIT 29.7 % (34.2-44.1); HEMOGLOBIN 8.8 g/dL (12.0-16.0); LYMPHOCYTES # (AUTO) 0.4 (1.0-3.2); LYMPHOCYTES % 2.4 % (18.0-39.1); MEAN CORPUSCULAR HGB CONC 29.6 g/dL (31-35); MONOCYTES % 6.2 % (4.4-11.3); NEUTROPHILS # (AUTO) 13.8 (2.1-6.9); NEUTROPHILS % 87.9 % (38.7-80.0); PLATELET COUNT 476 x10e3/uL (140-360); RED BLOOD COUNT 3.03 x10e6/uL (3.6-5.1); RED CELL DISTRIBUTION WIDTH 19.5 % (11.7-14.4); WHITE BLOOD COUNT 15.71 x10e3/uL (4.8-10.8)
[2024-07-27 13:35] LABS: ALBUMIN 2.8 g/dL (3.5-5.0); ALBUMIN/GLOBULIN RATIO 0.7 (0.8-2.0); ANION GAP 17.3 mmol/L (8-16); BILIRUBIN,TOTAL 0.2 mg/dL (0.2-1.2); CALCIUM 9.7 mg/dL (8.4-10.2); CREATININE, SERUM 1.75 mg/dL (0.57-1.11); TOTAL PROTEIN 6.9 g/dL (6.5-8.1)
[2024-07-27 13:37] LABS: POTASSIUM 3.3 mmol/L (3.5-5.1)
[2024-07-27 13:57] LABS: EOSINOPHILS % (MANUAL) 1 % (0-7); LYMPHOCYTES % (MANUAL) 5 % (19-48); MONOCYTES % (MANUAL) 4 % (3.4-9.0); NEUTROPHILS % (MANUAL) 90 % (40-74)
[2024-07-27 13:58] LABS: PLATELET ESTIMATE ADEQUATE; PLATELET MORPHOLOGY COMMENT NORMAL
[2024-07-27 14:16] LABS: BILIRUBIN,URINE NEGATIVE (NEGATIVE); CLARITY,URINE CLOUDY (CLEAR); GLUCOSE, URINE 1+ (NEGATIVE); KETONES,URINE NEGATIVE (NEGATIVE); LEUKOCYTE ESTERASE ,URINE LARGE (NEGATIVE); NITRITE,URINE NEGATIVE (NEGATIVE); PH,URINE 8.5 (5 - 7); PROTEIN,URINE DIPSTICK >=300 (NEGATIVE); URINE UROBILINOGEN 0.2 mg/dL (0.2 - 1)
[2024-07-27 14:17] LABS: COLOR,URINE PINK (YELLOW)
[2024-07-27 14:20] LABS: BACTERIA,URINE FEW /HPF; EPITHELIAL CELLS,URINE FEW /LPF; MUCUS,URINE FEW; RBC,URINE 21-50 /HPF (0-5); WBC,URINE (MAN) >50 /HPF (0-5)
[2024-07-27] MEDS: ASPIRIN 81 MG CHEW TAB PO ONE (14:35)
[2024-07-27 15:00] VITALS: PULSE 81; RESP 18; O2SAT 99
== END 2024-07-27 15:45 | disposition other institution (70) ==
LOC: ER 11:52
DX: R41.82 Altered mental status, unspecified (principal); I63.89 Other cerebral infarction; N39.0 Urinary tract infection, site not specified; Z79.01 Long term (current) use of anticoagulants
CPT/HCPCS: 36415; 70450; 71045; 80053; 81001; 84484; 85025; 93005; 99285; J0696

== ENCOUNTER 2024-07-31 07:30 | Inpatient (IN) | payer MEDICARE ==
[~2024-07-31] VITALS: Ht 157.5 cm; Wt 84.8 kg
[2024-07-31 07:43] VITALS: TEMP 97.7
[2024-07-31 09:05] LABS: BASOPHILS # (AUTO) 0.1 (0.0-0.1); BASOPHILS % 0.7 % (0.0-1.0); EOSINOPHILS # (AUTO) 0.2 (0.0-0.4); EOSINOPHILS % 1.4 % (0.0-6.0); HEMATOCRIT 32.6 % (34.2-44.1); HEMOGLOBIN 9.7 g/dL (12.0-16.0); LYMPHOCYTES # (AUTO) 0.8 (1.0-3.2); LYMPHOCYTES % 5.4 % (18.0-39.1); MEAN CORPUSCULAR HEMOGLOBIN 29.1 pg (28-32); MEAN CORPUSCULAR HGB CONC 29.8 g/dL (31-35); MEAN CORPUSCULAR VOLUME 97.9 fL (81-99); MONOCYTES # (AUTO) 1.3 (0.2-0.8); MONOCYTES % 9.6 % (4.4-11.3); NEUTROPHILS # (AUTO) 11.4 (2.1-6.9); NEUTROPHILS % 81.4 % (38.7-80.0); PLATELET COUNT 501 x10e3/uL (140-360); RED BLOOD COUNT 3.33 x10e6/uL (3.6-5.1); RED CELL DISTRIBUTION WIDTH 21.3 % (11.7-14.4); WHITE BLOOD COUNT 13.99 x10e3/uL (4.8-10.8)
[2024-07-31 09:22] LABS: INR 1.29; PARTIAL THROMBOPLASTIN TIME 34.9 seconds (23.8-35.5); PROTHROMBIN TIME 16.8 seconds (11.9-14.5)
[2024-07-31 10:34] LABS: ALBUMIN 2.8 g/dL (3.5-5.0); ALBUMIN/GLOBULIN RATIO 0.7 (0.8-2.0); BILIRUBIN,TOTAL 0.2 mg/dL (0.2-1.2); CALCIUM 10.2 mg/dL (8.4-10.2); CREATININE, SERUM 2.67 mg/dL (0.57-1.11); TOTAL PROTEIN 6.6 g/dL (6.5-8.1)
[2024-07-31] MEDS ORDERED: SODIUM CHLORIDE FLUSH 10 ML SYR INJ PRN (11:15)
[2024-07-31] MEDS ORDERED: ONDANSETRON HCL INJ 2MG/ML 2ML 2 MG/ML VIAL IV PRN (11:15)
[2024-07-31] MEDS: MEROPENEM 1 GM in SODIUM CHLORIDE 0.9% 100 ML IV ONE (11:59)
[2024-07-31 12:00] VITALS: PULSE 88; RESP 30
[2024-07-31 16:54] VITALS: BP 97/48; PULSE 72; RESP 20; TEMP 97.2; O2SAT 95
[2024-07-31] MEDS ORDERED: INSULIN REGULAR, HUMAN 100 UNIT/1 ML SQ SCH (18:00)
[2024-07-31] MEDS ORDERED: DEXTROSE 50% SYRINGE 50 ML IV PRN (19:45)
[2024-07-31 20:00] VITALS: BP 100/54; PULSE 91; RESP 20; TEMP 97.2; O2SAT 95
[2024-07-31 20:17] VITALS: BP 100/54; PULSE 91; RESP 22; TEMP 98.1; O2SAT 99
[2024-07-31] MEDS: ATORVASTATIN 40 MG TAB PO SCH (22:22)
[2024-08-01] VITALS (7 sets, daily range): BP systolic 105–137; BP diastolic 47–88; PULSE 75–99; RESP 16–21; TEMP 97–97.7; O2SAT 94–100
[2024-08-01] MEDS: INSULIN LISPRO 100 UNIT/1 ML 3ML VIAL SQ SCH
[2024-08-01] MEDS: CYANOCOBALAMIN PEG SCH (09:00)
[2024-08-01] MEDS ORDERED: METOPROLOL TARTRATE 25 MG TAB PO SCH (09:00)
[2024-08-01] MEDS: PYRIDOXINE PEG SCH (09:00)
[2024-08-01] MEDS: FOLIC ACID PEG SCH (09:00)
[2024-08-01] MEDS: [UNRECOGNIZED DRUG - OTHER] PO SCH (09:00)
[2024-08-01] MEDS: VITAMIN B COMPLEX PO SCH (09:00)
[2024-08-01] MEDS: PREGABALIN 25 MG CAP PO SCH (09:40)
[2024-08-01] MEDS: METOPROLOL TARTRATE 25 MG TAB PO SCH (09:41)
[2024-08-01] MEDS: FERROUS SULFATE 325 MG TAB PO SCH (09:42)
[2024-08-01] MEDS: PANTOPRAZOLE SOD 40 MG TABEC PO SCH (09:42)
[2024-08-01] MEDS: APIXABAN 5 MG TABLET PO SCH (09:42)
[2024-08-01] MEDS: AMIODARONE HCL 200 MG TAB PO SCH (09:42)
[2024-08-01 10:14] LABS: BASOPHILS # (AUTO) 0.1 (0.0-0.1); BASOPHILS % 0.5 % (0.0-1.0); EOSINOPHILS # (AUTO) 0.2 (0.0-0.4); EOSINOPHILS % 1.4 % (0.0-6.0); HEMATOCRIT 26.8 % (34.2-44.1); LYMPHOCYTES # (AUTO) 0.5 (1.0-3.2); LYMPHOCYTES % 3.4 % (18.0-39.1); MEAN CORPUSCULAR HEMOGLOBIN 29.5 pg (28-32); MEAN CORPUSCULAR HGB CONC 29.9 g/dL (31-35); MEAN CORPUSCULAR VOLUME 98.9 fL (81-99); MONOCYTES # (AUTO) 0.7 (0.2-0.8); MONOCYTES % 5.2 % (4.4-11.3); NEUTROPHILS # (AUTO) 12.3 (2.1-6.9); NEUTROPHILS % 87.6 % (38.7-80.0); PLATELET COUNT 538 x10e3/uL (140-360); RED BLOOD COUNT 2.71 x10e6/uL (3.6-5.1); RED CELL DISTRIBUTION WIDTH 20.4 % (11.7-14.4)
[2024-08-01 10:36] LABS: INR 1.47; PROTHROMBIN TIME 18.6 seconds (11.9-14.5)
[2024-08-01 10:37] LABS: PARTIAL THROMBOPLASTIN TIME 36.6 seconds (23.8-35.5)
[2024-08-01 10:51] LABS: ALBUMIN 2.8 g/dL (3.5-5.0); ALBUMIN/GLOBULIN RATIO 0.8 (0.8-2.0); ANION GAP 17.3 mmol/L (8-16); BILIRUBIN,TOTAL 0.2 mg/dL (0.2-1.2); CALCIUM 10.4 mg/dL (8.4-10.2); CREATININE, SERUM 3.11 mg/dL (0.57-1.11); POTASSIUM 4.3 mmol/L (3.5-5.1); TOTAL PROTEIN 6.5 g/dL (6.5-8.1)
[2024-08-01 15:34] LABS: LYMPHOCYTES,BODY FLUID 42 %; MONO/MACROPHG,BODY FLUID 13 %; NEUTROPHILS,BODY FLUID 45 %; TOTAL CELLS COUNTED (DIFF) 100
[2024-08-01 15:38] LABS: BODY FLUID APPEARANCE CLEAR; BODY FLUID COLOR YELLOW
[2024-08-01 15:39] LABS: BODY FLUID TYPE PLEURAL; RBC,BODY FLUID 4000 cells/uL; WBC,BODY FLUID 518 cells/uL
[2024-08-02] VITALS (8 sets, daily range): BP systolic 91–123; BP diastolic 47–59; PULSE 79–103; RESP 17–21; TEMP 97–98; O2SAT 90–100
[2024-08-02 08:43] LABS: BASOPHILS # (AUTO) 0.1 (0.0-0.1); BASOPHILS % 0.5 % (0.0-1.0); EOSINOPHILS # (AUTO) 0.2 (0.0-0.4); HEMATOCRIT 27.7 % (34.2-44.1); LYMPHOCYTES # (AUTO) 0.5 (1.0-3.2); LYMPHOCYTES % 4.2 % (18.0-39.1); MEAN CORPUSCULAR HEMOGLOBIN 29.2 pg (28-32); MEAN CORPUSCULAR HGB CONC 29.2 g/dL (31-35); MONOCYTES # (AUTO) 0.9 (0.2-0.8); MONOCYTES % 7.3 % (4.4-11.3); NEUTROPHILS # (AUTO) 9.9 (2.1-6.9); NEUTROPHILS % 84.3 % (38.7-80.0); PLATELET COUNT 513 x10e3/uL (140-360); RED BLOOD COUNT 2.77 x10e6/uL (3.6-5.1); RED CELL DISTRIBUTION WIDTH 20.8 % (11.7-14.4); WHITE BLOOD COUNT 11.68 x10e3/uL (4.8-10.8)
[2024-08-02 08:44] LABS: HEMOGLOBIN 8.1 g/dL (12.0-16.0)
[2024-08-02 09:01] LABS: ANION GAP 18.2 mmol/L (8-16); CALCIUM 10.2 mg/dL (8.4-10.2); CREATININE, SERUM 3.51 mg/dL (0.57-1.11); POTASSIUM 4.2 mmol/L (3.5-5.1)
[2024-08-02 10:40] LABS: PLATELET ESTIMATE SLIGHTLY INCREASED
[2024-08-02 10:41] LABS: ANISOCYTOSIS MODERATE; OVALOCYTES FEW; PLATELET MORPHOLOGY COMMENT NORMAL; POLYCHROMASIA FEW; RBC MORPHOLOGY COMMENT ABNORMAL; SPHEROCYTES MODERATE
[2024-08-02] MEDS ORDERED: HEPARIN SOD (PORCINE) 1000 UNIT/ML SDV IV PRN ×2 (10:45)
[2024-08-02] MEDS ORDERED: SODIUM CHLORIDE 0.9% 1000ML 2,000 ML IV PRN (10:45)
[2024-08-02] MEDS ORDERED: ALBUMIN 25% 12.5GM 0.25 GM/ML BTL IV PRN (11:30)
[2024-08-02] MEDS ORDERED: MEROPENEM 500 MG VIAL ONE (22:58)
[2024-08-03] VITALS (11 sets, daily range): BP systolic 85–148; BP diastolic 28–74; PULSE 89–113; RESP 18–20; TEMP 97.4–98.3; O2SAT 98–100
[2024-08-03 06:58] LABS: BASOPHILS # (AUTO) 0.1 (0.0-0.1); BASOPHILS % 0.5 % (0.0-1.0); EOSINOPHILS # (AUTO) 0.3 (0.0-0.4); EOSINOPHILS % 2.6 % (0.0-6.0); HEMATOCRIT 26.8 % (34.2-44.1); HEMOGLOBIN 7.9 g/dL (12.0-16.0); LYMPHOCYTES # (AUTO) 0.4 (1.0-3.2); LYMPHOCYTES % 3.6 % (18.0-39.1); MEAN CORPUSCULAR HEMOGLOBIN 29.3 pg (28-32); MEAN CORPUSCULAR HGB CONC 29.5 g/dL (31-35); MEAN CORPUSCULAR VOLUME 99.3 fL (81-99); MONOCYTES # (AUTO) 0.7 (0.2-0.8); NEUTROPHILS % 84.9 % (38.7-80.0); PLATELET COUNT 517 x10e3/uL (140-360); RED CELL DISTRIBUTION WIDTH 21.4 % (11.7-14.4); WHITE BLOOD COUNT 10.57 x10e3/uL (4.8-10.8)
[2024-08-03 07:12] LABS: ANION GAP 19.8 mmol/L (8-16); CALCIUM 9.9 mg/dL (8.4-10.2); CREATININE, SERUM 2.81 mg/dL (0.57-1.11); POTASSIUM 3.8 mmol/L (3.5-5.1)
[2024-08-03] MEDS: MIDODRINE HCL 5 MG TABLET PO PRN (12:36)
[2024-08-04] VITALS (8 sets, daily range): BP systolic 105–116; BP diastolic 48–62; PULSE 72–107; RESP 19–21; TEMP 97.4–97.7; O2SAT 95–100
[2024-08-04 01:20] LABS: CLARITY,URINE CLOUDY (CLEAR); COLOR,URINE YELLOW (YELLOW); NITRITE,URINE NEGATIVE (NEGATIVE); PH,URINE 7 (5 - 7)
[2024-08-04 01:21] LABS: BILIRUBIN,URINE 1+ (NEGATIVE); GLUCOSE, URINE NEGATIVE (NEGATIVE); KETONES,URINE TRACE (NEGATIVE); LEUKOCYTE ESTERASE ,URINE LARGE (NEGATIVE); PROTEIN,URINE DIPSTICK >=300 (NEGATIVE); URINE UROBILINOGEN 1 mg/dL (0.2 - 1)
[2024-08-04 01:28] LABS: AMORPHOUS SEDIMENT,URINE MANY; BACTERIA,URINE MANY /HPF; EPITHELIAL CELLS,URINE FEW /LPF; RBC,URINE >50 /HPF (0-5); WBC,URINE (MAN) >50 /HPF (0-5)
[2024-08-04 06:12] LABS: ANION GAP 16.8 mmol/L (8-16); CALCIUM 10.6 mg/dL (8.4-10.2); CREATININE, SERUM 3.27 mg/dL (0.57-1.11); POTASSIUM 3.8 mmol/L (3.5-5.1)
[2024-08-04] MEDS: SODIUM CHLORIDE 0.9% 1000ML 2,000 ML ONE (06:14)
[2024-08-04] MEDS: SODIUM CHLORIDE 0.9% 250ML 250 ML ONE (22:00)
[2024-08-05] VITALS (8 sets, daily range): BP systolic 85–113; BP diastolic 47–64; PULSE 83–103; RESP 16–23; TEMP 97.3–97.9; O2SAT 95–100
[2024-08-05 05:24] LABS: TOTAL PROTEIN,BODY FLUID 2.9 g/dL
[2024-08-05] MEDS: APIXABAN 2.5 MG TABLET PO SCH (09:00)
[2024-08-05] MEDS: IRON SUCROSE 100 MG in SODIUM CHLORIDE 0.9% 100 ML IV SCH (09:00)
[2024-08-05] MEDS: EPOETIN ALFA-EPBX 10,000 UNIT/ML VIAL SC ONE (10:08)
[2024-08-05] MEDS ORDERED: MIDODRINE HCL 5 MG TABLET PO SCH (14:00)
[2024-08-05] MEDS: MIDODRINE HCL 5 MG TABLET PO SCH (16:47)
[2024-08-06] VITALS (7 sets, daily range): BP systolic 110–123; BP diastolic 50–58; PULSE 85–101; RESP 16–21; TEMP 97.6–98.4; O2SAT 95–99
[2024-08-06 05:11] LABS: HEPATITIS B SURFACE AB QUANT <3.5
[2024-08-06 05:13] LABS: HEPATITIS B SURFACE AG (P) Negative
[2024-08-06 05:14] LABS: HEPATITIS B CORE AB TOTAL Positive
[2024-08-06 05:27] LABS: BASOPHILS # (AUTO) 0.1 (0.0-0.1); BASOPHILS % 0.5 % (0.0-1.0); EOSINOPHILS # (AUTO) 0.4 (0.0-0.4); EOSINOPHILS % 2.5 % (0.0-6.0); HEMATOCRIT 26.3 % (34.2-44.1); HEMOGLOBIN 7.4 g/dL (12.0-16.0); LYMPHOCYTES # (AUTO) 0.5 (1.0-3.2); LYMPHOCYTES % 3.4 % (18.0-39.1); MEAN CORPUSCULAR HEMOGLOBIN 29.2 pg (28-32); MEAN CORPUSCULAR HGB CONC 28.1 g/dL (31-35); MONOCYTES # (AUTO) 1.1 (0.2-0.8); MONOCYTES % 7.3 % (4.4-11.3); NEUTROPHILS # (AUTO) 12.3 (2.1-6.9); NEUTROPHILS % 82.8 % (38.7-80.0); PLATELET COUNT 472 x10e3/uL (140-360); RED BLOOD COUNT 2.53 x10e6/uL (3.6-5.1); WHITE BLOOD COUNT 14.83 x10e3/uL (4.8-10.8)
[2024-08-06 05:53] LABS: ANION GAP 14.9 mmol/L (8-16); CALCIUM 9.6 mg/dL (8.4-10.2); CREATININE, SERUM 2.21 mg/dL (0.57-1.11); POTASSIUM 3.9 mmol/L (3.5-5.1)
[2024-08-06 07:39] LABS: BAND NEUTROPHILS % (MANUAL) 1 %; EOSINOPHILS % (MANUAL) 2 % (0-7); LYMPHOCYTES % (MANUAL) 5 % (19-48); MONOCYTES % (MANUAL) 5 % (3.4-9.0); NEUTROPHILS % (MANUAL) 87 % (40-74); NUCLEATED RED BLOOD CELLS 1
[2024-08-06 07:40] LABS: ANISOCYTOSIS MODERATE; HYPOCHROMASIA MODERATE; PLATELET ESTIMATE ADEQUATE; PLATELET MORPHOLOGY COMMENT NORMAL; POLYCHROMASIA FEW; RBC MORPHOLOGY COMMENT ABNORMAL
[2024-08-06 07:41] LABS: OVALOCYTES FEW
[2024-08-06] MEDS: FUROSEMIDE 40 MG TAB PO ONE (16:33)
[2024-08-07] VITALS (8 sets, daily range): BP systolic 102–135; BP diastolic 45–65; PULSE 76–103; RESP 15–20; TEMP 97.1–98.4; O2SAT 98–100
[2024-08-07 06:07] LABS: ANION GAP 17.1 mmol/L (8-16); CALCIUM 10.7 mg/dL (8.4-10.2); CREATININE, SERUM 2.73 mg/dL (0.57-1.11); POTASSIUM 4.1 mmol/L (3.5-5.1)
[2024-08-07] MEDS: FUROSEMIDE 40 MG TAB PO SCH (08:25)
[2024-08-07] MEDS: PANTOPRAZOLE SODIUM 40 MG SUSPDR.PKT PO SCH (10:09)
[2024-08-08] VITALS (7 sets, daily range): BP systolic 100–132; BP diastolic 50–77; PULSE 90–108; RESP 14–20; TEMP 97.2–98.4; O2SAT 92–100
[2024-08-08] MEDS ORDERED: ONDANSETRON HCL 4 MG ORAL DISINTEGRATING TAB PO PRN (13:45)
[2024-08-09] VITALS (7 sets, daily range): BP systolic 97–152; BP diastolic 47–72; PULSE 86–107; RESP 18–20; TEMP 97.3–98.8; O2SAT 93–100
[2024-08-09 08:09] LABS: ANION GAP 14.2 mmol/L (8-16); CALCIUM 10.4 mg/dL (8.4-10.2); CREATININE, SERUM 2.51 mg/dL (0.57-1.11); POTASSIUM 4.2 mmol/L (3.5-5.1)
[2024-08-10] VITALS (10 sets, daily range): BP systolic 111–139; BP diastolic 40–82; PULSE 85–100; RESP 18–20; TEMP 97.4–98.6; O2SAT 98–100
[2024-08-10] MEDS ORDERED: CIPROFLOXACIN 250 MG TAB PEG SCH (18:30)
[2024-08-10] MEDS: CYANOCOBALAMIN INJ 1,000 MCG/ML VIAL IM ONE (18:46)
[2024-08-10] MEDS: CIPROFLOXACIN 250 MG TAB PEG SCH (21:34)
[2024-08-10] MEDS: INSULIN GLARGINE 100 UNITS/ML VIAL SQ SCH (21:40)
[2024-08-10] MEDS ORDERED: ONDANSETRON HCL 4 MG ORAL DISINTEGRATING TAB SL PRN (21:45)
[2024-08-11] VITALS (7 sets, daily range): BP systolic 114–149; BP diastolic 54–79; PULSE 85–102; RESP 20–25; TEMP 97.4–97.7; O2SAT 94–97
[2024-08-11 06:14] LABS: BASOPHILS # (AUTO) 0.1 (0.0-0.1); BASOPHILS % 0.3 % (0.0-1.0); EOSINOPHILS # (AUTO) 0.2 (0.0-0.4); EOSINOPHILS % 0.9 % (0.0-6.0); HEMATOCRIT 25.5 % (34.2-44.1); HEMOGLOBIN 7.2 g/dL (12.0-16.0); LYMPHOCYTES # (AUTO) 0.4 (1.0-3.2); LYMPHOCYTES % 1.8 % (18.0-39.1); MEAN CORPUSCULAR HEMOGLOBIN 29.5 pg (28-32); MEAN CORPUSCULAR HGB CONC 28.2 g/dL (31-35); MEAN CORPUSCULAR VOLUME 104.5 fL (81-99); MONOCYTES # (AUTO) 1.1 (0.2-0.8); MONOCYTES % 5.5 % (4.4-11.3); NEUTROPHILS # (AUTO) 17.9 (2.1-6.9); NEUTROPHILS % 90.1 % (38.7-80.0); PLATELET COUNT 423 x10e3/uL (140-360); RED BLOOD COUNT 2.44 x10e6/uL (3.6-5.1); RED CELL DISTRIBUTION WIDTH 20.5 % (11.7-14.4); WHITE BLOOD COUNT 19.86 x10e3/uL (4.8-10.8)
[2024-08-11 07:45] LABS: ANION GAP 15.6 mmol/L (8-16); CALCIUM 10.7 mg/dL (8.4-10.2); CREATININE, SERUM 2.42 mg/dL (0.57-1.11); POTASSIUM 4.6 mmol/L (3.5-5.1)
[2024-08-11] MEDS: MIDODRINE HCL 5 MG TABLET PEG SCH (08:48)
[2024-08-11] MEDS: PANTOPRAZOLE SODIUM 40 MG SUSPDR.PKT PEG SCH (08:49)
[2024-08-11] MEDS: METOPROLOL TARTRATE 25 MG TAB PEG SCH (08:49)
[2024-08-11] MEDS: FUROSEMIDE 40 MG TAB PEG SCH (08:50)
[2024-08-11] MEDS: PREGABALIN 25 MG CAP PEG SCH (08:50)
[2024-08-11] MEDS ORDERED: EPINEPHRINE HCL SYRINGE ONE (10:28)
[2024-08-11] MEDS ORDERED: ATROPINE SULFATE 0.1 MG/ML 10ML SYR ONE (10:28)
[2024-08-11] MEDS ORDERED: IRON SUCROSE 100 MG in SODIUM CHLORIDE 0.9% 100 ML IV SCH (11:30)
[2024-08-11] MEDS: EPOETIN ALFA-EPBX 10,000 UNIT/ML VIAL SC ONE (11:35)
[2024-08-11] MEDS ORDERED: ALBUTEROL/IPRATROPIUM 3 ML NEB NEB PRN (16:00)
[2024-08-11] MEDS: Vancomycin IV 1 GM in SODIUM CHLORIDE 0.9% 250ML 250 ML IV ONE (17:15)
[2024-08-11] MEDS ORDERED: ALBUTEROL/IPRATROPIUM 3 ML NEB NEB SCH (19:00)
== END 2024-08-11 19:50 | disposition expired | DRG 698 ==
LOC: ER 07:35 → ERHOLD 11:22 → MED/SURG2 14:43 → OBSVTOIN 19:36 → ICU 08-11 16:11
PROVIDERS: ADMIT Internal Medicine; ATTEND Internal Medicine
PROC: 0W993ZZ Drainage of Right Pleural Cavity, Percutaneous Approach (ICD-10-PCS; 2024-08-01)
PROC: 5A1D70Z Performance of Urinary Filtration, Intermittent, Less than 6 Hours Per Day (ICD-10-PCS; principal; 2024-08-02)
PROC: 5A1D70Z Performance of Urinary Filtration, Intermittent, Less than 6 Hours Per Day (ICD-10-PCS; 2024-08-05)
PROC: 5A1D70Z Performance of Urinary Filtration, Intermittent, Less than 6 Hours Per Day (ICD-10-PCS; 2024-08-07)
PROC: 5A1D70Z Performance of Urinary Filtration, Intermittent, Less than 6 Hours Per Day (ICD-10-PCS; 2024-08-09)
DX: T83.511A Infection and inflammatory reaction due to indwelling urethral catheter, initial encounter (principal); G92.8 Other toxic encephalopathy; N18.6 End stage renal disease; I50.23 Acute on chronic systolic (congestive) heart failure; R53.2 Functional quadriplegia; N13.1 Hydronephrosis with ureteral stricture, not elsewhere classified; C19 Malignant neoplasm of rectosigmoid junction; J98.11 Atelectasis; I13.2 Hypertensive heart and chronic kidney disease with heart failure and with stage 5 chronic kidney disease, or end stage renal disease; J91.8 Pleural effusion in other conditions classified elsewhere; C79.89 Secondary malignant neoplasm of other specified sites; D68.9 Coagulation defect, unspecified; N17.9 Acute kidney failure, unspecified; E44.0 Moderate protein-calorie malnutrition; N39.0 Urinary tract infection, site not specified; T83.512A Infection and inflammatory reaction due to nephrostomy catheter, initial encounter; I46.9 Cardiac arrest, cause unspecified; E11.22 Type 2 diabetes mellitus with diabetic chronic kidney disease; Z79.4 Long term (current) use of insulin; Z99.2 Dependence on renal dialysis; E66.9 Obesity, unspecified; Z68.34 Body mass index [BMI] 34.0-34.9, adult; Z71.3 Dietary counseling and surveillance; D63.8 Anemia in other chronic diseases classified elsewhere; D63.1 Anemia in chronic kidney disease; R31.29 Other microscopic hematuria; E03.9 Hypothyroidism, unspecified; I95.3 Hypotension of hemodialysis; Z93.1 Gastrostomy status; Z71.81 Spiritual or religious counseling; R53.81 Other malaise; R80.9 Proteinuria, unspecified; Z93.3 Colostomy status; Z66 Do not resuscitate; Z87.891 Personal history of nicotine dependence; Z79.01 Long term (current) use of anticoagulants; Z92.21 Personal history of antineoplastic chemotherapy; Z92.3 Personal history of irradiation; Z79.899 Other long term (current) drug therapy
CPT/HCPCS: 32555; 36415; 71045; 71250; 74176; 74470; 80048; 80053; 81001; 82040; 82945; 82948; 83615; 84157; 85025; 85610; 85730; 86704; 86706; 86850; 86900; 86920; 87070; 87205; 87340; 87350; 88112; 88305; 89051; 90962; 92950; 94660; 94799; 96372; 99252; 99285; J0171; J1644; J1756; J2185; J2470; J3420; J7030; J7050